=== PATIENT | female | born 1985 | race Hispanic/Latino ===

== ENCOUNTER 2018-03-22 12:07 | Emergency (ER) | payer MEDICAID, SELFPAY ==
[2018-03-22 12:08] VITALS: BP 120/95; PULSE 125; RESP 20; TEMP 36.4; O2SAT 98; BMI 23.4
--- NOTE | 2018-03-22 13:23 | ED.DCSUM_ITS ---
- ER Visit Summary Date of Service: 03/22/18 Chief Complaint: Nosebleed History of Present Illness: The patient is a 32 F presenting with nosebleed which started 20 minutes prior to arrival. She had bleeding from the left side of her nose. She denies trauma. She states she was sneezing frequently before it started. She denies other complaints. Physical Examination: Vitals are stable. Patient is afebrile. Alert no acute distress. HEENT exam dried blood left nares, no active bleeding. No blood in posterior pharynx Neck is supple. Lungs are clear and equal bilaterally. Heart is regular rate and rhythm. Extremities are unremarkable. Skin is warm and dry. Remainder of exam is unremarkable. Emergency Department Course and Treatment: Direct pressure was applied. Cotton ball soaked in Afrin was instilled in the left nares. On repeat exam there is no active bleeding. She was observed in the ED and had no further bleeding. She is advised to follow-up with her primary care physician. Advised return to ED for worsening complaints. Disposition: Discharge home Impression: Epistaxis, resolved This note was generated with [employer] dictation software. It may contain incorrect words, spelling, and punctuation that were not noted in review of the chart prior to signing ED Disposition - Plan for ED Patient: Chief Complaint: Nosebleed Referrals: Care Physician,No Primary [Primary Care Provider] -
--- NOTE | 2018-03-22 14:02 | ED.DEP ---
ED Disposition - Plan for ED Patient: Chief Complaint: Nosebleed Instructions: Nosebleed Referrals: Care Physician,No Primary [Primary Care Provider] - Francois Miller MD [NON-STAFF] -
[2018-03-22 14:12] VITALS: BP 142/100; PULSE 86; RESP 14; O2SAT 96
== END 2018-03-22 14:12 | disposition home or self-care (01) ==
LOC: ED 13:21
PROVIDERS: Emergency Provider Emergency Medicine; Family Provider Family Medicine
DX: R04.0 Epistaxis (principal)
CPT/HCPCS: 99282

== ENCOUNTER 2019-04-13 22:11 | Emergency (ER) | payer MEDICAID, SELFPAY ==
[2019-04-13 22:13] VITALS: BP 163/103; PULSE 90; RESP 18; TEMP 36.6; O2SAT 97; BMI 26.6
[2019-04-13 23:03] LABS: Bacteria 0 SEEN /hpf (None Seen); Mucous, Urine 0 SEEN /hpf (<or=2+)
[2019-04-13 23:07] LABS: Color, Urine Yellow (Yellow); Glucose, Dipstick Normal (Normal); Ketone-Dipstick Negative (Negative); Leukocyte Esterase-Dipstick 500 /ul (Negative); Nitrite-Dipstick Negative (Negative); Occult Blood-Urine 250 /ul (Negative); Protein-Dipstick 15 mg/dl (Negative); Urine Bilirubin Dipstick Negative (Negative); Urine Clarity Sl. Cloudy (Clear); Urine Urobilinogen Normal (Normal)
[2019-04-13 23:08] LABS: Absolute Lymphocyte Count 1.24 X10^3/ul (0.83-4.51); Basophil# 0.03 X10^3/uL; Basophil% 0.4 % (0-1); Eosinophil# 0.09 X10^3/uL; Eosinophils% 1.1 % (0-5); Hematocrit 42.9 % (37-47); Lymphocyte # 1.24 X10^3/ul (4.0); Lymphocyte % 15.1 % (19-41); Mean Corp Hgb Conc 32.6 g/gl (32-36); Mean Corpuscular Volume 94.9 fL (81-99); Mean Platelet Vol. 10.6 fl (6.2-12.0); Monocyte# 0.81 X10^3/uL; Monocyte% 9.9 % (0-10); Neutrophil # 6.01 X10^3/uL (2.7-7.7); Neutrophil % 73.4 % (47-70); POSITIVE COUNT NO; POSITIVE DIFFERENTIAL NO; POSITIVE MORPHOLOGY NO; Platelet Count 224 K/mm3 (150-450); RBC Distribution Width CV 12.8 % (11.6-14.6); RBC Distribution Width SD 43.6 fl (35.1-43.9); Red Blood Count 4.52 M/mm3 (4.2-5.4); White Blood Count 8.2 K/mm3 (4.4-11.0)
[2019-04-13 23:12] LABS: Internal QC Validated? YES +Cl - CLEAR BKGD; Pregnancy, Urine Negative Negative
--- NOTE | 2019-04-13 23:14 | US_ITS ---
HISTORY: PELVIC PAIN RLQ- 2 MONTHS C SECTIONS ADDITIONAL HISTORY: None provided. COMPARISON: None TECHNIQUE: Transvaginal sonographic images of the pelvis were acquired utilizing grayscale, color Doppler and spectral Doppler imaging. Subsequent transabdominal images of the ovaries were obtained with grayscale, color and spectral Doppler imaging. FINDINGS: UTERUS: Normal in size on transvaginal imaging measuring 7.4 x 4.1 x 3.4 cm. Coarsened echotexture without distinct mass. ENDOMETRIUM: Unremarkable on transvaginal imaging measuring 4 mm. OVARIES: Unremarkable measuring 2.9 x 2.8 x 2.1 cm on the right and 3.1 x 2.2 x 2.1 cm on the left. Flow is demonstrated in the ovaries was spectral Doppler evaluation. ADNEXA: No mass. FREE FLUID: None detected. US/Transvaginal Non- IMPRESSION: No acute pelvic abnormality is sonographically apparent. at 0006 Reported and signed by: Sherrell Shay MD Electronically Signed: Sherrell Shay MD at 0:06 EDT Tel , Service support ,
--- NOTE | 2019-04-13 23:14 | RAD_ITS ---
HISTORY: Pain RAD-EXT/JTNKI ADDITIONAL HISTORY: None provided. COMPARISON: None TECHNIQUE: Left hand 3 views Number of images including paperwork: 3 FINDINGS: BONES: No acute fracture. JOINTS: No subluxation. SOFT TISSUES: No distinct foreign body. RAD/Hand Min 3 Views IMPRESSION: No acute osseous abnormality. at 0009 Reported and signed by: Sherrell Shay MD Electronically Signed: Sherrell Shay MD at 0:09 EDT Tel , Service support ,
[2019-04-13 23:15] LABS: Amorphous Sediment 1+ URATE; Red Blood Cells-Urine 10-25 SEEN /hpf (0-5); Squamous Epithelial Cells - UA 0-5 SEEN /hpf (5-10); White Blood Cells 25-50 SEEN /hpf (0-5)
[2019-04-13 23:29] LABS: Anion Gap 6 (5-15); BUN 9 mg/dL (7-18); BUN/Creat Ratio 14.2 RATIO (10-20); Chloride 106 mmol/L (98-107); Creatinine, Serum 0.63 mg/dL (0.55-1.02); EST Glomerular Filtration Rate 115 mL/min (>60); Est Glom Filt Rate - Afr Amer 139 mL/min (>60); Estimated Creatinine Clearance 121.17 ml/min; Glucose 79 mg/dL (74-106); Potassium 3.1 mmol/L (3.5-5.1); Sodium Level 140 mmol/L (136-145)
--- NOTE | 2019-04-14 00:16 | ED.DCSUM_ITS ---
- ER Visit Summary Date of Service: 04/14/19 Chief Complaint: Pelvic pain and vaginal bleeding History of Present Illness: The patient is a 33 F who presents with pelvic pain and vaginal bleeding. This began actually 6 to 7 days ago. Her last menstrual period was about 2 weeks ago. She is her bleeding was initially heavy and she was passing clots. This is actually significantly decreased and she only complains of mild bleeding currently. However she continues to have pelvic pain which is sharp located suprapubically and on the right side of the pelvis. She denies any dysuria frequency urgency. No fevers nausea vomiting. She does have a history of prior ectopic with right salpingectomy and then a tubal ligation later. 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 She also complains of left hand pain worse with movement which began earlier today without known injury. Physical Examination: Blood pressure 163/103 vitals otherwise unremarkable No distress Heart regular rate and rhythm Lungs clear Abdomen soft nondistended On pelvic exam she has no active bleeding although she does have some thin yellow cervical discharge no cervical friability or erythema no active bleeding Patient does have some tenderness of the right pelvis and suprapubically Patient has tenderness of the left hand but no deformity active full range of motion brisk capillary refill normal sensation Test Results: CBC BMP notable only for potassium 3.1. negative. UA does show signs of possible UTI with 25-50 WBCs. 500 leukocyte esterase. Transvaginal pelvic ultrasound shows no acute abnormality and x-ray of the hand shows no acute osseous abnormality. Emergency Department Course and Treatment: Work-up as above unremarkable except UTI. We will treat with Bactrim. She was also given a prescription for naproxen for pain. We referred her to gynecology for outpatient follow-up. Treatment Plan: [] Disposition: Discharge Impression: Pelvic pain Left hand pain UTI This note was generated with [employer] dictation software. It may contain incorrect words, spelling, and punctuation that were not noted in review of the chart prior to signing ED Disposition - Plan for ED Patient: Referrals: Care Physician,No Primary [Primary Care Provider] -
--- NOTE | 2019-04-14 00:22 | ED.DEP ---
ED Disposition - Plan for ED Patient: Instructions: PELVIC PAIN, Unknown Cause, Understanding Urinary Tract Infections (UTIs) Prescriptions: Smz/Tmp Ds [Bactrim Ds] 1 tab PO BID #6 tab Prescription Printed Naproxen [Naprosyn] 500 mg PO BID #20 tab Prescription Printed Referrals: Care Physician,No Primary [Primary Care Provider] - Heber Clark [STAFF PHYSICIAN] -
[2019-04-14 00:34] VITALS: BP 158/98; PULSE 84; PULSE 87; RESP 16; O2SAT 98
[2019-04-14 02:02] LABS: Chlamydia Trachomatis by PCR Negative (Negative); Probe Check PASS
[2019-04-14 02:03] LABS: Neisserai gonorrhoeae by PCR Positive (Negative)
--- NOTE | 2019-04-14 02:06 | ED.RN ---
LAB CALLED POSITIVE GONORRHEA ON THIS PT, DR WEBBER NOTIFIED, WILL HAVE MORNING STAFF CALL PT AND ADVISE HER OF RESULT
== END 2019-04-14 00:35 | disposition home or self-care (01) ==
LOC: ED 23:57
PROVIDERS: Emergency Provider Emergency Medicine
DX: N39.0 Urinary tract infection, site not specified (principal); A54.9 Gonococcal infection, unspecified; N93.9 Abnormal uterine and vaginal bleeding, unspecified; R10.2 Pelvic and perineal pain; M79.642 Pain in left hand; I10 Essential (primary) hypertension
CPT/HCPCS: 73130; 76830; 80048; 81001; 81025; 85025; 87491; 87591; 93976; 99283; A4216

== ENCOUNTER 2019-04-14 08:05 | Emergency (ER) | payer MEDICAID, SELFPAY ==
[2019-04-13 22:13] VITALS: BMI 26.6
[2019-04-14 08:07] VITALS: BP 141/90; PULSE 104; RESP 17; TEMP 36.7; O2SAT 97; BMI 27.8
[2019-04-14] MEDS: HYDROmorphone 1 MG/ML Syringe IV (09:02)
[2019-04-14] MEDS: Ondansetron 4 MG/2 ML Vial IV (09:02)
[2019-04-14] MEDS: 0.9% Normal Saline 1,000 ML 999 ML IV (09:02)
[2019-04-14 09:21] LABS: Erythrocyte Sedimentation Rate 9 mm/hr (0-20)
[2019-04-14 09:23] LABS: Absolute Lymphocyte Count 1.18 X10^3/ul (0.83-4.51); Absolute Neutrophil Count 11.2 X10^3/uL (2.0-7.7); Basophil# 0.02 X10^3/uL; Basophil% 0.1 % (0-1); Eosinophil# 0.06 X10^3/uL; Eosinophils% 0.4 % (0-5); Hematocrit 43.4 % (37-47); Hemoglobin 14.7 g/dl (12.0-15.0); Lymphocyte # 1.18 X10^3/ul (4.0); Lymphocyte % 8.8 % (19-41); Mean Corp Hgb Conc 33.9 g/gl (32-36); Mean Corpuscular Hgb 32.4 pg (27.0-32.0); Mean Corpuscular Volume 95.6 fL (81-99); Mean Platelet Vol. 10.5 fl (6.2-12.0); Monocyte# 0.88 X10^3/uL; Monocyte% 6.6 % (0-10); Neutrophil # 11.23 X10^3/uL (2.7-7.7); Platelet Count 224 K/mm3 (150-450); RBC Distribution Width CV 12.9 % (11.6-14.6); RBC Distribution Width SD 45.3 fl (35.1-43.9); Red Blood Count 4.54 M/mm3 (4.2-5.4); White Blood Count 13.4 K/mm3 (4.4-11.0)
[2019-04-14 09:24] LABS: POSITIVE COUNT NO; POSITIVE DIFFERENTIAL NO; POSITIVE MORPHOLOGY NO
[2019-04-14 09:28] LABS: Anion Gap 7 (5-15); BUN 7 mg/dL (7-18); BUN/Creat Ratio 12.9 RATIO (10-20); CRP 8.53 mg/L (0.0-3.0); Chloride 102 mmol/L (98-107); Creatinine, Serum 0.54 mg/dL (0.55-1.02); EST Glomerular Filtration Rate 137 mL/min (>60); Est Glom Filt Rate - Afr Amer 166 mL/min (>60); Estimated Creatinine Clearance 147.81 ml/min; Glucose 94 mg/dL (74-106); Potassium 3.4 mmol/L (3.5-5.1); Sodium Level 139 mmol/L (136-145)
--- NOTE | 2019-04-14 09:49 | ED.DCSUM_ITS ---
- ER Visit Summary Date of Service: 04/14/19 Chief Complaint: Hand pain pain History of Present Illness: The patient is a 33 F who presents with left hand pain. The symptoms started last night. The patient was seen in the ED last night for pelvic pain and bleeding. She was diagnosed with gonorrhea. X-rays were performed of her left hand and were negative. She was discharged home with anti-inflammatories. Patient woke up this morning with increasing hand pain. She is right-hand dominant. She has pain primarily in her left index finger. Her left index finger is swollen and she cannot even move it because it so painful. She never had this before. Denies any history of IV drug abuse. Denies systemic symptoms like fever. Denies any recent trauma or injuries. Physical Examination: Left hand is swollen primarily over the left index finger. She has fusiform swelling. Skin is intact. Finger is held in flexion. Pain over the flexor tendons. Pain with extension. Test Results: White count has increased to 13.4. Potassium 3.4. ESR 9 and CRP 8.53. X-rays were not repeated. Emergency Department Course and Treatment: Patient treated with ceftriaxone for her gonorrhea infection. I repeated this. She now has a leukocytosis. CRP is elevated. Patient was treated with Dilaudid, fluids, Zofran. I contacted [facility] who advised outpatient follow-up. I believe the patient should be evaluated by hand surgery today. Patient was transferred to [facility]. We do not have hand surgery or the appropriate specialist available at this facility. Treatment Plan: As above Disposition: Transfer Impression: 1. Left hand pain 2. Gonorrhea This note was generated with [employer] dictation software. It may contain incorrect words, spelling, and punctuation that were not noted in review of the chart prior to signing ED Disposition - Plan for ED Patient: Referrals: Michael Richter MD [Primary Care Provider] -
[2019-04-14] MEDS: Ceftriaxone 500 MG Vial 250 MG IM (10:06)
[2019-04-14 10:07] VITALS: BP 132/83; PULSE 97; RESP 16; O2SAT 97
[2019-04-14 10:18] VITALS: BP 137/72; PULSE 69; RESP 12; O2SAT 97
== END 2019-04-14 10:39 | disposition short-term general hospital (02) ==
PROVIDERS: Emergency Provider Emergency Medicine; Family Provider Internal Medicine; PCP Internal Medicine
DX: M79.642 Pain in left hand (principal); M79.89 Other specified soft tissue disorders; A54.9 Gonococcal infection, unspecified; Z72.0 Tobacco use
CPT/HCPCS: 80048; 85025; 85652; 86140; 96361; 96372; 96374; 96375; 99284; J7030; J2405

== ENCOUNTER 2020-03-20 11:31 | Emergency (ER) | payer MEDICAID, SELFPAY ==
[2020-03-20 11:32] VITALS: BP 157/100; PULSE 103; RESP 17; TEMP 36.6; O2SAT 97; BMI 27.1
--- NOTE | 2020-03-20 11:44 | CT_ITS ---
STUDY: CT CHEST WITHOUT CONTRAST REASON FOR EXAM: Female, 34 years old. PT STATED PAIN AFTER VOMITING TODAY RADIATION DOSAGE (If Supplied By Facility): CTDIvol = ( 9.68 ) mGy, DLP = ( 340.89 ) mGycm TECHNIQUE: Transaxial imaging was performed without the administration of intravenous contrast material. Multiplanar coronal and sagittal images were reformatted. Individualized dose optimization techniques were used for this CT. COMPARISON: None. FINDINGS: The lungs are normal. There is no demonstrated pleural abnormality. Normal heart and pericardium. Normal mediastinum. Normal hilar regions. Normal unenhanced pulmonary arteries. Normal aorta arch and descending thoracic aorta. Normal osseous structures. There is a 4.6 cm linear collection of air in the region of the mid esophagus. I cannot rule out a small esophageal tear. Correlation with a Gastrografin swallow is recommended. CT/Chest without Contrast IMPRESSION: Possible focal tear in the mid esophagus as described. Correlation with a Gastrografin swallow is recommended. Electronically Signed: Clif Houston, at 12:43 EDT , Service support ,
--- NOTE | 2020-03-20 11:44 | ED.VIS.GEN ---
History of Present Illness Chief Complaint: GI Bleed Informant: Patient Onset: Today Narrative: Patient reports a history of bulimia. She is had increased anxiety recently. When she made herself vomit this morning she noted black emesis. Since that time she states she cannot drink without having significant pain in her chest. She is concerned that she may have tore something. She states she is never had blood in her emesis previously. She denies dark tarry stools. - Past Medical History (1) Bulimia Status: Chronic Past Medical History - Allergies and Home Meds Allergies/Adverse Reactions: Allergies No Known Allergies Allergy (Verified 03/20/20 11:31) Primary Care Physician: Michael Richter MD [STAFF PHYSICIAN] - Prior records reviewed: Yes Smoking Status: Current every day smoker Review of Systems General: Denies: Chills, Fever Eyes: Denies: Visual changes - bilaterally ENT: Denies: Bilateral ear pain Cardiovascular: Reports: Chest pain Respiratory: Denies: Dyspnea Gastrointestinal: Reports: Vomiting. Denies: Melena, Hematochezia Genitourinary: Denies: Dysuria Musculoskeletal: Denies: Extremity Pain Skin: Denies: Rash Neurological: Denies: Headache Hematologic: Denies: Easy bruising, Easy bleeding Allergy: Denies: Uticaria Physical Exam Vital Signs/Narrative: Vital Signs Temp Pulse Resp BP Pulse Ox 03/20/20 11:32 97.9 F 103 H 17 157/100 H 97 Inital Vital Signs reviewed: Yes General: Well nourished, Well developed Head: Normocephalic ENT: Moist mucous membranes Neck: Supple Cardiovascular: Regular rate, Regular rhythm Respiratory: No distress, CTA bilaterally Abdomen: Soft, Nontender, Hypoactive bowel sounds Extremities: Nontender Skin: Normal color Neurological: Alert, Oriented x3 Psychological: Normal affect Diagnostic/Tx/Re-eval Impressions Chest CT 03/20/20 11:44 IMPRESSION: Possible focal tear in the mid esophagus as described. Correlation with a Gastrografin swallow is recommended. Electronically Signed: Clif Houston, at 12:43 EDT , Service support , Barium Swallow X-Ray 03/20/20 13:01 IMPRESSION: Normal plain film x-ray examination (barium swallow) of the esophagus. Electronically Signed: Clif Houston, at 14:00 EDT , Service support , 03/20/20 11:44 CT Chest [Chest without Contrast] [CT] Stat 03/20/20 13:01 Xray Esophagus [Esophagus Single Contrast] [RAD] Stat Laboratory Results 03/20/20 03/20/20 03/20/20 11:50 11:50 11:50 WBC 8.5 RBC 3.96 L Hgb 12.4 Hct 37.3 MCV 94.2 MCH 31.3 MCHC 33.2 RDW Std Deviation 48.2 H RDW Coeff of Yifan 14.0 Plt Count 271 MPV 9.5 Immature Gran % (Auto) 0.400 Neut % (Auto) 70.0 Lymph % (Auto) 20.6 Tensas % (Auto) 8.1 Eos % (Auto) 0.1 Baso % (Auto) 0.8 Absolute Neuts (auto) 6.0 Absolute Lymphs (auto) 1.75 Nucleated RBC % 0 PT 13.7 INR 1.1 APTT 25.4 Sodium 141 Potassium 3.3 L Chloride 106 Carbon Dioxide 27.0 Anion Gap 8 BUN 11 Creatinine 0.59 Estim Creat Clear Calc 97.42 Est GFR (MDRD) Af Amer 150 Est GFR (MDRD) Non-Af 124 BUN/Creatinine Ratio 18.6 Glucose 82 Calcium 7.9 L - Medical Decision Making CT scan initially showed possible tear in her esophagus but no evidence of air in the mediastinum. Gastrografin swallow study did not reveal any acute abnormalities. Test results are discussed with the patient. She will be given something to help with anxiety and nausea at home. I advised her the most important thing at this point is that she needs to ensure that she is not making herself vomit as this could tear. She will also be given antacid and something to help with pain. ED Disposition - Plan for ED Patient: Disposition: Home or Assisted Living Diagnosis: Esophageal injury Instructions: ED Bleed UGI Stable Prescriptions: Lorazepam [Ativan] 0.5 mg PO TID PRN #10 tablet PRN Reason: Anxiety Transmission Status: Sent to [facility] Hydrocodone Bitart/Apap 5-325 [Mercer 5MG-325MG] 1 tablet PO Q4H PRN PRN 2 Days #10 tablet PRN Reason: Pain Transmission Status: Sent to [facility] Omeprazole [Prilosec] 20 mg PO DAILY #30 cap Transmission Status: Pending to [facility] Ondansetron [Zofran Odt] 4 mg PO Q8H PRN PRN #10 tab PRN Reason: Nausea Transmission Status: Pending to [facility] Referrals: Michael Richter MD [STAFF PHYSICIAN] - 5-7 Days
[2020-03-20 12:01] LABS: Absolute Lymphocyte Count 1.75 X10^3/uL (0.83-4.51); Basophil# 0.07 X10^3/uL; Basophil% 0.8 % (0-1); Eosinophil# 0.01 X10^3/uL; Eosinophils% 0.1 % (0-5); Hematocrit 37.3 % (37-47); Hemoglobin 12.4 g/dL (12.0-15.0); Lymphocyte # 1.75 X10^3/ul (4.0); Lymphocyte % 20.6 % (19-41); Mean Corp Hgb Conc 33.2 g/dL (32-36); Mean Corpuscular Hgb 31.3 pg (27.0-32.0); Mean Corpuscular Volume 94.2 fL (81-99); Mean Platelet Vol. 9.5 fl (6.2-12.0); Monocyte# 0.69 X10^3/uL; Monocyte% 8.1 % (0-10); NRBC Flagged by Analyzer 0 % (0-5); Neutrophil # 5.96 X10^3/uL (2.7-7.7); Platelet Count 271 K/mm3 (150-450); RBC Distribution Width SD 48.2 fl (35.1-43.9); Red Blood Count 3.96 M/mm3 (4.2-5.4); White Blood Count 8.5 K/mm3 (4.4-11.0)
[2020-03-20 12:12] LABS: International Normalized Ratio 1.1; Prothrombin Time (Protime)PT. 13.7 SECONDS (11.7-14.9)
[2020-03-20 12:13] LABS: Partial Thromboplast Time 25.4 Seconds (24.1-36.2)
[2020-03-20 12:14] LABS: Anion Gap 8 (5-15); BUN 11 mg/dL (7-18); BUN/Creat Ratio 18.6 RATIO (10-20); Calcium,Total 7.9 mg/dL (8.5-10.1); Chloride 106 mmol/L (98-107); Creatinine, Serum 0.59 mg/dL (0.55-1.02); EST Glomerular Filtration Rate 124 mL/min (>60); Est Glom Filt Rate - Afr Amer 150 mL/min (>60); Estimated Creatinine Clearance 97.42 ml/min; Glucose 82 mg/dL (74-106); Potassium 3.3 mmol/L (3.5-5.1); Sodium Level 141 mmol/L (136-145)
--- NOTE | 2020-03-20 13:01 | RAD_ITS ---
STUDY: X-RAY - ESOPHAGUS (Gastrografin SWALLOW) WITH FLUOROSCOPY REASON FOR EXAM: Female, 34 years old. PAIN AFTER VOMITING BLOOD, HX BULIMIA, GASTRO -- 15 IMAGES, -- 5.67 MGY TECHNIQUE: 15 view(s) of the esophagus were obtained following swallowing of barium. FLUOROSCOPY TIME (if supplied): (0:14) minutes/seconds COMPARISON: None. FINDINGS: There is no demonstrated esophageal foreign body. There is no demonstrated stricture or mucosal abnormality. Normal gastroesophageal junction, without a demonstrated hiatal hernia. Normal visualized aortic arch and descending thoracic aorta. Normal visualized pulmonary parenchyma. Normal visualized osseous structures of the thorax. RAD/Esophagus Single Contrast IMPRESSION: Normal plain film x-ray examination (barium swallow) of the esophagus. Electronically Signed: Clif Houston, at 14:00 EDT , Service support ,
[2020-03-20] MEDS: Ondansetron 4 MG/2 ML Vial IV (13:14)
[2020-03-20] MEDS: Morphine 4 MG/ML Syringe IV (13:14)
[2020-03-20 13:31] VITALS: BP 131/93; PULSE 96; RESP 18; O2SAT 98
--- OUTSIDE RECORDS SUMMARY | 2020-08-06 17:50 | XMS RPT_ITS | CCD ---
:1985 External Reference #:[id number] Author Organization [facility] Care Team Providers Name Role Phone Michael Fabian Primary Care Provider Medications Medication Name Sig Date Prescriber Location Amoxicillin / amoxicillin-cla 06-27-2020 - Elsa Marin) [facility] Clavulanate vulanic acid 07-08-2020 Luis ([id number]) (AUGMENTIN) 875-125 mg per tablet Indications: Acute otitis media, left Take 1 tablet by mouth twice daily for 10 days. 20 tablet 0 06/28/2020 07/08/2020 Active Comment: Take 1 tablet by mouth twice daily for 10 days. 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 30 tablet 0 05/14/2020 Active Comment: Take 1 tablet by mouth once daily. Ciprofloxacin / ciprofloxacin-dexamethasone 06-28-2020 - Francois Corbett Dexamethasone (CIPRODEX) 0.3-0.1 % otic 07-05-2020 () Luis Oliver linic suspension Indications: Acute (58950) otitis media, left Use 4 Drops in the left ear twice daily for 7 days. 7.5 mL 0 06/28/2020 07/05/2020 Active Comment: Use 4 Drops in the left ear twice daily for 7 days. Famotidine famotidine (PEPCID) 06-28-2020 - Elsa Marin) [facility] 20 mg tablet 07-28-2020 Luis ([id number]) Indications: Pruritus Take 1 tablet by mouth twice daily. 60 tablet 0 06/28/2020 07/28/2020 Active Comment: Take 1 tablet by mouth twice daily. FLUoxetine FLUoxetine (PROZAC) 20 04-23-[address] [facility] mg capsule Indications: (441 95) SANDY (generalized anxiety disorder) , Bulimia , Anorexia nervosa with bulimia Take 1 capsule by mouth once daily. 30 capsule 2 04/23/2020 Active Comment: Take 1 capsule by mouth once daily. hydrOXYzine hydrOXYzine HCl (ATARAX) 04-23-2020 Simón Lopez [facility] 25 mg tablet (38681) Indications: SANDY (generalized anxiety disorder) Take 1 tablet by mouth every 6 hours as needed for Itching/Rash. 30 tablet 3 04/23/2020 Active Comment: Take 1 tablet by mouth every 6 hours as needed for Itching/Rash. Loratadine loratadine (CLARITIN) 06-28-2020 Elsa Marin) [facility] 10 mg tablet Porfirioley (84383) Indications: Pruritus Take 1 tablet by mouth once daily. 30 tablet 0 06/28/2020 Active Comment: Take 1 tablet by mouth once daily. LORazepam LORazepam (ATIVAN) 0.5 mg 03-20-2020 [facility] Provider [facility] ([id number]) Take 0.5 mg by mouth three times daily as needed. 0 03/20/2020 Active Comment: Take 0.5 mg by mouth three t imes daily as needed. Ondansetron ondansetron orally 04-23-2020 Simón Lopez [facility] disintegrating (ZOFRAN (4419 5) ODT) 4 mg disintegrating tablet Indications: Nausea , Diarrhea, unspecified type Take 1 tablet by mouth every 6 hours as needed for Nausea/Vomiting. 30 tablet 2 04/23/2020 Active Comment: Take 1 tablet by mouth every 6 hours as needed for Nausea/Vomiting. pantoprazole pantoprazole 04-23-2020 Simón Lopez [facility] (PROTONIX) 40 mg tablet (441 95) Take 1 tablet by mouth daily before breakfast. Take on empty stomach, 1/2 hr before meal. 30 tablet 2 04/23/2020 Active Comment: Take 1 tablet by mouth daily before breakfast. Take on empty stomach, 1/2 hr before meal. Problems Active Problems Category Problem Name Status Date Location Essential hypertension Essential hypertension Active 07-22-20 18 - [facility] ([id number]) Immunizations and Contact with and Active [facility] screening for infectious (suspected) exposure (74294) disease to other viral communicable diseases Miscellaneous mental Eating disorder Active 07-22-2018 - [facility] health disorders (93512) Other inflammatory Itching of skin Active [facility] condition of skin (44086) Substance-related Substance misuse Active 07-22-2018 - [facility] disorders behavior (10542) Unclassified Patient encounter Active [facility] status (93283) Past or Other Problems Category Problem Name Status Date Location Otitis media and Acute left otitis Completed [facility]-14-2018 [facility] related conditions media (55481) Results Result Name Value Range Unit Interpretation Flag Date [facility] Telephone (INTMWS) Normal 08-05-2020 [facility] JOSE BA ([id number]) 1985 [facility] Time Provider Department ([id number]) 08/05/20 MICHAEL FABIAN INTWS During your visit today, we recorded the following informati on about you: Allison Mariscal LPN 08/05/2020 9:24 AM Signed rec'd fax results from [facility] of pts 0 COVID 19 HOLLY test. Results are note detected Allison Mariscal LPN 08/05/2020 10:19 AM Signed Pt has reviewed this via my chart. Allergies As of Date: 08/05/2020 (No Known Allergies) Date Reviewed: 06/28/2020 Reviewed by: Modesta Mc (Chart Collector) SHIRA Nieto - Fully Assessed Reason for Visit: Results [95] Order(s):2019 CORONAVIRUS [SQCOVID] Order #: [id number] Prescriptions as of 08/05/2020 Sig: LORATADINE 10 MG TABLET Take 1 tablet by mouth once d* LORAZEPAM 0.5 MG TABLET Take 0.5 mg by mouth three ti* CETIRIZINE 10 MG TABLET Take 1 tablet by mouth once d* Patient not taking: Reported on 06/27/2020 FLUOXETINE 20 MG CAPSULE Take 1 capsule by mouth once * ONDANSETRON 4 MG DISINTEGRATI* Take 1 tablet by mouth every * HYDROXYZINE HCL 25 MG TABLET Take 1 tablet by mouth every * Patient not taking: Reported on 06/27/2020 PANTOPRAZOLE 40 MG TABLET,DEL* Take 1 tablet by mouth daily * Problem List As Of Date 08/05/2020 Noted Resolved Substance use disorder [F19.90] 07/22/2018 Hypertension, essential [I10] 07/22/2018 Eating disorder [F50.9] 07/22/2018 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 Author Type: Nurse Practitioner Type: Progress Notes Filed: 07/31/2020 1:54 PM Note Text: This Team Access Model visit is a phone encounter. It requir ed patient-provider interaction for the medical decision making as documented below. Patient agrees to the visit: Yes Patient Location: [place] CC: Patient presents with: Covid19 Concern HPI: Jose Ba is a 35 year old female who is contacted jono wallace for a phone visit. This is an established patient of Dr. Michael patterson MD. Respiratory symptoms present for 5 days MAJOR COVID-19 SYMPTOMS: *Coughing: Yes *Shortness of breath: Yes *Difficulty breathing: No MINOR COVID-19 SYMPTOMS: Fever: (Temp 100.4F or greater) No Chills: No Headache: Yes Acute loss of smell or taste: No Sore throat: No Muscle aches: Yes Vomiting: No Diarrhea: No Other Associated symptoms: sneezing. Treatments tried include nothing so far. Has the patient had any ill contacts? Yes Has the patient had contact with anyone confirmed or a proba ble case with COVID-19 infection in the last 14 days? Yes co-worker tested positive but unsure if they were symptomatic. Last exposure would have be enT07/23 Does the patient have family with confirmed COVID-19 infecti on: No Has the patient traveled or resided in an area with sustaine d or ongoing community transmission of COVID-19? Unsure History of asthma, frequent episodes of bronchitis, chronic bronchitis, bronchiectasis or COPD: No Smoker: Yes 1 pack every 3 days Seasonal/environmental allergies: Yes ROS General: Decreased appetite: No Signs of dehydration (low fluid intake or voiding, diarrhea, dry mucus membranes): No Decreased level of consciousness: No PAST MEDICAL HISTORY Diagnosis Date - Chronic otitis media after insertion of tympanic ventilati on tube, right Hearing loss, right - Eating disorder 07/22/2018 bulimia x 12 years. - History of mood disorder - Hypertension, essential 07/22/2018 - Substance use disorder 07/22/2018 PAST SURGICAL HISTORY Procedure Laterality Date - PAST SURGICAL HISTORY OF 09/30/2015 - PAST SURGICAL HISTORY OF 05/24/2009 ALLERGIES Patient has no known allergies. MEDICATIONS loratadine (CLARITIN) 10 mg tablet Take 1 tablet by mouth on ce daily. LORazepam (ATIVAN) 0.5 mg Take 0.5 mg by mouth three times d aily as needed. cetirizine (ZYRTEC) 10 mg tablet Take 1 tablet by mouth once daily. FLUoxetine (PROZAC) 20 mg capsule Take 1 capsule by mouth on ce daily. ondansetron orally disintegrating (ZOFRAN ODT) 4 mg disinteg rating tablet Take 1 tablet by mouth every 6 hours as needed for Nausea/Vo miting. hydrOXYzine HCl (ATARAX) 25 mg tablet Take 1 tablet by mouth every 6 hours as needed for Itching/Rash. pantoprazole DR (PROTONIX) 40 mg tablet Take 1 tablet by lucina th daily before breakfast. Take on empty stomach, 1/2 hr before meal. FAMILY HISTORY Adopted: Yes Social History Tobacco Use - Smoking status: Current Every Day Smoker Packs/day: 1.00 Years: 19.00 Pack years: 19.00 Last attempt to quit: 11/25/2014 Years since quittin.6 - Smokeless tobacco: Never Used Substance Use Topics - Alcohol use: Yes Alcohol/week: 35.0 standard drinks Types: 14 Cans of Beer (12oz) per week Comment: h/o alcoholism - Drug use: Yes Types: Amphetamines, Crack Cocaine, Cocaine, Opiates Comment: none for 2 months. Exam Deferred physical exam as visit was completed over the phone Frontal sinus tenderness by self palpation;No Maxillary sinus tenderness by self palpation :No Tender cervical adenopathy by self palpation :No Respiratory distress :No Coughing noted :No Audible wheezing noted :No PATIENT'S HIGH RISK CATEGORY ASSESSMENT: No high risk factors This patient encounter involved the screening or treatment o f novel coronavirus infection (COVID-19). ASSESSMENT/PLAN: 1. Suspected COVID-19 virus infection - ICD9: V01.79, ICD10: Z20.828 appears to have COVID-19 infection, is low risk and symptoms are mild or improving. Recommend COVID-19 testing. patient does not have transportation, needs order sent to [facility]. Advised to self cyndi rantine until further notice - Discussed viral etiology and rationale for treatment. - Symptomatic treatment with prn analgesia. The patient may also use OTC cough/cold medicines as needed. Supportive care with fluids and rest. - Follow up in 5 to 7 days if symptoms persist or sooner if worsening of symptoms Prescription instructions reviewed with patient as applicabl e. Potential red flag symptoms discussed with the patient. Reviewed appro priate action plan to take if red flag symptoms occur. Patient agreeable t o treatment plan. During this patient visit I have spent approximately 15 michael declan in counseling regarding medications and testing. Lesvia Willett APRN.RICARDO [facility]) Normal 07-02-2020 [facility] JOSE BA ([id number]) 1985 [facility] Date Time Provider Department ([id number]) 07/02/20 MICHAEL FABIAN During your visit today, we recorded the following informati on about you: Modesta Nieto LPN, PHONE BANKER 07/02/2020 2:02 PM Signed ----- Message from Elsa Smith sent at 2019 12:59 PM EDT ----- HIV screening negative. Thyr oid studies in normal range. Glucose level slightly low at 62. May be due to fasting prior to labs. Other labs unremarkable. Continue abx an d ear drops as prescribed and f/u with ENT. Modesta Nieto LPN, LPN 07/02/2020 2:04 PM Signed Message sent via my chart. Allergies As of Date: 07/02/2020 (No Known Allergies) Date Reviewed: 06/28/2020 Reviewed by: Modesta Mc (Shira) SHIRA Nieto - Fully Assessed Reason for Visit: Results [95] Prescriptions as of 07/02/2020 Sig: LORATADINE 10 MG TABLET Take 1 tablet by mouth once d* FAMOTIDINE 20 MG TABLET Take 1 tablet by mouth twice * AMOXICILLIN 875 MG-POTASSIUM * Take 1 tablet by mouth twice * CIPROFLOXACIN 0.3 %-DEXAMETHA* Use 4 Drops in the left ear t * LORAZEPAM 0.5 MG TABLET Take 0.5 mg by mouth three ti* CETIRIZINE 10 MG TABLET Take 1 tablet by mouth once d* Patient not taking: Reported on 06/27/2020 FLUOXETINE 20 MG CAPSULE Take 1 capsule by mouth once * ONDANSETRON 4 MG DISINTEGRATI* Take 1 tablet by mouth every * HYDROXYZINE HCL 25 MG TABLET Take 1 tablet by mouth every * Patient not taking: Reported on 06/27/2020 PANTOPRAZOLE 40 MG TABLET,DEL* Take 1 tablet by mouth daily * Problem List As Of Date 07/02/2020 Noted Resolved Substance use disorder [F19.90] 07/22/2018 Hypertension, essential [I10] 07/22/2018 Eating disorder [F50.9] 07/22/2018 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 A Practica l Approach for the Verifications and Determination of Site- and Trimester-Specific Reference Intervals for Thyroid Function tests in . Thyroid, 2019:29:3:412-420. Chucho Rajan, et al. 2017 Guide lines of the [place] Thyroid Association for the Diagnosis and Management of Thyroid Disease during and the . Thyroid, 2017:27:3:315-389. Performed By: #### TSH, CMP, CBC, HIV12C ####[facility] [address] [place], [place] [phone] progress on 2020-06 PROGRESS HNO ID: [id number] Normal 06-28-2020 [facility] Author: Elsa Marin) Luis Corbett ([id number]) Service: ? Author Type: Physician Type: Progress Notes Filed: 06/28/2020 10:53 AM Note Text: Chief Complaint Patient presents with: Ear Problem: left ear still infected and draining and painfu l going on for past 2 months, pt states itching terrible everywhere nothing has helped. HPI Jose Ba is a 35 year old female who presents here tod ay for Above Complaints.. Patient with left ear infection which has been present for t he last month and draining for the last 10 days. Evaluated in UC yesterday and was started on augmentin, which she has not picked up. Stating s he has been on augmentin recently, but that was for dental infection not ea r infection. Treated with ofloxacin ear drops for otitis externa about a month ago without improvement in her symptoms. Also complaining of generalized itching without rash over e last 6 weeks. Has not changed detergents, creams, OTC medications. Treated with zyrtec previously without relief. Denies rash, illicit drug use. Admits to occasional night sweats without fever or weight loss. Past medical history, appointments, medications, allergies r eviewed. Previous Medical History PAST MEDICAL HISTORY Diagnosis Date - Chronic otitis media after insertion of tympanic ventilati on tube, right Hearing loss, right - Eating disorder 07/22/2018 bulimia x 12 years. - History of mood disorder - Hypertension, essential 07/22/2018 - Substance use disorder 07/22/2018 Previous Surgical History PAST SURGICAL HISTORY Procedure Laterality Date - PAST SURGICAL HISTORY OF 09/30/2015 - PAST SURGICAL HISTORY OF 05/24/2009 Family History FAMILY HISTORY Adopted: Yes Patient Allergies ALLERGIES No Known Allergies Current Medications Current Outpatient Medications on File Prior to Visit Medication Sig - pantoprazole DR (PROTONIX) 40 mg tablet Take 1 tablet by m outh daily before breakfast. Take on empty stomach, 1/2 hr before meal. - LORazepam (ATIVAN) 0.5 mg Take 0.5 mg by mouth three times daily as needed. - amoxicillin-clavulanic acid (AUGMENTIN) 875-125 mg per tab let Take 1 tablet by mouth twice daily for 10 days. (Patient not taking : Reported on 06/28/2020 ) - cetirizine (ZYRTEC) 10 mg tablet Take 1 tablet by mouth on ce daily. (Patient not taking: Reported on 06/27/2020 ) - FLUoxetine (PROZAC) 20 mg capsule Take 1 capsule by mouth once daily. - ondansetron orally disintegrating (ZOFRAN ODT) 4 mg disint egrating tablet Take 1 tablet by mouth every 6 hours as needed for Na usea/Vomiting. - hydrOXYzine HCl (ATARAX) 25 mg tablet Take 1 tablet by lucina th every 6 hours as needed for Itching/Rash. (Patient not taking: Repor jorge on 06/27/2020 ) No current facility-administered medications on file prior t o visit. Social History Social History Tobacco Use - Smoking status: Current Every Day Smoker Packs/day: 1.00 Years: 19.00 Pack years: 19.00 Last attempt to quit: 11/25/2014 Years since quittin.5 - Smokeless tobacco: Never Used Substance Use Topics - Alcohol use: Yes Alcohol/week: 35.0 standard drinks Types: 14 Cans of Beer (12oz) per week Comment: h/o alcoholism - Drug use: Yes Types: Amphetamines, Crack Cocaine, Cocaine, Opiates Comment: none for 2 months. Review of Symptoms REVIEW OF SYSTEMS See HPI EXAM: BP 120/84 (BP Site: Left Arm, BP Position: Sitting, BP Cuff Size: Regular Adult) Pulse 62 Temp 37.3 ?C (99.1 ?F) Resp 16 Wt 64 .4 kg (142 lb) LMP 07/17/2018 (Approximate) BMI 27.73 kg/m? General Appearance: Well appearing, alert, in no acute distr ess, well-hydrated, well nourished. Scratching repeatedly during exam. Skin: Skin color, texture, turgor normal, no suspicious rash es or lesions. Ears: Right ear canal and TM normal. Left TM not visible due to canal swelling with copious purulent drainage. Health Maintenance List HEPATITIS C SCREENING due on 2004 HIV SCREENING due on 2004 BP CONTROLLED (<130/80) due on 2004 ONE PNEUMOVAX PRIOR TO AGE 65 due on 2005 PAP TESTING due on 2007 HPV TESTING due on 2016 INFLUENZA(1) due on 06/25/2020 DTAP,TDAP,TD(1 - Tdap) due on 06/28/2021 ANNUAL PCP TEAM CHRONIC DISEASE VISIT due on 04/23/2021 MENINGOCOCCAL CONJUGATE Completed ASSESSMENT/PLAN: 1. Acute otitis media, left - ICD9: 382.9, ICD10: H66.92 (pr imary diagnosis) Start augmentin as prescribed. Add ciprodex drops to be used BID as directed. Possible perforation of TM. If not improving with abx and drops will have her follow up with ENT for further evaluation and treatment. - CONSULT TO ENT - AMOXICILLIN 875 MG-POTASSIUM CLAVULANATE 125 MG TABLET - CIPROFLOXACIN 0.3 %-DEXAMETHASONE 0.1 % EAR DROPS,SUSPENSI ON 2. Pruritus - ICD9: 698.9, ICD10: L29.9 Start H1 and H2 gamaliel and will refer to ENT/behavioral health counselor for evaluation and testing. Obtain labs as ordered. Call if not improving sympt oms in 2-3 days. - CONSULT TO ENT - LORATADINE 10 MG TABLET - FAMOTIDINE 20 MG TABLET - CBC - COMP METABOLIC PANEL - TSH BLD 3. Screening for HIV (human immunodeficiency virus) - ICD9: V73.89, ICD10: Z11.4 - CBC - COMP METABOLIC PANEL - TSH BLD - HIV 1 2 COMBO(AG/AB),WITH REFLEX TO DIFFERENTIATION Elsa Smith MD [id number] ag +[id number] ab on 2020-06-28 HIV 12 Ag/Ab Non Reactive Non Reactive Normal 06-28-2019 [facility] ([id number]) Comment: Performed By: #### TSH, CMP, CBC, HIV12C ####[facility] [address] [place], [place] [phone] HIV-1/2 Antibody Normal 06-28-2020 [facility] ([id number]) Comment: Result Comment: Test Not Ind icated Negative No evidence of HIV-1 or HIV- 2 infection. Should recent infection be suspected, repeat testing may be considered 2-3 weeks after this draw. HIV Information: [place] Rev. C ode 3701.243(E): This information has been di sclosed to you from confidential records protected from disclosure by state law. You shall make no further disclosure of this information without the specific, written, and i nformed release of the indiv idual to whom it pertains or as otherwise permitted by state law. A general authorization for the release of medical or other information is not sufficient for the purpose of the release of HIV test results or diagnoses. Performed By: #### TSH, CMP, CBC, HIV12C ####[place] [address] [place], [place] [phone] comp metabolic panel on 2020-06-28 Albumin [Mass/Vol] 4.2 3.9-4.9 g/dL Normal 06-28-2020 [facility] ([id number]) Comment: Performed By: #### TSH, CMP, CBC, HIV12C ####[facility] [place], [place] [phone] ALP [Catalytic activity/Vol] 79 34-123 U/L Normal 0 06-28-2020 [facility] ([id number]) Comment: Performed By: #### TSH, CMP, CBC, HIV12C ####[facility] [place], [place] [phone] ALT [Catalytic activity/Vol] 16 7-38 U/L Normal 0 06-28-2020 [facility] ([id number]) Comment: Performed By: #### TSH, CMP, CBC, HIV12C ####[facility] [place], [place] [phone] Anion gap [Moles/Vol] 10 9-18 mmol/L Normal 06-28-20 20 [facility] ([id number]) Comment: Performed By: #### TSH, CMP, CBC, HIV12C ####[facility] [address] [place], [place] [phone] AST [Catalytic activity/Vol] 30 13-35 U/L Normal 0 06-28-2020 [facility] ([id number]) Comment: Performed By: #### TSH, CMP, CBC, HIV12C ####[facility] [address] [place], [place] [phone] Bilirubin [Mass/Vol] 0.5 0.2-1.3 mg/dL Normal 0 [facility] ([id number]) Comment: Performed By: #### TSH, CMP, CBC, HIV12C ####[facility] [address] [place], [place] [phone] Calcium [Mass/Vol] 9.0 8.5-10.2 mg/dL Normal 06-28-2020 [facility] ([id number]) Comment: Performed By: #### TSH, CMP, CBC, HIV12C ####[facility] [address] [place], [place] [phone] Chloride [Moles/Vol] 103 97-105 mmol/L Normal 0 [facility] ([id number]) Comment: Performed By: #### TSH, CMP, CBC, HIV12C ####[facility] [address] [place], [place] [phone] CO2 [Moles/Vol] 24 22-30 mmol/L Normal 06-28-2020 [facility] ([id number]) Comment: Performed By: #### TSH, CMP, CBC, HIV12C ####[facility] [address] [place], [place] [phone] Creatinine [Mass/Vol] 0.62 0.58-0.96 mg/dL Normal 06-28-20 20 [facility] ([id number]) Comment: Performed By: #### TSH, CMP, CBC, HIV12C ####[facility] [address] [place], [place] [phone] eGFR- Amer. >60 Normal 06-28-2020 [facility] ([id number]) Comment: Performed By: #### TSH, CMP, CBC, HIV12C ####[facility] [address] [place], [place] [phone] GFR/1.73 sq M predicted >60 mL/min/{1.73_m2} Normal 06-28-2020 [facility] among non-blacks [facility] [place] ([id number]) (S/P/Bld) [Vol rate/Area] Comment: Result Comment: eGFR (Estima jorge GFR) Units of measure: mL/min/1.73 meters squared eGFR is derived from the ree xpressed MDRD Study equation using the following parameters: serum creatinine, age, gender and race. The creatinine assay has been calibrated to be traceable to IDMS. An eGFR <60 mL/min/1.73m2 fo r >3 months is consistent with chronic kidney disease. Refer to KDOQI guidelines for clinical interpretation. In patients with unstable re nal function, e.g. those with acute kidney injury, the eGFR may not accurately reflect actual GFR. Performed By: #### TSH, CMP, CBC, HIV12C ####[facility] [address] [place], [place] [phone] Glucose [Mass/Vol] 62 74-99 mg/dL Low 06-28-2020 [facility] ([id number]) Comment: Result Comment: The [place] Diabetes Association (ADA) provides guidance for cutoff values for fasting glucose and random glucose. The ADA defines fasting as no caloric intake for at least 8 hours. Fas ting plasma glucose results between 100 to 125 mg/dL indicate increased risk for diabetes (prediabetes). Fasting plasma glucose resul ts greater than or equal to 126 mg/dL meet the criteria for diagnosis of diabetes. In the absence of unequivocal hyperglycemia, results should be confirmed by repeat testing. In a patient with classic s ymptoms of hyperglycemia or hyperglycemic crisis, random plasma glucose results greater than or equal to 200 mg/dL meet the criteria for diagnosis of diabetes. Reference: Standards of [facility] Care in Diabetes 2016, [place] [employer]. Diabetes Care. 2016.39(Suppl 1). Performed By: #### TSH, CMP, CBC, HIV12C ####[facility] [address] [place], [place] [phone] Potassium [Moles/Vol] 3.7 3.7-5.1 mmol/L Normal 06-28-20 [facility] ([id number]) Comment: Performed By: #### TSH, CMP, CBC, HIV12C ####[facility] [place], [place] [phone] Protein [Mass/Vol] 6.7 6.3-8.0 g/dL Normal 06-28-2020 [facility] ([id number]) Comment: Performed By: #### TSH, CMP, CBC, HIV12C ####[facility] [address] [place], [place] [phone] Sodium [Moles/Vol] 137 136-144 mmol/L Normal 06-28-2020 [facility] ([id number]) Comment: Performed By: #### TSH, CMP, CBC, HIV12C ####[facility] [address] [place], [place] [phone] Urea nitrogen [Mass/Vol] 11 7-21 mg/dL Normal 06-28 [facility] ([id number]) Comment: Performed By: #### TSH, CMP, CBC, HIV12C ####[facility] [address] [place], [place] [phone] cnov on 2020-06-28 CNOV Office Visit ([facility]) Normal 06-28-[address] [place] [address] Clinic JOSE BA ([id number]) 1985 [place] Date Time Provider Department ([id number]) 06/28/20 9:40 AM ELSA SMITH) [facility] During your visit today, we recorded the following informati on about you: Temperature Pulse Respiration Blood pressure 99.1 degrees 62/minute 16/minute 120/84 Weight 64.4 kg Elsa Smtih MD 06/28/2020 10:53 AM Signed Chief Complaint Patient presents with: Ear Problem: left ear still infected and draining and painful going on for past 2 months, pt states itching terrible everywhere nothing has helped. HPI Jose Ba is a 35 year old female who presents here tod ay for Above Complaints.. Patient with left ear infection which has been p resent for the last month and draining for the last 10 days. Evaluated in UC yesterday a nd was started on augmentin, which she has not picked up. Stating she has been on augmentin recently, but that was for dental infection not ear infect ion. Treated with ofloxacin ear drops for otit is externa about a month ago without improvement in her symptoms. Also complaining of generali zed itching without rash over the last 6 weeks. Has not changed detergents, crea ms, OTC medications. Treated with zyrtec previously without relief. Denies rash, illicit drug use. Admits to occ asional night sweats without fever or weight loss. Past medical history, appointments, medications, allergies r harshaliewed. Previous Medical History PAST MEDICAL HISTORY Diagnosis Date - Chronic otitis media after insertion of tympanic ventilati on tube, right Hearing loss, right - Eating disorder 07/22/2018 bulimia x 12 years. - History of mood disorder - Hypertension, essential 07/22/2018 - Substance use disorder 07/22/2018 Previous Surgical History PAST SURGICAL HISTORY Procedure Laterality Date - PAST SURGICAL HISTORY OF 09/30/2015 - PAST SURGICAL HISTORY OF 05/24/2009 Family History FAMILY HISTORY Adopted: Yes Patient Allergies ALLERGIES No Known Allergies Current Medications Current Outpatient Medications on File Prior to Visit Medication Sig - pantoprazole DR (PROTONIX) 40 mg tablet Take 1 tablet by mouth daily before breakfast. Take on empty stomach, 1/2 hr before meal. - LORazepam (ATIVAN) 0.5 mg Take 0.5 mg by mouth three times daily as needed. - amoxicillin-clavulanic acid (AUGMENTIN) 875-12 5 mg per tablet Take 1 tablet by mouth twice daily for 10 days. (Patient not taking: Rep orted on 06/28/2020 ) - cetirizine (ZYRTEC) 10 mg tablet Take 1 tablet by mouth once daily. (Patient not taking: Reported on 06/27/2020 ) - FLUoxetine (PROZAC) 20 mg capsule Take 1 capsule by mouth once daily. - ondansetron orally disintegrating (ZOFRAN ODT) 4 mg disi ntegrating tablet Take 1 tablet by mouth every 6 hours as needed for Nausea/Vo miting. - hydrOXYzine HCl (ATARAX) 2 5 mg tablet Take 1 tablet by mouth every 6 hours as needed for Itching/Rash. (Patient not taking: Reported on 06/27/2020 ) No current facility-administered medications on file prior t o visit. Social History Social History Tobacco Use - Smoking status: Current Every Day Smoker Packs/day: 1.00 Years: 19.00 Pack years: 19.00 Last attempt to quit: 11/25/2014 Years since quittin.5 - Smokeless tobacco: Never Used Substance Use Topics - Alcohol use: Yes Alcohol/week: 35.0 standard drinks Types: 14 Cans of Beer (12oz) per week Comment: h/o alcoholism - Drug use: Yes Types: Amphetamines, Crack Cocaine, Cocaine, Opiates Comment: none for 2 months. Review of Symptoms REVIEW OF SYSTEMS See HPI EXAM: BP 120/84 (BP Site: Left Arm, BP Position: Sitting, BP Cuff Size: Regular Adult) Pulse 62 Temp 37.3 ?C (99.1 ?F) Resp 16 Wt 64 .4 kg (142 lb) LMP 07/17/2018 (Approximate) BMI 27.73 kg/m? General Appearance: Well zuleyma earing, alert, in no acute distress, well-hydrated, well nourished. Scratching repeatedly during exam. Skin: Skin color, texture, turgor normal, no suspicious rash es or lesions. Ears: Right ear canal and TM normal. Lef t TM not visible due to canal swelling with copious purulent drainage. Health Maintenance List HEPATITIS C SCREENING due on 2004 HIV SCREENING due on 2004 BP CONTROLLED (<130/80) due on 2004 ONE PNEUMOVAX PRIOR TO AGE 65 due on 2005 PAP TESTING due on 2007 HPV TESTING due on 2016 INFLUENZA(1) due on 06/25/2020 DTAP,TDAP,TD(1 - Tdap) due on 06/28/2021 ANNUAL PCP TEAM CHRONIC DISEASE VISIT due on 04/23/2021 MENINGOCOCCAL CONJUGATE Completed ASSESSMENT/PLAN: 1. Acute otitis media, left - ICD9: 382.9, ICD10: H66. 92 (primary diagnosis) Start augmentin as prescribed. Add ciprodex drop s to be used BID as directed. Possible perforation of TM. If not improving wit h abx and drops will have her follow up with ENT for further evaluation and treatment. - CONSULT TO ENT - AMOXICILLIN 875 MG-POTASSIUM CLAVULANATE 125 MG TABLET - CIPROFLOXACIN 0.3 %-DEXAMETHASONE 0.1 % EAR DROPS,SUSPENSI ON 2. Pruritus - ICD9: 698.9, ICD10: L29.9 Start H1 and H2 gamaliel and will refer to ENT/behavioral health counselor for evaluation and testing. Obtain labs as ordered. Call if not improving symptoms in 2-3 days. - CONSULT TO ENT - LORATADINE 10 MG TABLET - FAMOTIDINE 20 MG TABLET - CBC - COMP METABOLIC PANEL - TSH BLD 3. Screening for HIV (human immunodeficiency virus) - ICD9: V73.89, ICD10: Z11.4 - CBC - COMP METABOLIC PANEL - TSH BLD - HIV 1 2 COMBO(AG/AB),WITH REFLEX TO DIFFERENTIATION Elsa Smith MD Referring Provider: SELF [200] Allergies As of Date: 06/28/2020 (No Known Allergies) Date Reviewed: 06/28/2020 Reviewed by: Modesta Mc (Chart Collector) SHIRA Nieto - Fully Assessed Reason for Visit: Ear Problem [38] Cmt: left ear still infected and drai blanche and painful going on for past 2 months, pt states itching terrible everywhere nothing has helped. Reason For Visit History Recorded Primary Visit Diagnosis:Acute otitis media, left [H66.92] Other Visit Diagnoses:Pruritus [L29.9] Screening for HIV (human immunodeficiency virus) [Z11.4] Order(s):CONSULT TO ENT [9008] Order #: [id number]: 1 FUT URE loratadine (CLARITIN) 10 mg tabletTake 1 tablet by mouth onc e daily.Disp: 30 tabletRfl: 0 famotidine (PEPCID) 20 mg tabletTake 1 tablet by mouth twice daily.Disp: 60 tabletRfl: 0 amoxicillin-clavulanic acid (AUGMENTIN) 875-125 mg per table tTake 1 tablet by mouth twice daily for 10 days.Disp: 20 tabletRfl: 0 ciprofloxacin-dexamethasone (CIPRODEX) 0.3-0.1 % otic suspen sionUse 4 Drops in the left ear twice daily for 7 days.Disp: 7.5 mLRfl : 0 CBC [SQCBC] Order #: [id number] FUTURE COMP METABOLIC PANEL [SQCMP] Order #: [id number] FUTURE TSH BLD [SQTSH] Order #: [id number] FUTURE HIV 1 2 COMBO(AG/AB),WITH REFLEX TO DIFFERENTIATION [SQHIV12 ] Order #: [id number] FUTURE Prescriptions as of 06/28/2020 Sig: PANTOPRAZOLE 40 MG TABLET,DEL* Take 1 tablet by mouth daily * LORATADINE 10 MG TABLET Take 1 tablet by mouth once d* FAMOTIDINE 20 MG TABLET Take 1 tablet by mouth twice * AMOXICILLIN 875 MG-POTASSIUM * Take 1 tablet by mouth twice * CIPROFLOXACIN 0.3 %-DEXAMETHA* Use 4 Drops in the left ear t * LORAZEPAM 0.5 MG TABLET Take 0.5 mg by mouth three ti* CETIRIZINE 10 MG TABLET Take 1 tablet by mouth once d* Patient not taking: Reported on 06/27/2020 FLUOXETINE 20 MG CAPSULE Take 1 capsule by mouth once * ONDANSETRON 4 MG DISINTEGRATI* Take 1 tablet by mouth every * HYDROXYZINE HCL 25 MG TABLET Take 1 tablet by mouth every * Patient not taking: Reported on 06/27/2020 Problem List As Of Date 06/28/2020 Noted Resolved Substance use disorder [F19.90] 07/22/2018 Hypertension, essential [I10] 07/22/2018 Eating disorder [F50.9] 07/22/2018 Perforation of tympanic membrane [H72.90] 09/14/2018 Prescriptions ordered this encounter Disp Refills Start End LORATADINE 10 MG TABLET 30 t* 0 06/28/2020 Route: ORAL Sig: Take 1 tablet by mouth once daily. FAMOTIDINE 20 MG TABLET 60 t* 0 06/28/2020 07/28/2020 Route: ORAL Sig: Take 1 tablet by mouth twice daily. AMOXICILLIN 875 MG-POTASSIUM CLAVULA* 20 t* 0 06/28/2020 Class: Med Update Route: ORAL Sig: Take 1 tablet by mouth twice daily for 10 days. CIPROFLOXACIN 0.3 %-DEXAMETHASONE 0.* 7.5 * 0 06/28/202008/2020 Route: LEFT EAR Sig: Use 4 Drops in the left ear twice daily for 7 days. Medications Discontinued During This Encounter Prescriptions - amoxicillin-clavulanic acid (AUGMENTIN ) 875-125 mg per tablet (Discontinued) Reported on 06/28/2020 Disposition: Return if symptoms worsen or fail to improve. Follow-up and Disposition History Recorded Encounter Status:Closed by ELSA SMITH MD on 06/28/20 cbc on 2020-06-28 Absolute nRBC <0.01 <0.01 Normal 06-28-2020 [facility] ([id number]) Comment: Performed By: #### TSH, CMP, CBC, HIV12C ####[facility] [address], [place] [phone] Erythrocyte distribution 12.9 11.5-15.0 % Normal 06-28 [facility] width (RBC) [Ratio] [place] ([id number]) Comment: Performed By: #### TSH, CMP, CBC, HIV12C ####[facility] [address] [place], [place] [phone] Hematocrit (Bld) [Volume 40.6 36.0-46.0 % Normal 06-28 [facility] fraction] [place] ([id number]) Comment: Performed By: #### TSH, CMP, CBC, HIV12C ####[facility] [address] [place], [place] [phone] Hemoglobin (Bld) 13.4 11.5-15.5 g/dL Normal 06-28-2020 [facility] [Mass/Vol] [place] ([id number]) Comment: Performed By: #### TSH, CMP, CBC, HIV12C ####[facility] [address] [place], [place] [phone] MCH (RBC) [Entitic mass] 33.3 26.0-34.0 pG Normal 06-28 [facility] ([id number]) Comment: Performed By: #### TSH, CMP, CBC, HIV12C ####[facility] [address] [place], [place] [phone] MCHC (RBC) [Mass/Vol] 33.0 30.5-36.0 g/dL Normal 06-28-20 20 [facility] ([id number]) Comment: Performed By: #### TSH, CMP, CBC, HIV12C ####[place] [address] [place], [place] [phone] MCV (RBC) [Entitic vol] 101.0 80.0-100.0 fL High 06-28 [facility] ([id number]) Comment: Performed By: #### TSH, CMP, CBC, HIV12C ####[facility] [place], [place] [phone] Platelet mean volume 11.7 9.0-12.7 fL Normal 0 [facility] (Bld) [Entitic vol] [place] ([address]) Comment: Performed By: #### TSH, CMP, CBC, HIV12C ####[facility] [place], [place] [phone] Platelets (Bld) [#/Vol] 267 150-400 k/uL Normal 2019 [facility] ([id number]) Comment: Performed By: #### TSH, CMP, CBC, HIV12C ####[facility] [address] [place], [place] [phone] RBC (Bld) [#/Vol] 4.02 3.90-5.20 m/uL Normal 06-28-2020 [facility] ([id number]) Comment: Performed By: #### TSH, CMP, CBC, HIV12C ####[facility] [address] [place], [place] [phone] WBC (Bld) [#/Vol] 6.40 3.70-11.00 k/uL Normal 06-28-2020 [facility] ([id number]) Comment: Performed By: #### TSH, CMP, CBC, HIV12C ####[facility] [address] [place], [place] [phone] progress on 2020-06 PROGRESS HNO ID: [id number] Normal 06-27-2020 [facility] Author: Larry Anne) [facility] ([id number]) Service: ? Author Type: Nurse Practitioner Type: Progress Notes Filed: 06/27/2020 3:29 PM Note Text: Visit Date: June 27, 2020 Patient Name: Ms.Marissa Mohini Ba Date of : 1985 MRN/E #: [id number] Chief Complaint Patient presents with: Recheck: visit 06/01/20- LEFT ear fluid in ear ongoing with constant itching all over History of present illness Jose Ba is a 35 year old female. Reports that she has itching with no rash for the past 4 mon ths. Has been previously treated with Permethrin and Prednisone with no re lief of symptoms. States rash is affecting her job and she scratches all day long. Denies having any scratching when she sleeps and denies ever having any rash. Also has complaints of left ear pain and feels like it is draining during the night when she lays on her side. Ear pain has bee n present for 3 days. Denies having any fevers, chills, or difficulty hear ing. PAIN EVALUATION No data found in the last 1 encounters. ALLERGIES No Known Allergies PAST MEDICAL HISTORY Diagnosis Date - Chronic otitis media after insertion of tympanic ventilati on tube, right Hearing loss, right - Eating disorder 07/22/2018 bulimia x 12 years. - History of mood disorder - Hypertension, essential 07/22/2018 - Substance use disorder 07/22/2018 PAST SURGICAL HISTORY Procedure Laterality Date - PAST SURGICAL HISTORY OF 09/30/2015 - PAST SURGICAL HISTORY OF 05/24/2009 Social History Tobacco Use - Smoking status: Current Every Day Smoker Packs/day: 1.00 Years: 19.00 Pack years: 19.00 Last attempt to quit: 11/25/2014 Years since quittin.5 - Smokeless tobacco: Never Used Substance Use Topics - Alcohol use: Yes Alcohol/week: 35.0 standard drinks Types: 14 Cans of Beer (12oz) per week Comment: h/o alcoholism - Drug use: Yes Types: Amphetamines, Crack Cocaine, Cocaine, Opiates Comment: none for 2 months. FAMILY HISTORY Adopted: Yes Review of Systems Constitutional: Negative for chills, fever and malaise/fatig ue. HENT: Positive for ear discharge and ear pain. Negative for congestion and sore throat. Skin: Positive for itching. Negative for rash. Physical Exam Constitutional: She is well-developed, well-nourished, and i n no distress. HENT: Right Ear: Hearing, tympanic membrane, external ear and ear canal normal. Left Ear: Hearing normal. There is tenderness. No drainage o r swelling. Ears: Pulmonary/Chest: Effort normal. Skin: Skin is warm and dry. No rash noted. No erythema. Vitals reviewed. BP 124/88 Pulse 103 Temp (Src) 98.6 (Left Tympanic) Re sp 16 Wt 137 lb (62.1kg) LMP 07/17/2018 A/P 1. Pruritus - CONSULT TO DERMATOLOGY 2. Acute otitis media, left - amoxicillin-clavulanic acid (AUGMENTIN) 875-125 mg per tab let; Take 1 tablet by mouth twice daily for 10 days. Dispense: 20 tablet ; Refill: 0 Larry Aponte APRN.RICARDO Discussed above plan with patient. Pt agreeable with above michela fuller. yuliet on 2020-06-27 CNOV Office Visit ([facility]) Normal 06-27-20 20 [place] [facility] JOSE BA ([id number]) 1985 F [place] Date Time Provider Department ([id number]) 06/27/20 2:15 PM LARRY APONTE (RICARDO) [facility] During your visit today, we recorded the following informati on about you: Temperature Pulse Respiration Blood pressure 98.6 degrees 103/minute 16/minute 124/88 Weight 62.1 kg Larry Aponte APRN.CNP 06/27/2020 2:53 PM Signed -education material provided -use medication as prescribed -f/u if no better in 3-5 days -discussed proper ear hygiene -discussed prevention Larry Aponte APRN.CNP 06/27/2020 3:29 PM Signed Visit Date: June 27, 2020 Patient Name: Ms.Marissa Mohini Ba Date of : 1985 MRN/E #: [id number] Chief Complaint Patient presents with: Recheck: visit 06/01/20- LEFT ear fluid in ear ongoing with constant itching all over History of present illness Jose Ba is a 35 year old female. Reports that she has itching with no rash for the past 4 mon ths. Has been previously treated with Permethrin and Prednison e with no relief of symptoms. States rash is affecting her job and she scratches all day long. Denies having any scratching when she sleeps and denies ever having any ra sh. Also has complaints of left ear pain and feels like it is draining during the night when she lays on her side. Ear pain has been present for 3 days. Denies having any fevers, chills, or difficulty hearing. PAIN EVALUATION No data found in the last 1 encounters. ALLERGIES No Known Allergies PAST MEDICAL HISTORY Diagnosis Date - Chronic otitis media after insertion of tympanic ventilati on tube, right Hearing loss, right - Eating disorder 07/22/2018 bulimia x 12 years. - History of mood disorder - Hypertension, essential 07/22/2018 - Substance use disorder 07/22/2018 PAST SURGICAL HISTORY Procedure Laterality Date - PAST SURGICAL HISTORY OF 09/30/2015 - PAST SURGICAL HISTORY OF 05/24/2009 Social History Tobacco Use - Smoking status: Current Every Day Smoker Packs/day: 1.00 Years: 19.00 Pack years: 19.00 Last attempt to quit: 11/25/2014 Years since quittin.5 - Smokeless tobacco: Never Used Substance Use Topics - Alcohol use: Yes Alcohol/week: 35.0 standard drinks Types: 14 Cans of Beer (12oz) per week Comment: h/o alcoholism - Drug use: Yes Types: Amphetamines, Crack Cocaine, Cocaine, Opiates Comment: none for 2 months. FAMILY HISTORY Adopted: Yes Review of Systems Constitutional: Negative for chills, fever and malaise/fatig ue. HENT: Positive for ear disch arge and ear pain. Negative for congestion and sore throat. Skin: Positive for itching. Negative for rash. Physical Exam Constitutional: She is well-developed, well-nourished, and i n no distress. HENT: Right Ear: Hearing, tympanic membrane, external ear and ear canal normal. Left Ear: Hearing normal. There is tenderness. No drainage o r swelling. Ears: Pulmonary/Chest: Effort normal. Skin: Skin is warm and dry. No rash noted. No erythema. Vitals reviewed. BP 124/88 Pulse 103 Temp (Src) 98.6 (Left Ty mpanic) Resp 16 Wt 137 lb (62.1kg) LMP 07/17/2018 A/P 1. Pruritus - CONSULT TO DERMATOLOGY 2. Acute otitis media, left - amoxicillin-clavulanic acid (AUGMENTIN ) 875-125 mg per tablet; Take 1 tablet by mouth twice daily for 10 days. Dispense: 20 tablet; Refil l: 0 Larry Aponte APRN.CNP Discussed above plan with patient. Pt agreeable with above p jonny. Referring Provider: SELF [200] Allergies As of Date: 06/27/2020 (No Known Allergies) Date Reviewed: 06/27/2020 Reviewed by: Darron Nguyen Ma - Fully Assessed Reason for Visit: Recheck [92] Cmt: visit 06/01/20- LEFT ear fluid in ear jony oing with constant itching all over Reason For Visit History Recorded Primary Visit Diagnosis:Pruritus [L29.9] Other Visit Diagnosis:Acute otitis media, left [H66.92] Order(s):CONSULT TO DERMATOLOGY [9006] Order #: [id number] y: 1 FUTURE amoxicillin-clavulanic acid (AUGMENTIN) 875-125 mg per table tTake 1 tablet by mouth twice daily for 10 days.Disp: 20 tabletRfl: 0 Prescriptions as of 06/27/2020 Sig: FLUOXETINE 20 MG CAPSULE Take 1 capsule by mouth once * ONDANSETRON 4 MG DISINTEGRATI* Take 1 tablet by mouth every * PANTOPRAZOLE 40 MG TABLET,DEL* Take 1 tablet by mouth daily * LORAZEPAM 0.5 MG TABLET Take 0.5 mg by mouth three ti* AMOXICILLIN 875 MG-POTASSIUM * Take 1 tablet by mouth twice * CETIRIZINE 10 MG TABLET Take 1 tablet by mouth once d* Patient not taking: Reported on 06/27/2020 HYDROXYZINE HCL 25 MG TABLET Take 1 tablet by mouth every * Patient not taking: Reported on 06/27/2020 Medication notes this encounter ONDANSETRON 4 MG DISINTEGRATING TABLET >> Darron Nguyen Ma 06/27/2020 2:22 PM >> DARRON NGUYEN MA Mackenzie Jun 27, 2020 2:22 PM PRN LORAZEPAM 0.5 MG TABLET >> Darron Nguyen Ma 06/27/2020 2:23 PM >> DARRON NGUYEN MA Mackenzie Jun 27, 2020 2:23 PM Therapy complete. Problem List As Of Date 06/27/2020 Noted Resolved Substance use disorder [F19.90] 07/22/2018 Hypertension, essential [I10] 07/22/2018 Eating disorder [F50.9] 07/22/2018 Perforation of tympanic membrane [H72.90] 09/14/2018 Other instructions from your clinician: -education material provided -use medication as prescribed -f/u if no better in 3-5 days -discussed proper ear hygiene -discussed prevention Prescriptions ordered this encounter Disp Refills Start End AMOXICILLIN 875 MG-POTASSIUM CLAVULA* 20 t* 0 06/27/2020 Route: ORAL Sig: Take 1 tablet by mouth twice daily for 10 days. Encounter Status:Closed by LARRY APONTE on 06/27/20 progress on 2020-05 PROGRESS HNO ID: [id number] Normal 06-01-2020 [facility] Author: Darron Desai (Trash Hauler Professor Of Religious Studies) [facility] Corbett ([id number]) Service: ? Author Type: Nurse Practitioner Type: Progress Notes Filed: 06/01/2020 2:32 PM Note Text: Subjective HPI Jose Ba is a 35 year old female who presents with lef t ear pain for the last 4 days and a rash for the last 3 weeks. Left ear clear yellow drainage. Swelling. Hearing decreased. Pain to touch. History of chronic OM and tympanic perforation after tubes. No preceding URI symptoms. Denies fever or chills. Rash has been ongoing for several weeks. Itching all over he r body. States once she starts itching it gets worse. Denies worsening at n ight or with heat. No one in household has a similar rash. No rash like t his before. Given Zyrtec and triamcinolone cream at last visit, minimal improvement per patient. Did not show to follow up with Dr. Dubois . Also mentions chronic, unexplained bruising of her BL legs. Called off work today so she will need a work note. Review of Systems Constitutional: Negative for chills, fever and malaise/fatig ue. HENT: Positive for ear discharge, ear pain and hearing loss. Negative for congestion. Respiratory: Negative for cough. Gastrointestinal: Negative for nausea and vomiting. Skin: Positive for itching and rash. BP 122/68 Pulse 96 Temp 36.8 ?C (98.3 ?F) (Tympanic) R pepe 16 LMP 07/17/2018 (Approximate) SpO2 98% PAST MEDICAL HISTORY Diagnosis Date - Chronic otitis media after insertion of tympanic ventilati on tube, right Hearing loss, right - Eating disorder 07/22/2018 bulimia x 12 years. - History of mood disorder - Hypertension, essential 07/22/2018 - Substance use disorder 07/22/2018 PAST SURGICAL HISTORY Procedure Laterality Date - PAST SURGICAL HISTORY OF 09/30/2015 - PAST SURGICAL HISTORY OF 05/24/2009 ALLERGIES Patient has no known allergies. MEDICATIONS cetirizine (ZYRTEC) 10 mg tablet Take 1 tablet by mouth once daily. FLUoxetine (PROZAC) 20 mg capsule Take 1 capsule by mouth on ce daily. ondansetron orally disintegrating (ZOFRAN ODT) 4 mg disinteg rating tablet Take 1 tablet by mouth every 6 hours as needed for Nausea/Vo miting. hydrOXYzine HCl (ATARAX) 25 mg tablet Take 1 tablet by mouth every 6 hours as needed for Itching/Rash. pantoprazole DR (PROTONIX) 40 mg tablet Take 1 tablet by lucina th daily before breakfast. Take on empty stomach, 1/2 hr before meal. FAMILY HISTORY Adopted: Yes Social History Tobacco Use - Smoking status: Current Every Day Smoker Packs/day: 1.00 Years: 19.00 Pack years: 19.00 Last attempt to quit: 11/25/2014 Years since quittin.5 - Smokeless tobacco: Never Used Substance Use Topics - Alcohol use: Yes Alcohol/week: 35.0 standard drinks Types: 14 Cans of Beer (12oz) per week Comment: h/o alcoholism - Drug use: Yes Types: Amphetamines, Crack Cocaine, Cocaine, Opiates Comment: none for 2 months. Objective Physical Exam Constitutional: She is oriented to person, place, and time a nd well-developed, well-nourished, and in no distress. HENT: Head: Normocephalic and atraumatic. Eyes: Conjunctivae are normal. Pulmonary/Chest: Effort normal. No respiratory distress. Neurological: She is alert and oriented to person, place, an d time. No cranial nerve deficit. Gait normal. Coordination normal. Skin: Scattered scabbed lesions of the fingers, arms, chest, abdom en, and legs. No signs of burrowing. No drainage or crusting. No vesicles or pustules. More significant and wide spread than last visit. Psychiatric: Mood, memory, affect and judgment normal. ASSESSMENT/PLAN: 1. Acute otitis externa of left ear, unspecified type - ICD9 : 380.10, ICD10: H60.502 (primary diagnosis) - keep ear clean and dry - OFLOXACIN 0.3 % EAR DROPS 2. Impacted cerumen of left ear - ICD9: 380.4, ICD10: H61.22 - removed with curette without complication 3. Itching - ICD9: 698.9, ICD10: L29.9 - unclear etiology- will cover for inflammatory response vs scabies - needs follow up with PCP, consider derm consult if needed - PERMETHRIN 5 % TOPICAL CREAM - PREDNISONE 20 MG TABLET Follow up with PCP regarding unexplained bruising of legs. Michela maria declined making a follow up while here today. Will call to katherin rosen. I informed the patient to avoid all NSAID's while on steroid treatment, including: Aleve, Motrin, Advil, or ibuprofen or naproxen. M ay take Tylenol or acetaminophen as needed for pain relief. All of the above discussed with the patient in detail. Ellen jeter is in agreement with the above plan. Treatment and plan of care di scussed including course of treatment, possible medication side effe cts, and what to watch for in regards to worsening signs and symptoms. All questions addressed. Darron Mcqueen APRN.RICARDO horvath on 2020-06-01 CNOV Office Visit ([facility]) Normal 06-01-20 [place] [facility] JOSE BA ([id number]) 1985 [facility] Date Time Provider Department ([id number]) 06/01/20 2:00 PM DARRON MCQUEEN (STUDY ABROAD COORDINATOR, COMBINATION PRESSER)WSTR During your visit today, we recorded the following informati on about you: Temperature Pulse Respiration Blood pressure 98.3 degrees 96/minute 16/minute 122/68 Darron Mcqueen APRN.COMBINATION PRESSER 06/01/2020 2:32 PM Signed Subjective HPI Jose Ba is a 35 year old female w ho presents with left ear pain for the last 4 days and a rash for the last 3 weeks. Left ear clear yellow drainage. Swelling. Hearing decrease d. Pain to touch. History of chronic OM and tympanic perforation after t ubes. No preceding URI symptoms. Denies fever or chills. Rash has been ongoing for se veral weeks. Itching all over her body. States once she starts itching it gets worse. Denies worsening at night or with heat. No one in household has a simil ar rash. No rash like this before. Given Zyrtec and triamcinolone cream at last visit, minimal improvement per patient. Did not show to follow up with Dr. Dubois 05/24. Also mentions chronic, unexplained bruising of her BL legs. Called off work today so she will need a work note. Review of Systems Constitutional: Negative for chills, fever and malaise/fatig ue. HENT: Positive for ear discharge, ear pain and hearing loss. Negative for congestion. Respiratory: Negative for cough. Gastrointestinal: Negative for nausea and vomiting. Skin: Positive for itching and rash. BP 122/68 Pulse 96 Temp 36.8 ?C (98.3 ?F) (Tympanic) R pepe 16 LMP 07/17/2018 (Approximate) SpO2 98% PAST MEDICAL HISTORY Diagnosis Date - Chronic otitis media after insertion of tympanic ventilati on tube, right Hearing loss, right - Eating disorder 07/22/2018 bulimia x 12 years. - History of mood disorder - Hypertension, essential 07/22/2018 - Substance use disorder 07/22/2018 PAST SURGICAL HISTORY Procedure Laterality Date - PAST SURGICAL HISTORY OF 09/30/2015 - PAST SURGICAL HISTORY OF 05/24/2009 ALLERGIES Patient has no known allergies. MEDICATIONS cetirizine (ZYRTEC) 10 mg tablet Take 1 tablet by mouth once daily. FLUoxetine (PROZAC) 20 mg capsule Take 1 capsule by mouth on ce daily. ondansetron orally disintegrating (ZOFRA N ODT) 4 mg disintegrating tablet Take 1 tablet by mouth every 6 hours as needed for Nausea/Vomitin g. hydrOXYzine HCl (ATARAX) 25 mg tablet Take 1 tab let by mouth every 6 hours as needed for Itching/Rash. pantoprazole DR (PROTONIX) 40 mg tablet Take 1 tablet by m outh daily before breakfast. Take on empty stomach, 1/2 hr before meal. FAMILY HISTORY Adopted: Yes Social History Tobacco Use - Smoking status: Current Every Day Smoker Packs/day: 1.00 Years: 19.00 Pack years: 19.00 Last attempt to quit: 11/25/2014 Years since quittin.5 - Smokeless tobacco: Never Used Substance Use Topics - Alcohol use: Yes Alcohol/week: 35.0 standard drinks Types: 14 Cans of Beer (12oz) per week Comment: h/o alcoholism - Drug use: Yes Types: Amphetamines, Crack Cocaine, Cocaine, Opiates Comment: none for 2 months. Objective Physical Exam Constitutional: She is oriented to perso n, place, and time and well-developed, well-nourished, and in no distress. HENT: Head: Normocephalic and atraumatic. Eyes: Conjunctivae are normal. Pulmonary/Chest: Effort normal. No respiratory distress. Neurological: She is alert and oriented to person, place, and time. No cranial nerve deficit. Gait normal. Coordination normal. Skin: Scattered scabbed lesions of the fingers, arms, chest, abdomen, and legs. No signs of burrowing. No drainage or crusting. No vesicles or pustules. More significant and wide spread than last visit. Psychiatric: Mood, memory, affect and judgment normal. ASSESSMENT/PLAN: 1. Acute otitis externa of left ear, unspecified type - ICD9: 380.10, ICD10: H60.502 (primary diagnosis) - keep ear clean and dry - OFLOXACIN 0.3 % EAR DROPS 2. Impacted cerumen of left ear - ICD9: 380.4, ICD10: H61.22 - removed with curette without complication 3. Itching - ICD9: 698.9, ICD10: L29.9 - unclear etiology- will cover for inflammatory response vs scabies - needs follow up with PCP, consider derm consult if needed - PERMETHRIN 5 % TOPICAL CREAM - PREDNISONE 20 MG TABLET Follow up with PCP regarding unexplained bruising of legs. Patient declined making a follow up while here today. Will call to schedule. I informed the patient to avoid all NSAID's while on steroid treatment, including: Aleve, Motrin, Advil, or ibup rofen or naproxen. May take Tylenol or acetaminophen as needed for pain relief. All of the above discussed with the kaelyn ent in detail. Patient is in agreement with the above plan. Treatment and plan of care discussed including course of treatment, possible medication side effects, and what to watch for in regards to worsening signs and symptoms. All questions addressed. Darron Mcqueen APRN.COMBINATION PRESSER Referring Provider: SELF [[id number]] Allergies As of Date: 06/01/2020 (No Known Allergies) Date Reviewed: 06/01/2020 Reviewed by: Darron Desai (Alayna Professor Of Religious Studies) Richar - Fully Assessed Reason for Visit: Ear Pain [817] Cmt: x 4 days, rash and itching x 3 weeks Primary Visit Diagnosis:Acute otitis externa of left ear, un specified type [H60.502] Other Visit Diagnoses:Impacted cerumen of left ear [H61.22] Itching [L29.9] Order(s):permethrin (ELIMITE) 5 % creamApply 1 application to affected area one time only for 1 dose. massage into skin from neck to fee t, leave on 8-12hrs, wash off; Info: repeat 2wks if live mites persis t.Disp: 60 gRfl: 1 ofloxacin (FLOXIN) 0.3 % otic solutionUse 5 Drops in the lef t ear once daily for 10 days.Disp: 1 BottleRfl: 0 predniSONE (DELTASONE) 20 mg tabletTake 2 tablets by mouth o nce daily for 5 days. Take daily with food.Disp: 10 tabletRfl: 0 Prescriptions as of 06/01/2020 Sig: CETIRIZINE 10 MG TABLET Take 1 tablet by mouth once d* FLUOXETINE 20 MG CAPSULE Take 1 capsule by mouth once * ONDANSETRON 4 MG DISINTEGRATI* Take 1 tablet by mouth every * HYDROXYZINE HCL 25 MG TABLET Take 1 tablet by mouth every * PANTOPRAZOLE 40 MG TABLET,DEL* Take 1 tablet by mouth daily * PERMETHRIN 5 % TOPICAL CREAM Apply 1 application to affect* OFLOXACIN 0.3 % EAR DROPS Use 5 Drops in the left ear o* PREDNISONE 20 MG TABLET Take 2 tablets by mouth once * Problem List As Of Date 06/01/2020 Noted Resolved Substance use disorder [F19.90] 07/22/2018 Hypertension, essential [I10] 07/22/2018 Eating disorder [F50.9] 07/22/2018 Perforation of tympanic membrane [H72.90] 09/14/2018 Prescriptions ordered this encounter Disp Refills Start End PERMETHRIN 5 % TOPICAL CREAM 60 g 1 06/01/2020 06/01/2020 Route: TOPICAL Sig: Apply 1 application to affected area one time only fo r 1 dose. massage into skin from neck to feet, leave on 8-12hrs, wash off; Inf o: repeat 2wks if live mites persist. OFLOXACIN 0.3 % EAR DROPS 1 Tobias* 0 06/01/2020 06/11/2020 Route: LEFT EAR Sig: Use 5 Drops in the left ear once daily for 10 days. PREDNISONE 20 MG TABLET 10 t* 0 06/01/2020 06/06/2020 Route: ORAL Sig: Take 2 tablets by mouth once daily for 5 days. Take sonal ly with food. Letter Text Encounter Status:Closed by RICHAR PERLA.DARRON ERIC on cnco on 2020-05-24 CNCO Letter Text Normal 05-24-2020 [facility] ([id number]) progress on 2020-04 PROGRESS HNO ID: [id number] Normal 05-15-2020 [facility] Author: Darron Desai (Alayna Eric) Richar Corbett ([id number]) Service: ? Author Type: Nurse Practitioner Type: Progress Notes Filed: 05/15/2020 6:25 AM Note Text: Subjective HPI Jose Ba is a 34 year old female who presents with lef t upper and lower dental pain for the last 2 weeks. Significant, unaddre ssed dental decay. She was seen here last month for the left upper denta l pain. States the antibiotic cleared the symptoms completley, but as expec jorge, her issues have returned. Has not yet secured a dentist appointm ent because she is afraid of the dentist. States she needs to be put to sleep for any dental procedures, but cannot find a dentist to do this for her. She denies any fever, chills, or malaise. No OTC medications. She also mentions a rash of her arms and upper back that is coming in going. Says she can watch welts and lines appears on her ski n that eventually become very itchy. Review of Systems Constitutional: Negative for chills, fever and malaise/fatig ue. HENT: Negative for congestion. Respiratory: Negative for cough. Skin: Positive for itching and rash. BP 122/86 Pulse 92 Temp 36.8 ?C (98.2 ?F) (Tympanic) R pepe 16 LMP 07/17/2018 (Approximate) SpO2 97% PAST MEDICAL HISTORY Diagnosis Date - Chronic otitis media after insertion of tympanic ventilati on tube, right Hearing loss, right - Eating disorder 07/22/2018 bulimia x 12 years. - History of mood disorder - Hypertension, essential 07/22/2018 - Substance use disorder 07/22/2018 PAST SURGICAL HISTORY Procedure Laterality Date - PAST SURGICAL HISTORY OF 09/30/2015 - PAST SURGICAL HISTORY OF 05/24/2009 ALLERGIES Patient has no known allergies. MEDICATIONS FLUoxetine (PROZAC) 20 mg capsule Take 1 capsule by mouth on ce daily. ondansetron orally disintegrating (ZOFRAN ODT) 4 mg disinteg rating tablet Take 1 tablet by mouth every 6 hours as needed for Nausea/Vo miting. hydrOXYzine HCl (ATARAX) 25 mg tablet Take 1 tablet by mouth every 6 hours as needed for Itching/Rash. pantoprazole DR (PROTONIX) 40 mg tablet Take 1 tablet by lucina th daily before breakfast. Take on empty stomach, 1/2 hr before meal. amoxicillin-clavulanic acid (AUGMENTIN) 875-125 mg per table t Take 1 tablet by mouth twice daily for 10 days. Chlorhexidine Gluconate (PERIDEX) 0.12 % solution Take 15 mL by mouth twice daily for 10 days. cetirizine (ZYRTEC) 10 mg tablet Take 1 tablet by mouth once daily. triamcinolone acetonide (KENALOG) 0.1 % cream Apply 1 applic ation to affected area twice daily for 10 days. Apply to affected are a. Do not use on face. FAMILY HISTORY Adopted: Yes Social History Tobacco Use - Smoking status: Current Every Day Smoker Packs/day: 1.00 Years: 19.00 Pack years: 19.00 Last attempt to quit: 11/25/2014 Years since quittin.4 - Smokeless tobacco: Never Used Substance Use Topics - Alcohol use: Yes Alcohol/week: 35.0 standard drinks Types: 14 Cans of Beer (12oz) per week Comment: h/o alcoholism - Drug use: Yes Types: Amphetamines, Crack Cocaine, Cocaine, Opiates Comment: none for 2 months. Objective Physical Exam Constitutional: She is oriented to person, place, and time a nd well-developed, well-nourished, and in no distress. HENT: Head: Normocephalic and atraumatic. Mouth/Throat: Dental caries present. No dental abscesses or uvula swelling. No posterior oropharyngeal edema or posterior orop haryngeal erythema. Erythema at gum line. Apparent decay and caries of left uppe r and lower dentition. Eyes: Conjunctivae are normal. Cardiovascular: Normal rate, regular rhythm, normal heart so unds and intact distal pulses. Exam reveals no gallop and no friction rub. No murmur heard. Pulmonary/Chest: Effort normal and breath sounds normal. No respiratory distress. She has no wheezes. She has no rales. She exhibits no tenderness. Musculoskeletal: General: No edema. Lymphadenopathy: She has no cervical adenopathy. Neurological: She is alert and oriented to person, place, an d time. Gait normal. Skin: Skin is warm and dry. Rash (erythematous patches of dr y skin of left ventral forearm with scratch fox, similar appearance on ne ck) noted. She is not diaphoretic. ASSESSMENT/PLAN: 1. Dental infection - ICD9: 522.4, ICD10: K04.7 (primary michaela gnosis) - AMOXICILLIN 875 MG-POTASSIUM CLAVULANATE 125 MG TABLET- in structed to eat yogurt or take a daily probiotic while on antibiotic the rapy - CHLORHEXIDINE GLUCONATE 0.12 % MOUTHWASH - needs to follow up with dentist ELIZABETH as her symptoms with persist/return without addressing the underlying dental decay 2. Rash - ICD9: 782.1, ICD10: R21 - eczema ? - CETIRIZINE 10 MG TABLET - TRIAMCINOLONE ACETONIDE 0.1 % TOPICAL CREAM - follow up with PCP should symptoms persist All of the above discussed with the patient in detail. Ellen jeter is in agreement with the above plan. Treatment and plan of care di scussed including course of treatment, possible medication side effe cts, and what to watch for in regards to worsening signs and symptoms. All questions addressed. Darron Mcqueen APRN.RICARDO horvath on 2020-05-14 CNOV Office Visit ([facility]WSTR) Normal 05-14-20 [place] JOSE Mcfarland ([id number]) 1985 [place] Date Time Provider Department ([id number]) 05/14/20 8:45 PM DARRON MCQUEEN (STUDY ABROAD COORDINATOR, COMBINATION PRESSER)UCWSTR During your visit today, we recorded the following informati on about you: Temperature Pulse Respiration Blood pressure 98.2 degrees 92/minute 16/minute 122/86 Darron Mcqueen APRN.RICARDO 05/15/2020 6:25 AM Signed Subjective HPI Jose Ba is a 34 year old female who prese nts with left upper and lower dental pain for the last 2 weeks. Significant, unaddre ssed dental decay. She was seen here last month for the left up per dental pain. States the antibiotic cleared the symptoms complet ester, but as expected, her issues have returned. Has not yet secured a dentist appointment because she is afrai d of the dentist. States she needs to be put to sleep for any dental procedures, but cannot find a dentist to do this for her. She denies any fever, chills, or malaise. No OTC medications. She also mentions a rash of her arms and upper back th at is coming in going. Says she can watch welts and lines appears on he r skin that eventually become very itchy. Review of Systems Constitutional: Negative for chills, fever and malaise/fatig ue. HENT: Negative for congestion. Respiratory: Negative for cough. Skin: Positive for itching and rash. BP 122/86 Pulse 92 Temp 36.8 ?C (98.2 ?F) (Tympanic) R pepe 16 LMP 07/17/2018 (Approximate) SpO2 97% PAST MEDICAL HISTORY Diagnosis Date - Chronic otitis media after insertion of tympanic ventilati on tube, right Hearing loss, right - Eating disorder 07/22/2018 bulimia x 12 years. - History of mood disorder - Hypertension, essential 07/22/2018 - Substance use disorder 07/22/2018 PAST SURGICAL HISTORY Procedure Laterality Date - PAST SURGICAL HISTORY OF 09/30/2015 - PAST SURGICAL HISTORY OF 05/24/2009 ALLERGIES Patient has no known allergies. MEDICATIONS FLUoxetine (PROZAC) 20 mg capsule Take 1 capsule by mouth on ce daily. ondansetron orally disintegrating (ZOFRA N ODT) 4 mg disintegrating tablet Take 1 tablet by mouth every 6 hours as needed for Nausea/Vomitin g. hydrOXYzine HCl (ATARAX) 25 mg tablet Take 1 tab let by mouth every 6 hours as needed for Itching/Rash. pantoprazole DR (PROTONIX) 40 mg tablet Take 1 tablet by m outh daily before breakfast. Take on empty stomach, 1/2 hr before meal. amoxicillin-clavulanic acid (AUGMENTIN) 875-125 mg per tablet Take 1 tablet by mouth twice daily for 10 days. Chlorhexidine Gluconate (PERIDEX) 0.12 % solution Take 15 mL by mouth twice daily for 10 days. cetirizine (ZYRTEC) 10 mg tablet Take 1 tablet by mouth once daily. triamcinolone acetonide (KENALOG) 0.1 % cream Ap ply 1 application to affected area twice daily for 10 days. Apply to affected area. Do not use on face. FAMILY HISTORY Adopted: Yes Social History Tobacco Use - Smoking status: Current Every Day Smoker Packs/day: 1.00 Years: 19.00 Pack years: 19.00 Last attempt to quit: 11/25/2014 Years since quittin.4 - Smokeless tobacco: Never Used Substance Use Topics - Alcohol use: Yes Alcohol/week: 35.0 standard drinks Types: 14 Cans of Beer (12oz) per week Comment: h/o alcoholism - Drug use: Yes Types: Amphetamines, Crack Cocaine, Cocaine, Opiates Comment: none for 2 months. Objective Physical Exam Constitutional: She is oriented to perso n, place, and time and well-developed, well-nourished, and in no distress. HENT: Head: Normocephalic and atraumatic. Mouth/Throat: Dental caries present. No dental abscesses or uvula swelling. No posterior oropharyngeal edema or posterior oropharyngeal laya thema. Erythema at gum line. Apparent decay and caries of left uppe r and lower dentition. Eyes: Conjunctivae are normal. Cardiovascular: Normal rate, regular rhythm, normal heart sounds and intact distal pulses. Exam reveals no gallop and no friction rub. No murmur heard. Pulmonary/Chest: Effort normal and breath sounds normal. No respiratory distress. She has no wheezes. She has no rales. She exhibi ts no tenderness. Musculoskeletal: General: No edema. Lymphadenopathy: She has no cervical adenopathy. Neurological: She is alert and oriented to person, place, an d time. Gait normal. Skin: Skin is warm and dry. Rash (erythematous patches of dr y skin of left ventral forearm with scratch fox, similar appe arance on neck) noted. She is not diaphoretic. ASSESSMENT/PLAN: 1. Dental infection - ICD9: 522.4, ICD10: K04.7 (primary michaela gnosis) - AMOXICILLIN 875 MG-POTASSIUM CLAVULANATE 125 MG TABLET- instructed to eat yogurt or take a daily probiotic while on antibiotic therapy - CHLORHEXIDINE GLUCONATE 0.12 % MOUTHWASH - needs to follow up with dentist ELIZABETH as her symptoms with persist/return without addressing the underlying dental decay 2. Rash - ICD9: 782.1, ICD10: R21 - eczema ? - CETIRIZINE 10 MG TABLET - TRIAMCINOLONE ACETONIDE 0.1 % TOPICAL CREAM - follow up with PCP should symptoms persist All of the above discussed with the kaelyn ent in detail. Patient is in agreement with the above plan. Treatment and plan of care discussed including course of treatment, possible medication side effects, and what to watch for in regards to worsening signs and symptoms. All questions addressed. Darron Mcqueen APRN.COMBINATION PRESSER Referring Provider: SELF [[id number]] Allergies As of Date: 05/14/2020 (No Known Allergies) Date Reviewed: 05/14/2020 Reviewed by: Darron Desai (Trash Hauler Professor Of Religious Studies) Richar - Fully Assessed Reason for Visit: Mouth/Lip Problem [68] Cmt: swollen (left) side of face x 2 weeks Primary Visit Diagnosis:Dental infection [K04.7] Other Visit Diagnosis:Rash [R21] Order(s):amoxicillin-clavulanic acid (AUGMENTIN) 875-1 25 mg per tabletTake 1 tablet by mouth twice daily for 10 days.Disp: 20 tabletRfl: 0 Chlorhexidine Gluconate (PERIDEX) 0.12 % solutionTake 15 mL by mouth twice daily for 10 days.Disp: 300 mLRfl: 0 cetirizine (ZYRTEC) 10 mg tabletTake 1 tablet by mouth once daily.Disp: 30 tabletRfl: 0 triamcinolone acetonide (KENALOG) 0.1 % creamApply 1 applica tion to affected area twice daily for 10 days. Apply to affected are a. Do not use on face.Disp: 80 gRfl: 0 Prescriptions as of 05/14/2020 Sig: FLUOXETINE 20 MG CAPSULE Take 1 capsule by mouth once * ONDANSETRON 4 MG DISINTEGRATI* Take 1 tablet by mouth every * HYDROXYZINE HCL 25 MG TABLET Take 1 tablet by mouth every * PANTOPRAZOLE 40 MG TABLET,DEL* Take 1 tablet by mouth daily * AMOXICILLIN 875 MG-POTASSIUM * Take 1 tablet by mouth twice * CHLORHEXIDINE GLUCONATE 0.12 * Take 15 mL by mouth twice sonal * CETIRIZINE 10 MG TABLET Take 1 tablet by mouth once d* TRIAMCINOLONE ACETONIDE 0.1 %* Apply 1 application to affect * Problem List As Of Date 05/14/2020 Noted Resolved Substance use disorder [F19.90] 07/22/2018 Hypertension, essential [I10] 07/22/2018 Eating disorder [F50.9] 07/22/2018 Perforation of tympanic membrane [H72.90] 09/14/2018 Prescriptions ordered this encounter Disp Refills Start End AMOXICILLIN 875 MG-POTASSIUM CLAVULA* 20 t* 0 05/14/2020 Route: ORAL Sig: Take 1 tablet by mouth twice daily for 10 days. CHLORHEXIDINE GLUCONATE 0.12 % MOUTH* 300 * 0 05/14/2020 Route: ORAL Sig: Take 15 mL by mouth twice daily for 10 days. CETIRIZINE 10 MG TABLET 30 t* 0 05/14/2020 Route: ORAL Sig: Take 1 tablet by mouth once daily. TRIAMCINOLONE ACETONIDE 0.1 % TOPICA* 80 g 0 05/14/2020 07/10/2019 Route: TOPICAL Sig: Apply 1 application to affected area twice daily for 10 days. Apply to affected area. Do not use on face. Letter Text Encounter Status:Closed by RICHAR PERLA.DARRON ERIC on 05/15 progress on 2020-03 PROGRESS HNO ID: [id number] Normal 04-23-2020 [facility] Author: Simón Lopez [facility] ([id number]) Service: ? Author Type: Physician Type: Progress Notes Filed: 04/23/2020 6:02 PM Note Text: Chief Complaint Patient presents with: Recheck HPI Jose Ba is a 34 year old female who presents here tod ay for a follow up from . Was previously following with Dr. Fabian, but felt uncomf ortable with him with her history of bulimia. Pt was recently in Urgent C are for torn esophageal and dental infection. Currently not working, due to planning on moving. Esophagus - Pt reports that she was vomiting x 1 month (5/27 ) and then started experiencing black coffee ground, dark red blood vom iting. She notes during this time she felt like she couldn't breathe an d knew she did something or tore something. She was seen in the ER. [facility] ER prescribed her Omeprazole 20 mg once daily, pain medication, Zofran and Ati van 0.5 mg. Since this time she has non stop nausea, diarrhea (mucous ty pe stool) x 1 month despite not eating. Reports general feeling of . She is not able to eat much due to just vomiting. She feels at this poi nt its involuntary. She reports history of substance abuse, seen Co unselor few year ago. Recently signed up to see a Counselor but doesn't follow Psych. Reports ongoing bulimia/anorexia, for the last 13 years. She realized now after this episode that she has underlying anxiety issues an d hit an all time low. She reports that she knows with this history of wh at her normal vomiting is and this was not her normal. She is having anxie ty and its causing issues with her . Previously on Lisinopril for high BP, but she has not been o n the medication for several months. Unable to drink much, due to the sensation of feeling like i t going to come right up. Feels the Omeprazole doesn't help much. Has a lot of yellow acid come up. Past medical history, appointments, medications, allergies r eviewed. Previous Medical History PAST MEDICAL HISTORY Diagnosis Date - Chronic otitis media after insertion of tympanic ventilati on tube, right Hearing loss, right - Eating disorder 07/22/2018 bulimia x 12 years. - History of mood disorder - Hypertension, essential 07/22/2018 - Substance use disorder 07/22/2018 Previous Surgical History PAST SURGICAL HISTORY Procedure Laterality Date - PAST SURGICAL HISTORY OF 09/30/2015 - PAST SURGICAL HISTORY OF 05/24/2009 Family History FAMILY HISTORY Adopted: Yes Patient Allergies ALLERGIES No Known Allergies Current Medications Current Outpatient Medications on File Prior to Visit Medication Sig - amoxicillin-clavulanic acid (AUGMENTIN) 875-125 mg per tab let Take 1 tablet by mouth twice daily for 7 days. - omeprazole (PRILOSEC) 20 mg capsule Take 20 mg by mouth on ce daily. No current facility-administered medications on file prior t o visit. Social History Social History Tobacco Use - Smoking status: Former Smoker Packs/day: 1.00 Years: 19.00 Pack years: 19.00 Last attempt to quit: 11/25/2014 Years since quittin.4 - Smokeless tobacco: Never Used Substance Use Topics - Alcohol use: Yes Alcohol/week: 35.0 standard drinks Types: 14 Cans of Beer (12oz) per week Comment: h/o alcoholism - Drug use: Yes Types: Amphetamines, Crack Cocaine, Cocaine, Opiates Comment: none for 2 months. EXAM: BP 128/88 (BP Site: Left Arm, BP Position: Sitting, BP Cuff Size: Regular Adult) Pulse 96 Resp 16 LMP 07/17/2018 (Approximate) General Appearance: Well appearing, alert, in no acute distr ess, well-hydrated, well nourished.. Neck: Supple, no adenopathy; thyroid symmetric, normal size, no bruits. Lungs: Lungs clear to auscultation. No wheezing, rhonchi, ra les.. Heart: RRR without murmur, gallop, or rubs. No ectopy. Abdomen: Normal abdominal exam, Abdomen soft, non-tender. Tobias wel sounds normal. No masses, organomegaly. Health Maintenance List HEPATITIS C SCREENING due on 2004 HIV SCREENING due on 2004 BP CONTROLLED (<130/80) due on 2004 DTAP,TDAP,TD(1 - Tdap) due on 2005 PAP TESTING due on 2007 HPV TESTING due on 2016 ANNUAL PCP TEAM CHRONIC DISEASE VISIT due on 09/14/2019 INFLUENZA(Season Ended) due on 06/25/2020 Data reviewed Urgent Care Notes ASSESSMENT/PLAN: 1. SANDY (generalized anxiety disorder) - ICD9: 300.02, ICD10: F41.1 (primary diagnosis) Start prozac - FLUOXETINE 20 MG CAPSULE - HYDROXYZINE HCL 25 MG TABLET 2. Bulimia - ICD9: 307.51, ICD10: F50.2 - FLUOXETINE 20 MG CAPSULE 3. Anorexia nervosa with bulimia - ICD9: 307.1, 307.51, ICD1 0: F50.02 - FLUOXETINE 20 MG CAPSULE 4. Dental infection - ICD9: 522.4, ICD10: K04.7 Continue augmentin 5. Tear of esophagus, subsequent encounter - ICD9: V58.89, 8 74.4, ICD10: S11.21XD Change to protonix, use zofran for vomiting 6. Nausea - ICD9: 787.02, ICD10: R11.0 - ONDANSETRON 4 MG DISINTEGRATING TABLET 7. Diarrhea, unspecified type - ICD9: 787.91, ICD10: R19.7 - ONDANSETRON 4 MG DISINTEGRATING TABLET 8. GERD without esophagitis - ICD9: 530.81, ICD10: K21.9 - swith to protonix 4 wk f/u. I agree with the Chief Complaint, ROS, and Past Histories in dependently gathered by the clinical server support technician and the remaining scr ibed note accurately describes my personal service to the patient. Simón Dubois MD The documentation for this note was completed by Kelly piper MA acting as scribe for Simón Dubois MD. April 23, 2020 8:16 AM. Kelly Garay MA cnov on 2020-04-23 CNOV Office Visit (FAMPWS) Normal 04-23-[address] [place] [address] [facility] AJJOSE Rajan ([id number]) 1985 [facility] Date Time Provider Department ([id number]) 04/23/20 8:00 AM SIMÓN DUBOIS FAMPWS During your visit today, we recorded the following informati on about you: Pulse Respiration Blood pressure 96/minute 16/minute 128/88 Simón Dubois MD 04/23/2020 6:02 PM Signed Chief Complaint Patient presents with: Recheck HPI Jose Rajan Aj is a 34 year old female w ho presents here today for a follow up from . Was previously following with Dr. Fabian, but felt uncomfortable with him with her history of bulimia. Pt was recently in Urgent Care for torn esophageal and dental infection. Currently not working, due to planning on moving. Esophagus - Pt reports that she was vomi ting x 1 month (03/20) and then started experiencing black coffee ground, dark red blood vomiting. She notes during this time she felt like she couldn't breathe and knew she did something or tore something. She was seen in the ER. [facility] E R prescribed her Omeprazole 20 mg once daily, pain medication, Zofran and Ativan 0.5 mg . Since this time she has non stop nausea, diarrhea (mucou s type stool) x 1 month despite not eating. Reports general feeling of . She is not able to e at much due to just vomiting. She feels at this point its involuntary. She reports history of substance abuse, seen Counselor few year ago. Recently sig george up to see a Counselor but doesn't follow Psych. Reports ongoing bulimia/anor exia, for the last 13 years. She realized now after this episode that she has underlying anxiety issues an d hit an all time low. She reports that she knows w ith this history of what her normal vomiting is and this was not her normal. She is having a nxiety and its causing issues with her . Previously on Lisinopril for high BP, but she has not been on the medication for several months. Unable to drink much, due to the sensation of feeling like it going to come right up. Feels the Omeprazo le doesn't help much. Has a lot of yellow acid come up. Past medical history, appointments, medications, allergies r harshaliewed. Previous Medical History PAST MEDICAL HISTORY Diagnosis Date - Chronic otitis media after insertion of tympanic ventilati on tube, right Hearing loss, right - Eating disorder 07/22/2018 bulimia x 12 years. - History of mood disorder - Hypertension, essential 07/22/2018 - Substance use disorder 07/22/2018 Previous Surgical History PAST SURGICAL HISTORY Procedure Laterality Date - PAST SURGICAL HISTORY OF 09/30/2015 - PAST SURGICAL HISTORY OF 05/24/2009 Family History FAMILY HISTORY Adopted: Yes Patient Allergies ALLERGIES No Known Allergies Current Medications Current Outpatient Medications on File Prior to Visit Medication Sig - amoxicillin-clavulanic acid (AUGMENTIN) 875-12 5 mg per tablet Take 1 tablet by mouth twice daily for 7 days. - omeprazole (PRILOSEC) 20 mg capsule Take 20 mg by mouth on ce daily. No current facility-administered medications on file prior t o visit. Social History Social History Tobacco Use - Smoking status: Former Smoker Packs/day: 1.00 Years: 19.00 Pack years: 19.00 Last attempt to quit: 11/25/2014 Years since quittin.4 - Smokeless tobacco: Never Used Substance Use Topics - Alcohol use: Yes Alcohol/week: 35.0 standard drinks Types: 14 Cans of Beer (12oz) per week Comment: h/o alcoholism - Drug use: Yes Types: Amphetamines, Crack Cocaine, Cocaine, Opiates Comment: none for 2 months. EXAM: BP 128/88 (BP Site: Left Arm, BP Position: Sitting, BP Cuff Size: Regular Adult) Pulse 96 Resp 16 LMP 07/17/2018 (Approximate) General Appearance: Well zuleyma earing, alert, in no acute distress, well-hydrated, well nourished.. Neck: Supple, no adenopathy; thyroid symmetric, normal size, no bruits. Lungs: Lungs clear to auscultation. No wheezing, rhonchi, ra les.. Heart: RRR without murmur, gallop, or rubs. No ectopy. Abdomen: Normal abdominal exam, Abdomen soft, non-tender. Bowel sounds normal. No masses, organomegaly. Health Maintenance List HEPATITIS C SCREENING due on 2004 HIV SCREENING due on 2004 BP CONTROLLED (<130/80) due on 2004 DTAP,TDAP,TD(1 - Tdap) due on 2005 PAP TESTING due on 2007 HPV TESTING due on 2016 ANNUAL PCP TEAM CHRONIC DISEASE VISIT due on 09/14/2019 INFLUENZA(Season Ended) due on 06/25/2020 Data reviewed Urgent Care Notes ASSESSMENT/PLAN: 1. SANDY (generalized anxiety disorder) - ICD9: 300.02, ICD1 0: F41.1 (primary diagnosis) Start prozac - FLUOXETINE 20 MG CAPSULE - HYDROXYZINE HCL 25 MG TABLET 2. Bulimia - ICD9: 307.51, ICD10: F50.2 - FLUOXETINE 20 MG CAPSULE 3. Anorexia nervosa with bulimia - ICD9: 307.1, 307.51, ICD1 0: F50.02 - FLUOXETINE 20 MG CAPSULE 4. Dental infection - ICD9: 522.4, ICD10: K04.7 Continue augmentin 5. Tear of esophagus, subsequent encounter - ICD9: V58.89, 8 74.4, ICD10: S11.21XD Change to protonix, use zofran for vomiting 6. Nausea - ICD9: 787.02, ICD10: R11.0 - ONDANSETRON 4 MG DISINTEGRATING TABLET 7. Diarrhea, unspecified type - ICD9: 787.91, ICD10: R19.7 - ONDANSETRON 4 MG DISINTEGRATING TABLET 8. GERD without esophagitis - ICD9: 530.81, ICD10: K21.9 - swith to protonix 4 wk f/u. I agree with the Chief Complaint, ROS, and Past Histories in dependently gathered by the clinical server support technician and the remaining scr ibed note accurately describes my personal service to the patient. Simón Dubois MD The documentation for this note was completed by Kelly piper MA acting as scribe for Simón Dubois MD. April 23, 2020 8:16 AM. Kelly Garay MA Referring Provider: SELF [[id number]] Allergies As of Date: 04/23/2020 (No Known Allergies) Date Reviewed: 04/20/2020 Reviewed by: Waleska Tobin Ma - Fully Assessed Reason for Visit: Recheck [92] Primary Visit Diagnosis:SANDY (generalized anxiety disorder) [ F41.1] Other Visit Diagnoses:Bulimia [F50.2] Anorexia nervosa with bulimia [F50.02] Dental infection [K04.7] Tear of esophagus, subsequent encounter [S11.21XD] Nausea [R11.0] Diarrhea, unspecified type [R19.7] GERD without esophagitis [K21.9] Order(s):FLUoxetine (PROZAC) 20 mg capsuleTake 1 capsule by mouth once daily.Disp: 30 capsuleRfl: 2 ondansetron orally disintegrating (ZOFRAN ODT) 4 mg disinteg rating tabletTake 1 tablet by mouth every 6 hours as needed for Nausea/Vomiting.Disp: 30 tabletRfl: 2 hydrOXYzine HCl (ATARAX) 25 mg tabletTake 1 tablet by mouth every 6 hours as needed for Itching/Rash.Disp: 30 tabletRfl: [address] (PROTONIX) 40 mg tabletTake 1 tablet by mout h daily before breakfast. Take on empty stomach, 1/2 hr before meal. Disp: 30 tabletRfl: 2 Prescriptions as of 04/23/2020 Sig: AMOXICILLIN 875 MG-POTASSIUM * Take 1 tablet by mouth twice * FLUOXETINE 20 MG CAPSULE Take 1 capsule by mouth once * ONDANSETRON 4 MG DISINTEGRATI* Take 1 tablet by mouth every * HYDROXYZINE HCL 25 MG TABLET Take 1 tablet by mouth every * PANTOPRAZOLE 40 MG TABLET,DEL* Take 1 tablet by mouth daily * Problem List As Of Date 04/23/2020 Noted Resolved Substance use disorder [F19.90] 07/22/2018 Hypertension, essential [I10] 07/22/2018 Eating disorder [F50.9] 07/22/2018 Perforation of tympanic membrane [H72.90] 09/14/2018 Prescriptions ordered this encounter Disp Refills Start End FLUOXETINE 20 MG CAPSULE 30 c* 2 04/23/2020 Route: ORAL Sig: Take 1 capsule by mouth once daily. ONDANSETRON 4 MG DISINTEGRATING TABL* 30 t* 2 04/23/2020 Route: ORAL Sig: Take 1 tablet by mouth every 6 hours as needed for Naus ea/Vomiting. HYDROXYZINE HCL 25 MG TABLET 30 t* 3 04/23/2020 Route: ORAL Sig: Take 1 tablet by mouth every 6 hours as needed for Itch ing/Rash. PANTOPRAZOLE 40 MG TABLET,DELAYED RE* 30 t* 2 04/23/2020 Route: ORAL Sig: Take 1 tablet by mouth daily before breakfast. Take on empty stomach, 1/2 hr before meal. Medications Discontinued During This Encounter omeprazole (PRILOSEC) 20 mg capsule 03/20/2020 04/23/2020 Class: Historical Med Route: ORAL Sig: Take 20 mg by mouth once daily. Disc: Reason for discontinue is not on file. Encounter Status:Closed by SIMÓN DUBOIS MD on 04/23/20 progress on 2020-03 PROGRESS HNO ID: [id number] Normal 04-20-2020 [facility] Author: Dennis Corbett ([id number]) Service: ? Author Type: Physician Type: Progress Notes Filed: 04/20/2020 3:28 PM Note Text: Patient presents with: Dental Problem: left upper tooth pain x 3-4 days HPI: Left cheek swelling: Duration: 4 days Location: Left maxilla Character: Swollen, tooth is not tender Radiation: Painful in her cheek and behind her eye Associated: Cavity and gum redness (afraid of dentist) Pertinent negatives: Denies fever. History is significant for [facility] evaluation for a tear in her esophagus. She was discharged on omeprazole which she is taking. She di d not schedule follow up. She has had nausea, vomiting, diarrhea a nd sore throat since. She denies hematemesis since discharge or melena/hematochezia. No abdominal pain. She has cough, short ness of breath, nasal congestion, and rhinorrhea the last 4 days. She is not taking lisinopril prescribed in 2018 because she has not followed up for refills. 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 MEDICATIONS: omeprazole (PRILOSEC) 20 mg capsule Take 20 mg by mouth once daily. ALLERGIES: ALLERGIES No Known Allergies VITALS: BP 120/82 Pulse 104 Temp 36.8 ?C (98.3 ?F) (Tympanic) Resp 18 Wt 62.1 kg (137 lb) LMP 07/17/2018 (Approximate) SpO2 98 % BMI 26.76 kg/m? PE: Gen: Pleasant, in no acute distress. Eyes: PERRL, EOMI, sclera clear Ears: Canals clear. TMs without erythema, bulge, or effusion Sinuses: non-tender frontal, mild swelling and discomfort le ft maxilla, sniffing some nasal discharge Mouth/throat: MMM, left upper first bicuspid has a cavity an d macular erythema in the gum above it Neck: Supple, no thyromegaly, nontender, no lymphadenopathy Heart: regular rate and rhythm, no murmurs Lungs: clear to auscultation ABD: Soft, non-distended, non-tender, no masses PSYCH: Normal mood, full range of affect, speech rate normal and content appropriate EXT: No edema. ASSESSMENT/PLAN: 1. Dental infection - ICD9: 522.4, ICD10: K04.7 (primary michaela gnosis) - AMOXICILLIN 875 MG-POTASSIUM CLAVULANATE 125 MG TABLET Advised 10 day home isolation from onset of URI symptoms dur ing COVID-19 pandemic. 2. Injury of esophagus, subsequent encounter - ICD9: V58.89, 862.22, ICD10: S27.819D Patient admits she is not good at seeking medical attention. Encouraged to follow up with primary care. Exam is benign today except for mild left cheek swelling. Assisted with arranging primary care virtual appointment to follow up ER/hospital visit and vomiting/diarrhea. Dennis Pro MD cnov on 2020-04-20 CNOV Office Visit (UCWSTR) Normal 04-20-20 [place] [facility] AJJOSE Rajan ([id number]) 1985 [facility] Date Time Provider Department ([id number]) 04/20/20 2:30 PM DENNIS PRO [facility] During your visit today, we recorded the following informati on about you: Temperature Pulse Respiration Blood pressure 98.3 degrees 104/minute 18/minute 120/82 Weight 62.1 kg Dennis Pro MD 04/20/2020 3:28 PM Signed Patient presents with: Dental Problem: left upper tooth pain x 3-4 days HPI: Left cheek swelling: Duration: 4 days Location: Left maxilla Character: Swollen, tooth is not tender Radiation: Painful in her cheek and behind her eye Associated: Cavity and gum redness (afraid of dentist) Pertinent negatives: Denies fever. History is significant for [facility] evaluatio n for a tear in her esophagus. She was discharged on omeprazole which she is taking. mohini did not schedule follow up. She has had nausea, vomiting, diarrhea and sore throat since . She denies hematemesis since discharge or melena/hematochezia. No abdom inal pain. She has cough, shortness of breath, nasal congestion, and rhin orrhea the last 4 days. She is not taking lisinopril prescribed in 2018 because she has not followed up for refills. 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 MEDICATIONS: omeprazole (PRILOSEC) 20 mg capsule Take 20 mg by mouth once daily. ALLERGIES: ALLERGIES No Known Allergies VITALS: BP 120/82 Pulse 104 Temp 36.8 ?C (98.3 ?F) (Tympanic) Resp 18 Wt 62.1 kg (137 lb) LMP 07/17/2018 (Approximate) SpO2 98% BMI 26.76 kg/m? PE: Gen: Pleasant, in no acute distress. Eyes: PERRL, EOMI, sclera clear Ears: Canals clear. TMs without erythema, bulge, or effusion Sinuses: non-tender frontal, mild swelling and discomfort le ft maxilla, sniffing some nasal discharge Mouth/throat: MMM, left upper first bicu spid has a cavity and macular erythema in the gum above it Neck: Supple, no thyromegaly, nontender, no lymphadenopathy Heart: regular rate and rhythm, no murmurs Lungs: clear to auscultation ABD: Soft, non-distended, non-tender, no masses PSYCH: Normal mood, full range of affect, speech rate normal and content appropriate EXT: No edema. ASSESSMENT/PLAN: 1. Dental infection - ICD9: 522.4, ICD10: K04.7 (primary michaela gnosis) - AMOXICILLIN 875 MG-POTASSIUM CLAVULANATE 125 MG TABLET Advised 10 day home isolation from onset of URI symptoms dur ing COVID-19 pandemic. 2. Injury of esophagus, subsequent encounter - ICD9: V58.8 9, 862.22, ICD10: S27.819D Patient admits she is not good at seeking medical attention. Encouraged to follow up with primary care. Exam is benign today exce pt for mild left cheek swelling. Assisted with arranging primary care virtual appointment to follow up ER/hospital visit and vomiting/diarrhea. Dennis Pro MD Referring Provider: SELF [[id number]] Allergies As of Date: 04/20/2020 (No Known Allergies) Date Reviewed: 04/20/2020 Reviewed by: Waleska Tobin Ma - Fully Assessed Reason for Visit: Dental Problem [31] Cmt: left upper tooth pain x 3-4 days Primary Visit Diagnosis:Dental infection [K04.7] Other Visit Diagnosis:Injury of esophagus, subsequent encoun ter [S27.819D] Order(s):amoxicillin-clavulanic acid (AUGMENTIN) 875-1 25 mg per tabletTake 1 tablet by mouth twice daily for 7 days.Disp: 14 tabletRfl: 0 Prescriptions as of 04/20/2020 Sig: OMEPRAZOLE 20 MG CAPSULE,GORAN* Take 20 mg by mouth once dg * AMOXICILLIN 875 MG-POTASSIUM * Take 1 tablet by mouth twice * Medication notes this encounter LISINOPRIL 10 MG TABLET >> Dennis Pro MD 04/20/2020 3:13 PM did not follow up for refills Problem List As Of Date 04/20/2020 Noted Resolved Substance use disorder [F19.90] 07/22/2018 Hypertension, essential [I10] 07/22/2018 Eating disorder [F50.9] 07/22/2018 Perforation of tympanic membrane [H72.90] 09/14/2018 Prescriptions ordered this encounter Disp Refills Start End AMOXICILLIN 875 MG-POTASSIUM CLAVULA* 14 t* 0 04/20/202001/2020 Route: ORAL Sig: Take 1 tablet by mouth twice daily for 7 days. Medications Discontinued During This Encounter lisinopril (ZESTRIL, PRINIVIL) 10 mg* 30 t* 5 09/14/201803/26 Route: ORAL Sig: Take 1 tablet by mouth once daily. Patient not taking: Reported on 04/20/2020 Disc: Discontinued by Patient Encounter Status:Closed by DENNIS PRO MD on 04/20/20 culture anaerobe on 2019-04-19 CULTURE ANAEROBE CULTURE ANAEROBE --> Status: F No [facility] 04-19-2019 [facility] No growth of anaerobes at 5 days. ([id number]) Comment: Order Comment: Specimen sarah ected in O.R.; received on swab. Performed By: #### CS/BA, C/ REECE ####[facility] [id number] [place] [address] CULTURE ANAEROBE CULTURE ANAEROBE --> Status: F No [facility] 04-19-2019 [facility] No growth of anaerobes at 5 days. ([id number]) Comment: Order Comment: Specimen sarah ected in O.R.; received on swab. Performed By: #### HEMDF, PT , BMP3, CRP2, LFT3 #### [address] [place], [place] vancomycin trough o n 2019-04-17 Vancomycin Trough 6.8 15.0-20.0 ug/mL Low 04-17-2019 [facility] ([id number]) Comment: Result Comment: . Performed By: #### HEMDF, PT , BMP3, CRP2, LFT3 #### [address] magnesium on 04-17 Magnesium [Mass/Vol] 1.9 1.6-2.3 mg/dL Normal 9 [facility] ([id number]) Comment: Performed By: #### HEMDF, PT , BMP3, CRP2, LFT3 #### [address] hemogram w/ autodiff on 2019-04-17 Abs Baso Cnt 0.1 0.0-0.2 10*3/uL Normal 04-17-2019 [facility] ([id number]) Comment: Performed By: #### HEMDF, PT , BMP3, CRP2, LFT3 #### [address] Abs Neutrophile Cnt 4.6 1.8-7.0 10*3/uL Normal 04-17-2019 [facility] ([id number]) Comment: Performed By: #### HEMDF, PT , BMP3, CRP2, LFT3 #### [address] Basophils/100 WBC (Bld) 0.7 0.0-2.0 % Normal 2018 [facility] ([id number]) Comment: Performed By: #### HEMDF, PT , BMP3, CRP2, LFT3 #### [address] Eosinophils (Bld) [#/Vol] 0.1 0.0-0.5 10*3/uL Normal 03-26 [facility] ([id number]) Comment: Performed By: #### HEMDF, PT , BMP3, CRP2, LFT3 #### [address] [place] [address] Eosinophils/100 WBC (Bld) 1.6 1.0-6.0 % Normal 03-26 [facility] ([id number]) Comment: Performed By: #### HEMDF, PT , BMP3, CRP2, LFT3 #### [address] [place] [address] Erythrocyte distribution 13.6 11.5-14.5 % Normal 04-17 [facility] width (RBC) [Ratio] ([id number]) Comment: Performed By: #### HEMDF, PT , BMP3, CRP2, LFT3 #### [address] [place], [place] Granulocytes/100 WBC (Bld) 65.2 40.0-80.0 % Normal [facility] ([id number]) Comment: Performed By: #### HEMDF, PT , BMP3, CRP2, LFT3 #### [address] [place], [place] Hematocrit (Bld) [Volume 36.2 35.0-47.0 % Normal 04-17 [facility] fraction] ([id number]) Comment: Performed By: #### HEMDF, PT , BMP3, CRP2, LFT3 #### [address] [place], [place] Hemoglobin (Bld) 12.3 11.7-16.0 g/dL Normal 04-17-2019 [facility] [Mass/Vol] ([id number]) Comment: Performed By: #### HEMDF, PT , BMP3, CRP2, LFT3 #### [address] [place], [place] Lymphocytes (Bld) [#/Vol] 1.7 1.0-4.3 10*3/uL Normal 03-26 [facility] ([id number]) Comment: Performed By: #### HEMDF, PT , BMP3, CRP2, LFT3 #### [address] [place], [place] Lymphocytes/100 WBC (Bld) 24.2 20.0-40.0 % Normal 03-26 [facility] ([id number]) Comment: Performed By: #### HEMDF, PT , BMP3, CRP2, LFT3 #### [address] [place], [place] MCH (RBC) [Entitic mass] 32.8 26.0-34.0 pg Normal 04-17 [facility] ([id number]) Comment: Performed By: #### HEMDF, PT , BMP3, CRP2, LFT3 #### [address] [place], [place] MCHC (RBC) [Mass/Vol] 33.9 32.0-36.0 % Normal 04-17-20 [facility] ([id number]) Comment: Performed By: #### HEMDF, PT , BMP3, CRP2, LFT3 #### [address] MCV (RBC) [Entitic vol] 96.8 79.0-98.0 fL Normal 2018 [facility] ([id number]) Comment: Performed By: #### HEMDF, PT , BMP3, CRP2, LFT3 #### [address] [place], [place] Monocytes (Bld) [#/Vol] 0.6 0.0-0.8 10*3/uL Normal 2018 [facility] ([id number]) Comment: Performed By: #### HEMDF, PT , BMP3, CRP2, LFT3 #### [address] [place], [place] Monocytes/100 WBC (Bld) 8.3 2.0-10.0 % Normal 2018 [facility] (04723) Comment: Performed By: #### HEMDF, PT , BMP3, CRP2, LFT3 #### [address] Platelet mean volume (Bld) 9.2 7.4-10.4 fL Normal [facility] [Entitic vol] ([id number] ) Comment: Performed By: #### HEMDF, PT , BMP3, CRP2, LFT3 #### [address] [place], [place] Platelets (Bld) [#/Vol] 212 140-440 10*3/uL Normal 2018 [facility] ([id number]) Comment: Performed By: #### HEMDF, PT , BMP3, CRP2, LFT3 #### [address] [place], [place] RBC (Bld) [#/Vol] 3.74 3.80-5.20 10*6/uL Low 04-17-2019 [facility] (50024) Comment: Performed By: #### HEMDF, PT , BMP3, CRP2, LFT3 #### [address] [place], [place] WBC (Bld) [#/Vol] 7.0 3.6-10.7 10*3/uL Normal 04-17-2019 [facility] ([id number]) Comment: Performed By: #### HEMDF, PT , BMP3, CRP2, LFT3 #### [address] [place], [place] c-reactive protein on 2019-04-17 CRP [Mass/Vol] 19.2 0.0-6.0 mg/L High 04-17-2019 [facility] (54700) Comment: Result Comment: . Performed By: #### HEMDF, PT , BMP3, CRP2, LFT3 #### [address] [place], [place] basic metabolic panel on 2019-04-17 Calcium [Mass/Vol] 8.5 8.4-10.4 mg/dL Normal 04-17-2019 [facility] (64775) Comment: Performed By: #### HEMDF, PT , BMP3, CRP2, LFT3 #### [address] [place], [place] Glucose [Mass/Vol] 108 70-100 mg/dL High 04-17-2019 [facility] (33309) Comment: Performed By: #### HEMDF, PT , BMP3, CRP2, LFT3 #### [address] [place], [place] Anion gap [Moles/Vol] 4 Normal 04-17-20 [facility] (44991) Comment: Performed By: #### HEMDF, PT , BMP3, CRP2, LFT3 #### [address] [address] [place], [place] CO2 [Moles/Vol] 28 22-30 mmol/L Normal 04-17-2019 [facility] (39501) Comment: Performed By: #### HEMDF, PT , BMP3, CRP2, LFT3 #### [address] [address] [place], [place] Creatinine [Mass/Vol] 0.40 0.52-1.25 mg/dL Low 04-17-20 [facility] (76561) Comment: Performed By: #### HEMDF, PT , BMP3, CRP2, LFT3 #### [address] [address] [place], [place] GFR/1.73 sq M > 60.0 >60 mL/min/{1.73_m2} Normal 9 [facility] predicted among Syst em (03221) blacks MDRD (S/P/Bld) [Vol rate/Area] Comment: Performed By: #### HEMDF, PT , BMP3, CRP2, LFT3 #### [address] [address] [address] [place], [place] GFR/1.73 sq M > 60.0 >60 mL/min/{1.73_m2} Normal 9 [facility] predicted among Syst em (58981) non-blacks MDRD (S/P/Bld) [Vol rate/Area] Comment: Result Comment: Source- MDRD equation with creatinine calibration to IDMS(NKDEP) eGFR not recommended for mireya g dose adjustment Performed By: #### HEMDF, PT , BMP3, CRP2, LFT3 #### [address] [address] [address] [place], [place] Urea nitrogen [Mass/Vol] 6 7-20 mg/dL Low 04-17 [facility] (76130) Comment: Performed By: #### HEMDF, PT , BMP3, CRP2, LFT3 #### [address] [address] [place] [address] Chloride [Moles/Vol] 109 98-107 mmol/L High 9 [facility] (16425) Comment: Performed By: #### HEMDF, PT , BMP3, CRP2, LFT3 #### [address] [address] [place] [address] Potassium [Moles/Vol] 3.9 3.5-5.1 mmol/L Normal 04-17-20 19 [facility] (31798) Comment: Performed By: #### HEMDF, PT , BMP3, CRP2, LFT3 #### [address] [address] [place] [address] Sodium [Moles/Vol] 141 135-145 mmol/L Normal 04-17-2019 [facility] (60173) Comment: Performed By: #### HEMDF, PT , BMP3, CRP2, LFT3 #### [address] [address] [place] [address] magnesium on 04-16 Magnesium [Mass/Vol] 2.0 1.6-2.3 mg/dL Normal 9 [facility] (25906) Comment: Performed By: #### HEMDF, CR P2, BMP3, MG3, LFT3 ####[address] [place], [place] hepatic function on 2019-04-16 ALP [Catalytic activity/Vol] 94 38-126 U/L Normal 0 04-16-2019 [facility] (60287) Comment: Performed By: #### HEMDF, CR P2, BMP3, MG3, LFT3 ####[address] [place], [place] [address] ALT [Catalytic activity/Vol] 37 13-69 U/L Normal 0 04-16-2019 [facility] (39177) Comment: Performed By: #### HEMDF, CR P2, BMP3, MG3, LFT3 ####[address] [address] AST [Catalytic activity/Vol] 45 15-46 U/L Normal 0 04-16-2019 [facility] (70609) Comment: Performed By: #### HEMDF, CR P2, BMP3, MG3, LFT3 ####[address] [address] Bilirubin [Mass/Vol] 0.2 0.2-1.3 mg/dL Normal 9 [facility] (56066) Comment: Performed By: #### HEMDF, CR P2, BMP3, MG3, LFT3 ####[address] [address] Bilirubin.direct [Mass/Vol] 0.0 0.0-0.3 mg/dL Normal [facility] (10213) Comment: Performed By: #### HEMDF, CR P2, BMP3, MG3, LFT3 ####[address] [address] Protein [Mass/Vol] 6.4 6.3-8.2 g/dL Normal 04-16-2019 [facility] (45480) Comment: Performed By: #### HEMDF, CR P2, BMP3, MG3, LFT3 ####[address] [address] Albumin [Mass/Vol] 3.2 3.5-5.0 g/dL Low 04-16-2019 [facility] (75647) Comment: Performed By: #### HEMDF, CR P2, BMP3, MG3, LFT3 ####[address] [address] hemogram w/ autodiff on 2019-04-16 Abs Baso Cnt 0.0 0.0-0.2 10*3/uL Normal 04-16-2019 [facility] (46353) Comment: Performed By: #### HEMDF, CR P2, BMP3, MG3, LFT3 ####[address] [address] Abs Neutrophile Cnt 7.8 1.8-7.0 10*3/uL High 04-16-2019 [facility] (13136) Comment: Performed By: #### HEMDF, CR P2, BMP3, MG3, LFT3 ####[address] [address] Basophils/100 WBC (Bld) 0.4 0.0-2.0 % Normal 2018 [facility] (81683) Comment: Performed By: #### HEMDF, CR P2, BMP3, MG3, LFT3 ####[address] [address] Eosinophils (Bld) [#/Vol] 0.1 0.0-0.5 10*3/uL Normal 03-26 [facility] (49364) Comment: Performed By: #### HEMDF, CR P2, BMP3, MG3, LFT3 ####[address] [address] Eosinophils/100 WBC (Bld) 0.6 1.0-6.0 % Low 03-26 [facility] (08895) Comment: Performed By: #### HEMDF, CR P2, BMP3, MG3, LFT3 ####[address] [address]0 Erythrocyte distribution 13.4 11.5-14.5 % Normal 04-16 [facility] width (RBC) [Ratio] (62038) Comment: Performed By: #### HEMDF, CR P2, BMP3, MG3, LFT3 ####[address] [address] Granulocytes/100 WBC (Bld) 71.5 40.0-80.0 % Normal [facility] (73265) Comment: Performed By: #### HEMDF, CR P2, BMP3, MG3, LFT3 ####[address] [address] Hematocrit (Bld) [Volume 37.8 35.0-47.0 % Normal 04-16 [facility] fraction] (30083) Comment: Performed By: #### HEMDF, CR P2, BMP3, MG3, LFT3 ####[address] [address] Hemoglobin (Bld) 12.7 11.7-16.0 g/dL Normal 04-16-2019 [facility] [Mass/Vol] (22430) Comment: Performed By: #### HEMDF, CR P2, BMP3, MG3, LFT3 ####[address] [address] Lymphocytes (Bld) [#/Vol] 2.1 1.0-4.3 10*3/uL Normal 03-26 [facility] (53859) Comment: Performed By: #### HEMDF, CR P2, BMP3, MG3, LFT3 ####[address] [address] Lymphocytes/100 WBC (Bld) 19.7 20.0-40.0 % Low 03-26 [facility] (64915) Comment: Performed By: #### HEMDF, CR P2, BMP3, MG3, LFT3 ####[address] [address] MCH (RBC) [Entitic mass] 32.7 26.0-34.0 pg Normal 04-16 [facility] (47011) Comment: Performed By: #### HEMDF, CR P2, BMP3, MG3, LFT3 ####[address] [address] MCHC (RBC) [Mass/Vol] 33.6 32.0-36.0 % Normal 04-16-20 19 [facility] (73365) Comment: Performed By: #### HEMDF, CR P2, BMP3, MG3, LFT3 ####[place] [address] MCV (RBC) [Entitic vol] 97.3 79.0-98.0 fL Normal 2018 [facility] (80573) Comment: Performed By: #### HEMDF, CR P2, BMP3, MG3, LFT3 ####[address] [address] Monocytes (Bld) [#/Vol] 0.8 0.0-0.8 10*3/uL Normal 2018 [facility] (45796) Comment: Performed By: #### HEMDF, CR P2, BMP3, MG3, LFT3 ####[address] [address] Monocytes/100 WBC (Bld) 7.8 2.0-10.0 % Normal 2018 [facility] (28080) Comment: Performed By: #### HEMDF, CR P2, BMP3, MG3, LFT3 ####[address] [address]0 Platelet mean volume (Bld) 9.0 7.4-10.4 fL Normal [facility] [Entitic vol] (34009 ) Comment: Performed By: #### HEMDF, CR P2, BMP3, MG3, LFT3 ####[address] [address] Platelets (Bld) [#/Vol] 202 140-440 10*3/uL Normal 2018 [facility] (05916) Comment: Performed By: #### HEMDF, CR P2, BMP3, MG3, LFT3 ####[address] [address] RBC (Bld) [#/Vol] 3.88 3.80-5.20 10*6/uL Normal 04-16-2019 [facility] (41941) Comment: Performed By: #### HEMDF, CR P2, BMP3, MG3, LFT3 ####[address] [address] WBC (Bld) [#/Vol] 10.9 3.6-10.7 10*3/uL High 04-16-2019 [facility] (83665) Comment: Performed By: #### HEMDF, CR P2, BMP3, MG3, LFT3 ####[facility] [id number] [facility] [place] [address] c-reactive protein on 2019-04-16 CRP [Mass/Vol] 33.6 0.0-6.0 mg/L High 04-16-2019 [facility] (23883) Comment: Result Comment: . Performed By: #### HEMDF, CR P2, BMP3, MG3, LFT3 ####[facility] [id number] [facility] [place] [address] basic metabolic panel on 2019-04-16 Anion gap [Moles/Vol] 6 Normal 04-16-20 19 [facility] (30305) Comment: Performed By: #### HEMDF, CR P2, BMP3, MG3, LFT3 ####[facility] [place] [address] [address] [address] [facility] [place], [place] [address] Calcium [Mass/Vol] 8.3 8.4-10.4 mg/dL Low 04-16-2019 [facility] (10086) Comment: Performed By: #### HEMDF, CR P2, BMP3, MG3, LFT3 ####[facility] [id number] [facility] [place], [place] [address] CO2 [Moles/Vol] 27 22-30 mmol/L Normal 04-16-2019 [facility] (84478) Comment: Performed By: #### HEMDF, CR P2, BMP3, MG3, LFT3 ####[facility] [id number] [facility] [place] [address] Glucose [Mass/Vol] 109 70-100 mg/dL High 04-16-2019 [facility] (69317) Comment: Performed By: #### HEMDF, CR P2, BMP3, MG3, LFT3 ####[facility] [address] [place], [place] [address] Urea nitrogen [Mass/Vol] 7 7-20 mg/dL Normal 04-16 [facility] (67998) Comment: Performed By: #### HEMDF, CR P2, BMP3, MG3, LFT3 ####[address] [place], [place] [address] Creatinine [Mass/Vol] 0.45 0.52-1.25 mg/dL Low 04-16-20 19 [facility] (34243) Comment: Performed By: #### HEMDF, CR P2, BMP3, MG3, LFT3 ####[address] [place], [place] [address] GFR/1.73 sq M > 60.0 >60 mL/min/{1.73_m2} Normal 9 [facility] predicted among Syst em (25367) blacks MDRD (S/P/Bld) [Vol rate/Area] Comment: Performed By: #### HEMDF, CR P2, BMP3, MG3, LFT3 ####[address] [place], [place] [address] GFR/1.73 sq M > 60.0 >60 mL/min/{1.73_m2} Normal 9 [facility] predicted among Syst em (08502) non-blacks MDRD (S/P/Bld) [Vol rate/Area] Comment: Result Comment: Source- MDRD equation with creatinine calibration to IDMS(NKDEP) eGFR not recommended for mireya g dose adjustment Performed By: #### HEMDF, CR P2, BMP3, MG3, LFT3 ####[address] [place], [place] [address] Chloride [Moles/Vol] 110 98-107 mmol/L High 9 [facility] (09639) Comment: Performed By: #### HEMDF, CR P2, BMP3, MG3, LFT3 ####[address] [place], [place] [address] Potassium [Moles/Vol] 3.3 3.5-5.1 mmol/L Low 04-16-20 19 [facility] (68191) Comment: Performed By: #### HEMDF, CR P2, BMP3, MG3, LFT3 ####[address] [place], [place] [address] Sodium [Moles/Vol] 142 135-145 mmol/L Normal 04-16-2019 [facility] (54044) Comment: Performed By: #### HEMDF, CR P2, BMP3, MG3, LFT3 ####[address] [place], [place] [address] add on test from his on 2019-04-16 Add on test from HIS Accepted Normal 9 [facility] (11704) Comment: Result Comment: Specimen venice ilable & acceptable for analysis. Performed By: #### HEMDF, PT , BMP3, CRP2, LFT3 #### [facility] [address] [place] [address] rpr, qual on 04-15 RPR, Qual NONREACTIVE Non-Reactive Normal 04-15-2019 [facility] (68541) Comment: Performed By: #### HIV4, HEP AN, RPR ####[address] [place], [place] magnesium on 04-15 Magnesium [Mass/Vol] 1.8 1.6-2.3 mg/dL Normal 9 [facility] (06569) Comment: Performed By: #### CRP2, BMP 3, MG3, ETOH4 ####[address] [place], [place] hiv 1,2 ab; p24 ag on 2019-04-15 HIV 1,2 Ab; p24 Ag NONREACTIVE Nonreactive Normal 019 [facility] (48591) Comment: Result Comment: Results obta ined using the FDA cleared 4th generation HIV test. This test detects anti bodies to HIV1, HIV2, HIV Group O, and the presence of the HIV- 1 p24 antigen. A Non-Reactive re- sult indicates the patient i s negative for both HIV antibody and HIV p24 antigen. All eloy ctive results will undergo reflex confirmation testing at an a dditional charge. Performed By: #### HIV4, HEP AN, RPR ####[facility] [id number] [place], [place] hemogram w/ autodiff on 2019-04-15 Abs Baso Cnt 0.0 0.0-0.2 10*3/uL Normal 04-15-2019 [facility] (61136) Comment: Performed By: #### HEMDF ### [address] Abs Neutrophile Cnt 11.9 1.8-7.0 10*3/uL High 04-15-2019 [facility] (52018) Comment: Performed By: #### HEMDF ### [address] Basophils/100 WBC (Bld) 0.1 0.0-2.0 % Normal 2018 [facility] (95190) Comment: Performed By: #### HEMDF ### [address] Eosinophils (Bld) [#/Vol] 0.0 0.0-0.5 10*3/uL Normal 03-26 [facility] (28300) Comment: Performed By: #### HEMDF ### [address] Eosinophils/100 WBC (Bld) 0.0 1.0-6.0 % Low 03-26 [facility] (23186) Comment: Performed By: #### HEMDF ### [address] Erythrocyte distribution 13.5 11.5-14.5 % Normal 04-15 [facility] width (RBC) [Ratio] (39737) Comment: Performed By: #### HEMDF ### [address] Granulocytes/100 WBC (Bld) 88.1 40.0-80.0 % High [facility] (77419) Comment: Performed By: #### HEMDF ### [address] Hematocrit (Bld) [Volume 38.9 35.0-47.0 % Normal 04-15 [facility] fraction] (49335) Comment: Performed By: #### HEMDF ### [address] Hemoglobin (Bld) 13.1 11.7-16.0 g/dL Normal 04-15-2019 [facility] [Mass/Vol] (41107) Comment: Performed By: #### HEMDF ### [address] Lymphocytes (Bld) [#/Vol] 0.9 1.0-4.3 10*3/uL Low 03-26 [facility] (72404) Comment: Performed By: #### HEMDF ### [address] Lymphocytes/100 WBC (Bld) 6.6 20.0-40.0 % Low 03-26 [facility] (15639) Comment: Performed By: #### HEMDF ### [address] MCH (RBC) [Entitic mass] 32.6 26.0-34.0 pg Normal 04-15 [facility] (24430) Comment: Performed By: #### HEMDF ### [address] MCHC (RBC) [Mass/Vol] 33.7 32.0-36.0 % Normal 04-15-20 19 [facility] (58703) Comment: Performed By: #### HEMDF ### [address] MCV (RBC) [Entitic vol] 96.9 79.0-98.0 fL Normal 2018 [facility] (57377) Comment: Performed By: #### HEMDF ### [address] Monocytes (Bld) [#/Vol] 0.7 0.0-0.8 10*3/uL Normal 2018 [facility] (15755) Comment: Performed By: #### HEMDF ### [address] [place] [address] Monocytes/100 WBC (Bld) 5.2 2.0-10.0 % Normal 2018 [facility] (99171) Comment: Performed By: #### HEMDF ### #[address] [place] [address] Platelet mean volume (Bld) 9.3 7.4-10.4 fL Normal [facility] [Entitic vol] (27058 ) Comment: Performed By: #### HEMDF ### [address] [place] [address] Platelets (Bld) [#/Vol] 204 140-440 10*3/uL Normal 2018 [facility] (74569) Comment: Performed By: #### HEMDF ### [address] [place] [address] RBC (Bld) [#/Vol] 4.02 3.80-5.20 10*6/uL Normal 04-15-2019 [facility] (88886) Comment: Performed By: #### HEMDF ### [address] [place] [address] WBC (Bld) [#/Vol] 13.5 3.6-10.7 10*3/uL High 04-15-2019 [facility] (14477) Comment: Performed By: #### HEMDF ### [address] [place] [address] hcg,urine qual on Beta HCG ( test) Negative Negative Normal 03-26 [facility] Ql (U) (81404) Comment: Result Comment: is the most common reason for HCG in urine, although choriocarcinoma, hydatidifor m mole, and certain nontropho- blastic malignancies also re sult in detectable urinary HCG levels. Sensitivity = 20mIU/ mL. Performed By: #### DANIELLE DOMINGUEZR, DRGA4 #### [facility] [address] [facility] [place] [place], [place] ethanol serum/plasma on 2019-04-15 Ethanol-Serum/Plasma < 0.010 0.000-0.010 Normal 04-15- 019 [facility] (15856) Comment: Result Comment: NOTE: This r esult is for medical treatment only. Analysis performed using non -forensic procedures. Performed By: #### CRP2, BMP 3, MG3, ETOH4 ####[facility] [facility] drugs of abuse on Amphetamines, Ur Positive Normal 04-15-2019 [facility] (55037) Comment: Performed By: #### DANIELLE DOMINGUEZ, DRGA4 ####[facility] [facility], [place] Phencyclidine (PCP), Ur Negative Normal 2018 [facility] (66489) Comment: Result Comment: The expected value for all of the drugs listed above is Negative. The following drugs or drug groups have been screened for by Immunoassay at the fo llowing thresholds: Amphetamine class (1000 ng/m L), Barbiturates (200 ng/mL), Benzodiazepines (200 ng/mL), Cocaine (300 ng/mL), Methadone (300 ng/mL), Opiat es (300 ng/mL), Oxycodone (100 ng/mL), and P CP (25 ng/mL). NOTE: These results are for medical treatment only. Analysis performed using non -forensic procedures. POSITIVE results are NOT con firmed by a more specific alternative method unless re quested. If confirmation is needed, request confirmation under separate order. Performed By: #### DANIELLE DOMINGUEZR, DRGA4 ####[facility] [id number] [facility] [place] Opiates, Ur Negative Normal 04-15-2019 [facility] (03572) Comment: Performed By: #### DANIELLE DOMINGUEZR, DRGA4 ####[facility] [id number] [facility] [place], [place] Cocaine, Ur Negative Normal 04-15-2019 [facility] (59227) Comment: Performed By: #### DANIELLE DOMINGUEZ, DRGA4 ####[address] [place] [address] Methadone, Ur Negative Normal 04-15-2019 [facility] (67295) Comment: Performed By: #### DANIELLE DOMINGUEZ, DRGA4 ####[address] [place] [address] Barbiturates, Ur Negative Normal 04-15-2019 [facility] (93132) Comment: Performed By: #### DANIELLE DOMINGUEZ, DRGA4 ####[address] [address] Benzodiazepines, Ur Positive Normal 04-15-2019 [facility] (87457) Comment: Performed By: #### DANIELLE DOMINGUEZR, DRGA4 ####[address] [address] Oxycodone/Oxymorphine,Ur Negative Normal 04-15 [facility] (45977) Comment: Performed By: #### DANIELLE DOMINGUEZ, DRGA4 ####[address] [address] cult./st. bacteria on 2019-04-15 CULT./ST. BACTERIA CULT./ST. BACTERIA --> Status: F Normal 04-15-2019 [facility] No growth at 3 days. System (12071) STAIN GRAM --> Status: F Moderate polymorphonuclear cells/lpf. Few mononuclear cells/lpf No organisms seen. Few mononuclear cells/lpf No organisms seen. Comment: Order Comment: Specimen sarah ected in O.R.; received on swab. Performed By: #### CS/Melody ACOSTA/ REECE ####[address] [address] CULT./ST. BACTERIA CULT./ST. BACTERIA --> Status: F Normal 04-15-2019 [facility] No growth at 3 days. System (34009) STAIN GRAM --> Status: F Many polymorphonuclear cells/lpf. Few mononuclear cells/lpf No organisms seen. Few mononuclear cells/lpf No organisms seen. Comment: Order Comment: Specimen sarah ected in O.R.; received on swab. Performed By: #### CS/DAVE, Melody/ REECE ####[employer] [id number] [place] [address] chlamydia and gc pcr panel on 2019-04-15 Chlamydia and GC PCR Chlamydia trachomatis PCR --> Status: F Abnormal 04-15-2019 [employer] Panel NOT Detected System (86566) Chlamydia trachomatis Nucleic Acid NOT Detected by DNA Amplification using the test companyid System. Culture is the only recommended test in medical-legal cases such as suspected child abuse or molestation. Chlamydia trachomatis Nucleic Acid NOT Detected by DNA Amplification using the Cepheid System. Culture is the only recommended test in medical-legal cases such as suspected child abuse or molestation. Neisseria gonorrhoeae PCR --> Status: F DETECTED Neisseria gonorrhoeae Nucleic Acid DETECTED by DNA Amplification using the Cepheid System. A positive test should be considered presumptive evidence of infection. Although the specificity of this assay is high , the Positive Predictive Value may be suboptimal in low prevalence populations (i.e. patients at low risk for infect ion). Positive results should be interpreted in conjunction with patient's risk profile and clinical symptoms. Additional testing on a new specimen may be warranted for some cases. This test should not be used as a test of cure since results may remain positive long after clinical cure. Culture is the only recommended test in medical-legal cases such as suspected child abuse or mol estation. Neisseria gonorrhoeae Nucleic Acid DETECTED by DNA Amplification using the Cepheid System. A positive test should be considered presumptive evidence of infection. Although the specificity of this assay is high , the Positive Predictive Value may be suboptimal in low prevalence populations (i.e. patients at low risk for infect ion). Positive results should be interpreted in conjunction with patient's risk profile and clinical symptoms. Additional testing on a new specimen may be warranted for some cases. This test should not be used as a test of cure since results may remain positive long after clinical cure. Culture is the only recommended test in medical-legal cases such as suspected child abuse or molestation. Comment: Order Comment: Specimen Sour ce Comment:Urine voided Performed By: #### CTNGP ### [address] [employer] [facility] [place], [place] c-reactive protein on 2019-04-15 CRP [Mass/Vol] 44.5 0.0-6.0 mg/L High 04-15-2019 [facility] (83661) Comment: Result Comment: . Performed By: #### CRP2, BMP 3, MG3, ETOH4 ####[place] [address] [address] [facility] [place] basic metabolic panel on 2019-04-15 Calcium [Mass/Vol] 8.8 8.4-10.4 mg/dL Normal 04-15-2019 [facility] (06534) Comment: Performed By: #### CRP2, BMP 3, MG3, ETOH4 ####[place] [address] [address] [place], [place] Glucose [Mass/Vol] 155 70-100 mg/dL High 04-15-2019 [facility] (16759) Comment: Performed By: #### CRP2, BMP 3, MG3, ETOH4 ####[facility] [place] [address] [address] [facility] [place], [place] Urea nitrogen [Mass/Vol] 6 7-20 mg/dL Low 04-15 [facility] (41487) Comment: Performed By: #### CRP2, BMP 3, MG3, ETOH4 ####[address] [place], [place] Anion gap [Moles/Vol] 8 Normal 04-15-20 19 [facility] (25746) Comment: Performed By: #### CRP2, BMP 3, MG3, ETOH4 ####[facility] [id number] [facility], [place] CO2 [Moles/Vol] 25 22-30 mmol/L Normal 04-15-2019 [facility] (62541) Comment: Performed By: #### CRP2, BMP 3, MG3, ETOH4 ####[facility] [id number] [facility] [place] Creatinine [Mass/Vol] 0.48 0.52-1.25 mg/dL Low 04-15-20 19 [facility] (34555) Comment: Performed By: #### CRP2, BMP 3, MG3, ETOH4 ####[employer] [place] [address] GFR/1.73 sq M > 60.0 >60 mL/min/{1.73_m2} Normal 9 [facility] predicted among Syst em (27769) blacks MDRD (S/P/Bld) [Vol rate/Area] Comment: Performed By: #### CRP2, BMP 3, MG3, ETOH4 ####[address] [place] GFR/1.73 sq M > 60.0 >60 mL/min/{1.73_m2} Normal 9 [facility] predicted among Syst em (94406) non-blacks MDRD (S/P/Bld) [Vol rate/Area] Comment: Result Comment: Source- MDRD equation with creatinine calibration to IDMS(NKDEP) eGFR not recommended for mireya g dose adjustment Performed By: #### CRP2, BMP 3, MG3, ETOH4 ####[address] [place], [place] Chloride [Moles/Vol] 104 98-107 mmol/L Normal 9 [facility] (14025) Comment: Performed By: #### CRP2, BMP 3, MG3, ETOH4 ####[address] [place] [address] Potassium [Moles/Vol] 4.1 3.5-5.1 mmol/L Normal 04-15-20 19 [facility] (36787) Comment: Performed By: #### CRP2, BMP 3, MG3, ETOH4 ####[address] [place] [address] Sodium [Moles/Vol] 137 135-145 mmol/L Normal 04-15-2019 [facility] [employer] (66147) Comment: Performed By: #### CRP2, BMP 3, MG3, ETOH4 ####[address] [place], [place] acute hepatitis panel on 2019-04-15 Hep C Antibody NOT DETECTED Not-Detected Normal 9 [facility] (15681) Comment: Result Comment: Patients wit h DETECTED Hepatitis C Ab results should have a new specimen submitted for supplemental t esting with a Hepatitis C Quantitative RNA assay (viral load), if clinically indicated. Performed By: #### HIV4, HEP AN, RPR ####[facility] [employer] [id number] [place], [place] Hep B Core IgM NOT DETECTED Not-Detected Normal 9 [facility] ([id number]) Comment: Performed By: #### HIV4, HEP AN, RPR ####[facility] [id number] [place], [place] Hep B Surface Ag NOT DETECTED Not-Detected Normal 019 [facility] ([id number]) Comment: Performed By: #### HIV4, HEP AN, RPR ####[facility] [id number] [place], [place] Hep A Virus Ab,IgM NOT DETECTED Not-Detected Normal 04-15 [facility] ([id number]) Comment: Performed By: #### HIV4, HEP AN, RPR ####[facility] [id number] [place], [place] ts gel on 2019-03-26 1 TS GEL ABO Group: Normal 04-14-2019 [facility] ([id number]) O Rh, Gel: POS Antibody Screen Gel: NEG Comment: Performed By: #### TSGL #### [facility] [id number] [place] [address] sed rate on 2019-03 Sed Rate 8 0-20 mm/h Normal 04-14-2019 [facility] ([id number]) Comment: Performed By: #### ESR #### [facility] [address] [place], [place] prothrombin time on 2019-04-14 INR Coag (PPP) [Relative 0.9 0.9-1.1 Normal 04-14 [facility] time] ([id number]) Comment: Result Comment: Recommended Anticoagulant Therapy: SEE BELOW ----- INR of 2.0 - 3.0 : - Prophylaxis of Venous Thro mbosis (high-risk surgery) - Treatment of Venous Thromb osis - Treatment of Pulmonary Emb olism (Includes tissue heart valves, Acute Myocardial Inf arction to prevent systemic embolism, Valvular Heart Dis ease, and Atrial Fibrillation) ----- INR of 2.5 - 3.5 : - Mechanical Prosthetic Valv es (high risk) - If oral anticoagulant ther apy is used to prevent Myocardial Infarction Performed By: #### HEMDF, PT , BMP3, CRP2, LFT3 #### [place] [address] [place], [place] PT Coag (PPP) [Time] 9.8 9.0-12.0 s Normal 9 [facility] ([id number]) Comment: Result Comment: . Performed By: #### HEMDF, PT , BMP3, CRP2, LFT3 #### [address] hepatic function on 2019-04-14 ALP [Catalytic activity/Vol] 75 38-126 U/L Normal 0 04-14-2019 [facility] ([id number]) Comment: Performed By: #### HEMDF, PT , BMP3, CRP2, LFT3 #### [address] ALT [Catalytic activity/Vol] 41 13-69 U/L Normal 0 04-14-2019 [facility] ([id number]) Comment: Performed By: #### HEMDF, PT , BMP3, CRP2, LFT3 #### [address] AST [Catalytic activity/Vol] 45 15-46 U/L Normal 0 04-14-2019 [facility] ([id number]) Comment: Performed By: #### HEMDF, PT , BMP3, CRP2, LFT3 #### [address] Bilirubin [Mass/Vol] 0.4 0.2-1.3 mg/dL Normal 9 [facility] ([id number]) Comment: Performed By: #### HEMDF, PT , BMP3, CRP2, LFT3 #### [address] [address] [address] [place], [place] Bilirubin.direct [Mass/Vol] 0.0 0.0-0.3 mg/dL Normal [facility] ([id number]) Comment: Performed By: #### HEMDF, PT , BMP3, CRP2, LFT3 #### [address] Protein [Mass/Vol] 5.7 6.3-8.2 g/dL Low 04-14-2019 [facility] ([id number]) Comment: Performed By: #### HEMDF, PT , BMP3, CRP2, LFT3 #### [address] Albumin [Mass/Vol] 3.0 3.5-5.0 g/dL Low 04-14-2019 [facility] ([id number]) Comment: Performed By: #### HEMDF, PT , BMP3, CRP2, LFT3 #### [address] [place], [place] hemogram w/ autodiff on 2019-04-14 Abs Baso Cnt 0.0 0.0-0.2 10*3/uL Normal 04-14-2019 [facility] ([id number]) Comment: Performed By: #### HEMDF, PT , BMP3, CRP2, LFT3 #### [address] Abs Neutrophile Cnt 9.3 1.8-7.0 10*3/uL High 04-14-2019 [facility] ([id number]) Comment: Performed By: #### HEMDF, PT , BMP3, CRP2, LFT3 #### [address] Basophils/100 WBC (Bld) 0.3 0.0-2.0 % Normal 2018 [facility] ([id number]) Comment: Performed By: #### HEMDF, PT , BMP3, CRP2, LFT3 #### [address] [address] [address] [place], [place] Eosinophils (Bld) [#/Vol] 0.0 0.0-0.5 10*3/uL Normal 03-26 [facility] ([id number]) Comment: Performed By: #### HEMDF, PT , BMP3, CRP2, LFT3 #### [address] Eosinophils/100 WBC (Bld) 0.3 1.0-6.0 % Low 03-26 [facility] ([id number]) Comment: Performed By: #### HEMDF, PT , BMP3, CRP2, LFT3 #### [address] Erythrocyte distribution 13.6 11.5-14.5 % Normal 04-14 [facility] width (RBC) [Ratio] ([id number]) Comment: Performed By: #### HEMDF, PT , BMP3, CRP2, LFT3 #### [address] [place], [place] Granulocytes/100 WBC (Bld) 82.0 40.0-80.0 % High [facility] ([id number]) Comment: Performed By: #### HEMDF, PT , BMP3, CRP2, LFT3 #### [address] Hematocrit (Bld) [Volume 36.1 35.0-47.0 % Normal 04-14 [facility] fraction] ([id number]) Comment: Performed By: #### HEMDF, PT , BMP3, CRP2, LFT3 #### [address] Hemoglobin (Bld) 12.1 11.7-16.0 g/dL Normal 04-14-2019 [facility] [Mass/Vol] ([id number]) Comment: Performed By: #### HEMDF, PT , BMP3, CRP2, LFT3 #### [address] Lymphocytes (Bld) [#/Vol] 1.1 1.0-4.3 10*3/uL Normal 03-26 [facility] (21787) Comment: Performed By: #### HEMDF, PT , BMP3, CRP2, LFT3 #### [address] [address] [place] [address] Lymphocytes/100 WBC (Bld) 9.6 20.0-40.0 % Low 03-26 [facility] (71079) Comment: Performed By: #### HEMDF, PT , BMP3, CRP2, LFT3 #### [address] [address] [address] [place], [place] MCH (RBC) [Entitic mass] 32.6 26.0-34.0 pg Normal 04-14 [facility] ([id number]) Comment: Performed By: #### HEMDF, PT , BMP3, CRP2, LFT3 #### [address] [address] [address] [place], [place] MCHC (RBC) [Mass/Vol] 33.6 32.0-36.0 % Normal 04-14-20 [facility] (70301) Comment: Performed By: #### HEMDF, PT , BMP3, CRP2, LFT3 #### [address] [address] [address] [place], [place] MCV (RBC) [Entitic vol] 96.9 79.0-98.0 fL Normal 2018 [facility] ([id number]) Comment: Performed By: #### HEMDF, PT , BMP3, CRP2, LFT3 #### [address] [address] [address] [place], [place] Monocytes (Bld) [#/Vol] 0.9 0.0-0.8 10*3/uL High 2018 [facility] ([id number]) Comment: Performed By: #### HEMDF, PT , BMP3, CRP2, LFT3 #### [address] [address] [place], [place] Monocytes/100 WBC (Bld) 7.8 2.0-10.0 % Normal 2018 [facility] (75381) Comment: Performed By: #### HEMDF, PT , BMP3, CRP2, LFT3 #### [address] [address] [address] [place], [place] Platelet mean volume (Bld) 9.0 7.4-10.4 fL Normal [facility] [Entitic vol] ([id number] ) Comment: Performed By: #### HEMDF, PT , BMP3, CRP2, LFT3 #### [place] [address] [address] [address] [place], [place] Platelets (Bld) [#/Vol] 172 140-440 10*3/uL Normal 2018 [facility] (34865) Comment: Performed By: #### HEMDF, PT , BMP3, CRP2, LFT3 #### [address] [address] [address] [place], [place] RBC (Bld) [#/Vol] 3.72 3.80-5.20 10*6/uL Low 04-14-2019 [facility] ([id number]) Comment: Performed By: #### HEMDF, PT , BMP3, CRP2, LFT3 #### [place] [address] [address] [address] [place], [place] WBC (Bld) [#/Vol] 11.4 3.6-10.7 10*3/uL High 04-14-2019 [facility] ([id number]) Comment: Performed By: #### HEMDF, PT , BMP3, CRP2, LFT3 #### [address] [address] [address] [place], [place] cr hand complete 3+ views left on 2019-04-14 CR Hand Complete 3+ Patient Name: JOSE BA rmal 04-14-2019 [facility] Views Left Bebe m[facility] ([id number]) Diagnostic Radiology Exam Date/Time 04/14/2019 12:56:29 EDT Exam CR Hand Complete 3+ Views Left Ordering Physician MD AUSTYN, SIMÓN Hoffman Accession Number [id number] CPT4 Codes 63818 () Reason For Exam Pain and swelling in hand, especially index finger Report LEFT HAND, 3 VIEWS: INDICATION: Pain and swelling of index finger COMPARISON: No previous studies are available for comparison . AP, lateral and oblique views of the left hand were obtained . There is no evidence of acute fracture, dislocation or sublu xation. The soft tissues are unremarkable. There is no evidence of r adio opaque foreign body or soft tissue gas formation. The interc arpal relationships appear well preserved. IMPRESSION: No acute osseous abnormality of the hand. Report Dictated on Final Dictated: 04/14/2019 1:20 pm Dictating Physician: DO MARLOW ALFRED Signed Date and Time: 04/14/2019 1:20 pm Signed by: DO MARLOW ALFRED Transcribed Date and Time: 04/14/2019 1:20 cr chest 1 view frontal on 2019-04-14 CR Chest 1 View Patient Name: JOSE BA 04-14-2019 [facility] ([id number]) Diagnostic Radiology Exam Date/Time 04/14/2019 13:44:29 EDT Exam CR Chest 1 View Frontal Ordering Physician [id number] CASTANO Accession Number [id number] CPT4 Codes 32329 () Reason For Exam preop Report CHEST SINGLE VIEW CLINICAL INFORMATION: Preoperative A frontal view of the chest was obtained. No acute pulmonary disease is noted. The cardiovascular silhouette is within no rmal limits. IMPRESSION: No acute pulmonary disease. Report Dictated on Final Dictated: 04/14/2019 1:55 pm Dictating Physician: MD REYES WILLIAM Signed Date and Time: 04/14/2019 1:55 pm Signed by: MD REYES WILLIAM Transcribed Date and Time: 04/14/2019 1:55 c-reactive protein on 2019-04-14 CRP [Mass/Vol] 17.3 0.0-6.0 mg/L High 04-14-2019 [facility] ([id number]) Comment: Result Comment: . Performed By: #### HEMDF, PT , BMP3, CRP2, LFT3 #### [facility] [address] basic metabolic panel on 2019-04-14 Calcium [Mass/Vol] 7.2 8.4-10.4 mg/dL Low 04-14-2019 [facility] ([id number]) Comment: Performed By: #### HEMDF, PT , BMP3, CRP2, LFT3 #### [address] [address] [address] [place], [place] Glucose [Mass/Vol] 85 70-100 mg/dL Normal 04-14-2019 [facility] ([id number]) Comment: Performed By: #### HEMDF, PT , BMP3, CRP2, LFT3 #### [address] [address] [place], [place] Urea nitrogen [Mass/Vol] 5 7-20 mg/dL Low 04-14 [facility] ([id number]) Comment: Performed By: #### HEMDF, PT , BMP3, CRP2, LFT3 #### [address] [address] [place], [place] Anion gap [Moles/Vol] 4 Normal 04-14-20 [facility] ([id number]) Comment: Performed By: #### HEMDF, PT , BMP3, CRP2, LFT3 #### [address] [address] [address] [place], [place] CO2 [Moles/Vol] 26 22-30 mmol/L Normal 04-14-2019 [facility] (85506) Comment: Performed By: #### HEMDF, PT , BMP3, CRP2, LFT3 #### [address] [address] [address] [place], [place] Creatinine [Mass/Vol] 0.42 0.52-1.25 mg/dL Low 04-14-20 19 [facility] (13370) Comment: Performed By: #### HEMDF, PT , BMP3, CRP2, LFT3 #### [address] [address] [place], [place] GFR/1.73 sq M > 60.0 >60 mL/min/{1.73_m2} Normal 9 [facility] predicted among Syst em (83267) blacks MDRD (S/P/Bld) [Vol rate/Area] Comment: Performed By: #### HEMDF, PT , BMP3, CRP2, LFT3 #### [facility] [address] [place], [place] GFR/1.73 sq M > 60.0 >60 mL/min/{1.73_m2} Normal 9 [facility] predicted among Syst em (83553) non-blacks MDRD (S/P/Bld) [Vol rate/Area] Comment: Result Comment: Source- MDRD equation with creatinine calibration to IDMS(NKDEP) eGFR not recommended for mireya g dose adjustment Performed By: #### HEMDF, PT , BMP3, CRP2, LFT3 #### [facility] [address] [place], [place] Potassium [Moles/Vol] 3.4 3.5-5.1 mmol/L Low 04-14-20 19 [facility] ([id number]) Comment: Performed By: #### HEMDF, PT , BMP3, CRP2, LFT3 #### [facility] [address] [place], [place] Chloride [Moles/Vol] 107 98-107 mmol/L Normal 9 [facility] (18699) Comment: Performed By: #### HEMDF, PT , BMP3, CRP2, LFT3 #### [facility] [address] [place] [address] [address] [place], [place] Sodium [Moles/Vol] 137 135-145 mmol/L Normal 04-14-2019 [facility] (71698) Comment: Performed By: #### HEMDF, PT , BMP3, CRP2, LFT3 #### [facility] [address] [place], [place] add on test from his on 2019-04-14 Add on test from HIS Accepted Normal 9 [facility] ([id number]) Comment: Result Comment: Specimen venice ilable & acceptable for analysis. Performed By: #### ADDON ### [facility] [address] [place] [address] Add on test from HIS Accepted Normal 9 [facility] ([id number]) Comment: Result Comment: Specimen venice ilable & acceptable for analysis. Performed By: #### DANIELLE DOMINGUEZ GUR, DRGA4 #### [facility] [address] [place] [address] Vital Signs Vital Sign Description Value / Unit Date Location The following section is limited to 5 en tries per type and includes entries from the following time range: 20200627 - 4. Body Temperature 99.1 [degF] 06-28-2020 [facility] (21032) Body Temperature 98.6 [degF] 06-27-2020 [facility] (68772) Body weight 64.41 kg 06-28-2020 [facility] (00091) Body weight 62.14 kg 06-27-2020 [facility] (95544) BP Diastolic 84 mm[Hg] 06-28-2020 [facility] (45888) BP Diastolic 88 mm[Hg] 06-27-2020 [facility] (88495) BP Systolic 120 mm[Hg] 06-28-2020 [facility] (50085) BP Systolic 124 mm[Hg] 06-27-2020 [facility] (45357) Pulse (Heart Rate) 62 /min 06-28-2020 [facility] (29806) Pulse (Heart Rate) 103 /min 06-27-2020 [facility] (00884) Respiratory Rate 16 /min 06-28-2020 [facility] (47385) Respiratory Rate 16 /min 06-27-2020 [facility] (16245) Encounters Date Type Reason Provider Location 07-31-2020 - Patient encounter Contact with and Lesvia (Ricardo) [facility] 07-31-2020 procedure (suspected) exposure Alex to other viral communicable diseases Comment: Suspected COVID-19 virus inf ection (Primary Dx) 06-28-2020 - Patient encounter Acute left Elsa Marin) [facility] 06-28-2020 procedure otitis media [place] Alex Comment: Acute otitis media, left (Pr imary Dx); Pruritus; Screening for HIV (human imm unodeficiency virus) 06-27-2020 - Patient encounter Itching of skin Larry Anne) [facility] 06-27-2020 procedure Workman Care Comment: Pruritus (Primary Dx); Acute otitis media, left 07-31-2020 - Telemedicine Lesvia (Professor Of Religious Studies) [facility] 07-31-2020 consultation with patient 07-02-2020 - Telephone encounter Michael Schmid [facility] 07-02-2020 Alex Comment: Results Procedures Procedure Name Date Provider Location Microscopic examination of 04-20-2019 - [facility] blood, culture 04-20-2019 ([id number]) Comment: Order Comment: Specimen Sour ce Comment:Blood Performed By: #### HEMDF, PT , BMP3, CRP2, LFT3 #### [address] [address] Plan of Treatment Plan Description Date Location ANNUAL PCP TEAM ANNUAL PCP TEAM CHRONIC 07-31-2021 [facility] CHRONIC DISEASE VISIT DISEASE VISIT (14977) ANNUAL PCP TEAM ANNUAL PCP TEAM CHRONIC 06-28-2021 - [facility] CHRONIC DISEASE VISIT DISEASE VISIT 06-28-2021 (60596) DTAP,TDAP,TD (1 - DTAP,TDAP,TD (1 - Tdap) 06-28-2021 - [facility] Tdap) 06-28-2021 (60131) Comment: Postponed from 2005 (D eclined at this time) ANNUAL PCP TEAM CHRONIC ANNUAL PCP TEAM CHRONIC 04-23-2021 [facility] DISEASE VISIT DISEASE VISIT (68681) INFLUENZA (#1) INFLUENZA (#1) 2020 - [facility] 06-25-2020 (60337) HPV TESTING HPV TESTING 2016 - [facility] 2016 (09524) PAP TESTING PAP TESTING 2007 - [facility] 2007 (74787) ONE PNEUMOVAX PRIOR TO ONE PNEUMOVAX PRIOR TO 2005 - [facility] AGE 66 AGE 66 2005 (44879) DTAP,TDAP,TD (1 - Tdap) DTAP,TDAP,TD (1 - Tdap) 2005 [facility] (84877) BP CONTROLLED (<130/80) BP CONTROLLED (<130/80) 2004 - [facility] 2004 (39224) HEPATITIS C SCREENING HEPATITIS C SCREENING 2004 - [facility] 2004 (09786) HIV SCREENING HIV SCREENING 2004 - [facility] 2004 (19542) CBC CBC Lab Routine Pruritus [facility] Screening for HIV (human (76581) immunodeficiency virus) 06/28/2020 10:53 AM EDT COMP METABOLIC PANEL COMP METABOLIC PANEL Lab [facility] Routine Pruritus (10837) Screening for HIV (human immunodeficiency virus) 06/28/2020 10:53 AM EDT HIV 1 2 HIV 1 2 COMBO(AG/AB),[facility] COMBO(AG/AB),WITH REFLEX REFLEX TO DIFFERENTIATION (14482) TO DIFFERENTIATION Lab Routine Screening for HIV (human immunodeficiency virus) 06/28/2020 10:53 AM EDT TSH BLD TSH BLD Lab Routine [facility]ic Pruritus Screening for (33162) HIV (human immunodeficiency virus) 06/28/2020 10:53 AM EDT no information [facility] (51781) Payers Payer Name Policy Number Location [facility] [employer] [facility] (44 195) [employer] [employer] [id number] [facility] (44 195) The following information is from the original human readable contentNo Payer Records FoundNo Payer Records FoundNo Payer Records Found Social History Type Social History Date Location Description Tobacco smoking status Current every day smoker 06-27-2020 - [facility] NHIS 06-28-2020 (74387) History of tobacco use Smoker 11-25-2014 [facility] (93219) Cigarettes smoked 06-27-2020 - [facility] current (pack per day) 06-28-2020 (95299) - Reported Tobacco use and Never used 06-27-2020 - [facility] exposure 06-28-2020 (89251) Alcohol intake Current drinker of 06-27-2020 - [facility] sharmila alcohol (finding) 06-28-2020 (52055) Alcohol Comment h/o alcoholism 09-14-2018 - [facility] 09-14-2018 (02392) Sex Assigned At Not on file [facility] (85045) Exposure to SARS-CoV-2 Not sure [facility] (event) (53699) Exposure to SARS-CoV-2 Yes [facility] (event) (85913) The following information is from the original human readable contentNo Social History Records FoundNo Social History Records FoundNo Social History Records Found Summary Purpose Family History No Family History Records FoundNo Family History Records Found Advance Directives No Advanced Directives Records FoundNo Advanced Directives Records Found Reason for Referral Status Reason Specialty Diagnoses / Referred By Referred To Procedures Contact Contact Ref Not PCP Requested Dermatology Diagnoses Pruritus Workman, Required Referral Procedures CONSULT TO DERMATOLOGY Larry Anne) [address] [place] [address] Status Reason Specialty Diagnoses / Referred By Referred To Procedures Contact Contact Authorized PCP Requested Ent - Diagnoses Acute otitis media, left Pruritus Bursley, Referral Otolaryngology Procedures CONSULT TO ENT NEW PATIENT VISIT LEVEL 5 Elsa Marin) [address] [place] [address] Instructions Patient InstructionsLarry Aponte) - 06/27/2020 2:53 PM EDT-education material provided -use medication as prescribed -f/u if no better in 3-5 days -discussed proper ear hygiene -discussed prevention documented in this encounterPatient InstructionsLesvia Willett) - 07/31/2020 1:43 PM EDT Separate yourself from other people in your home, this is known as home isolation. Stay away from others: As much as possible, you should stay in a specific ?sick room? and away from other people in your home. Use a separate bathroom, if available. Limit contact with pets & animals: You should restrict contact with pets and other animals, justlike you would around other people. Although there have not been reports of pets or other animals becoming sick with COVID-19, it is still recommended that people with the virus limit contact with animals until more information is known. When possible, have another member of your household care for your animals while you are sick with COVID-19. If you must care for your pet or be around animals while you are sick, wash your hands before and after you interact with them. documented in this encounter History of Present Illness Larry Aponte) - 06/27/2020 2:55 PM EDT Visit Date: June 27, 2020 Patient Name: Ms.Marissa Mohini Ba Date of : 1985 MRN/E #: [id number] Chief Complaint Patient presents with: Recheck: visit 06/01/20- LEFT ear fluid in ear ongoing with constant itching all over History of present illness Jose Ba is a 35 year old female. Reports that she has itching with no rash for the past 4 months. Has been previously treated with Permethrin and Prednisone with no relief of symptoms. States rash is affecting her job and she scratches all day long. Denies having any scratching when she sleeps and denies ever having any rash. Also has complaints of left ear pain and feels like it is draining during the night when she lays on her side. Ear pain has been present for 3 days. Denies having any fevers, chills, or difficulty hearing. PAIN EVALUATION No data found in the last 1 encounters. ALLERGIES No Known Allergies PAST MEDICAL HISTORY Diagnosis Date ? Chronic otitis media after insertion of tympanic ventilation tube, right Hearing loss, right ? Eating disorder 07/22/2018 bulimia x 12 years. ? History of mood disorder ? Hypertension, essential 07/22/2018 ? Substance use disorder 07/22/2018 PAST SURGICAL HISTORY Procedure Laterality Date ? PAST SURGICAL HISTORY OF 09/30/2015 ? PAST SURGICAL HISTORY OF 05/24/2009 Social History Tobacco Use ? Smoking status: Current Every Day Smoker Packs/day: 1.00 Years: 19.00 Pack years: 19.00 Last attempt to quit: 11/25/2014 Years since quittin.5 ? Smokeless tobacco: Never Used Substance Use Topics ? Alcohol use: Yes Alcohol/week: 35.0 standard drinks Types: 14 Cans of Beer (12oz) per week Comment: h/o alcoholism ? Drug use: Yes Types: Amphetamines, Crack Cocaine, Cocaine, Opiates Comment: none for 2 months. FAMILY HISTORY Adopted: Yes Review of Systems Constitutional: Negative for chills, fever and malaise/fatigue. HENT: Positive for ear discharge and ear pain. Negative for congestion and sore throat. Skin: Positive for itching. Negative for rash. Physical Exam Constitutional: She is well-developed, well-nourished, and in no distress. HENT: Right Ear: Hearing, tympanic membrane, external ear and ear canal normal. Left Ear: Hearing normal. There is tenderness. No drainage or swelling. Ears: Pulmonary/Chest: Effort normal. Skin: Skin is warm and dry. No rash noted. No erythema. Vitals reviewed. BP 124/88 Pulse 103 Temp (Src) 98.6 (Left Tympanic) Resp 16 Wt 137 lb (62.1kg) LMP 07/17/2018 A/P 1. Pruritus - CONSULT TO DERMATOLOGY 2. Acute otitis media, left - amoxicillin-clavulanic acid (AUGMENTIN) 875-125 mg per tablet; Take 1 tablet by mouth twice daily for 10 days. Dispense: 20 tablet; Refill: 0 Larry Aponte APRN.RICARDO Discussed above plan with patient. Pt agreeable with above plan. documented in this encounterElsa Smith) - 06/28/2020 10:02 AM EDT Chief Complaint Patient presents with: Ear Problem: left ear still infected and draining and painful going on for past 2 months, pt states itching terrible everywhere nothing has helped. HPI Jose Ba is a 35 year old female who presents here today for Above Complaints.. Patient with left ear infection which has been present for the last month and draining for the last 10 days. Evaluated in UC yesterday and was started on augmentin, which she has not picked up. Statingshe has been on augmentin recently, but that was for dental infection not ear infection. Treated with ofloxacin ear drops for otitis externa about a month ago without improvement in her symptoms. Also complaining of generalized itching without rash over the last 6 weeks. Has not changed detergents, creams, OTC medications. Treated with zyrtec previously without relief. Denies rash, illicit druguse. Admits to occasional night sweats without fever or weight loss. Past medical history, appointments, medications, allergies reviewed. Previous Medical History PAST MEDICAL HISTORY Diagnosis Date ? Chronic otitis media after insertion of tympanic ventilation tube, right Hearing loss, right ? Eating disorder 07/22/2018 bulimia x 12 years. ? History of mood disorder ? Hypertension, essential 07/22/2018 ? Substance use disorder 07/22/2018 Previous Surgical History PAST SURGICAL HISTORY Procedure Laterality Date ? PAST SURGICAL HISTORY OF 09/30/2015 ? PAST SURGICAL HISTORY OF 05/24/2009 Family History FAMILY HISTORY Adopted: Yes Patient Allergies ALLERGIES No Known Allergies Current Medications Current Outpatient Medications on File Prior to Visit Medication Sig ? pantoprazole DR (PROTONIX) 40 mg tablet Take 1 tablet by mouth daily before breakfast. Take on empty stomach, 1/2 hr before meal. ? LORazepam (ATIVAN) 0.5 mg Take 0.5 mg by mouth three times daily as needed. ? amoxicillin-clavulanic acid (AUGMENTIN) 875-125 mg per tablet Take 1 tablet by mouth twice daily for 10 days. (Patient not taking: Reported on 06/28/2020 ) ? cetirizine (ZYRTEC) 10 mg tablet Take 1 tablet by mouth once daily. (Patient not taking: Reported on 06/27/2020 ) ? FLUoxetine (PROZAC) 20 mg capsule Take 1 capsule by mouth once daily. ? ondansetron orally disintegrating (ZOFRAN ODT) 4 mg disintegrating tablet Take 1 tablet by mouth every 6 hours as needed for Nausea/Vomiting. ? hydrOXYzine HCl (ATARAX) 25 mg tablet Take 1 tablet by mouth every 6 hours as needed for Itching/Rash. (Patient not taking: Reported on 06/27/2020 ) No current facility-administered medications on file prior to visit. Social History Social History Tobacco Use ? Smoking status: Current Every Day Smoker Packs/day: 1.00 Years: 19.00 Pack years: 19.00 Last attempt to quit: 11/25/2014 Years since quittin.5 ? Smokeless tobacco: Never Used Substance Use Topics ? Alcohol use: Yes Alcohol/week: 35.0 standard drinks Types: 14 Cans of Beer (12oz) per week Comment: h/o alcoholism ? Drug use: Yes Types: Amphetamines, Crack Cocaine, Cocaine, Opiates Comment: none for 2 months. Review of Symptoms REVIEW OF SYSTEMS See HPI EXAM: BP 120/84 (BP Site: Left Arm, BP Position: Sitting, BP Cuff Size: Regular Adult) Pulse 62 Temp 37.3 ?C (99.1 ?F) Resp 16 Wt 64.4 kg (142 lb) LMP 07/17/2018 (Approximate) BMI 27.73 kg/m? General Appearance: Well appearing, alert, in no acute distress, well-hydrated, well nourished. Scratching repeatedly during exam. Skin: Skin color, texture, turgor normal, no suspicious rashes or lesions. Ears: Right ear canal and TM normal. Left TM not visible due to canal swelling with copious purulentdrainage. Health Maintenance List HEPATITIS C SCREENING due on 2004 HIV SCREENING due on 2004 BP CONTROLLED (<130/80) due on 2004 ONE PNEUMOVAX PRIOR TO AGE 65 due on 2005 PAP TESTING due on 2007 HPV TESTING due on 2016 INFLUENZA(1) due on 06/25/2020 DTAP,TDAP,TD(1 - Tdap) due on 06/28/2021 ANNUAL PCP TEAM CHRONIC DISEASE VISIT due on 04/23/2021 MENINGOCOCCAL CONJUGATE Completed ASSESSMENT/PLAN: 1. Acute otitis media, left - ICD9: 382.9, ICD10: H66.92 (primary diagnosis) Start augmentin as prescribed. Add ciprodex drops to be used BID as directed. Possible perforation of TM. If not improving with abx and drops will have her follow up with ENT for further evaluation andtreatment. - CONSULT TO ENT - AMOXICILLIN 875 MG-POTASSIUM CLAVULANATE 125 MG TABLET - CIPROFLOXACIN 0.3 %-DEXAMETHASONE 0.1 % EAR DROPS,SUSPENSION 2. Pruritus - ICD9: 698.9, ICD10: L29.9 Start H1 and H2 gamaliel and will refer to ENT/behavioral health counselor for evaluation and testing. Obtain labs as ordered. Call if not improving symptoms in 2-3 days. - CONSULT TO ENT - LORATADINE 10 MG TABLET - FAMOTIDINE 20 MG TABLET - CBC - COMP METABOLIC PANEL - TSH BLD 3. Screening for HIV (human immunodeficiency virus) - ICD9: V73.89, ICD10: Z11.4 - CBC - COMP METABOLIC PANEL - TSH BLD - HIV 1 2 COMBO(AG/AB),WITH REFLEX TO DIFFERENTIATION Elsa Smith MD documented in this encounterLesvia Willett (Professor Of Religious Studies) - 07/31/2020 1:06 PM EDT This Team Access Model visit is a phone encounter. It required patient-provider interaction for the medical decision making as documented below. Patient agrees to the visit: Yes Patient Location: [place] CC: Patient presents with: Covid19 Concern HPI: Jose Ba is a 35 year old female who is contacted today for a phone visit. This is an established patient of Dr. Michael Fabian MD. Respiratory symptoms present for 5 days MAJOR COVID-19 SYMPTOMS: *Coughing: Yes *Shortness of breath: Yes *Difficulty breathing: No MINOR COVID-19 SYMPTOMS: Fever: (Temp 100.4F or greater) No Chills: No Headache: Yes Acute loss of smell or taste: No Sore throat: No Muscle aches: Yes Vomiting: No Diarrhea: No Other Associated symptoms: sneezing. Treatments tried include nothing so far. Has the patient had any ill contacts? Yes Has the patient had contact with anyone confirmed or a probable case with COVID- 19 infection in the last 14 days? Yes co-worker tested positive but unsure if they were symptomatic. Last exposure would have beenMonday 07/23 Does the patient have family with confirmed COVID-19 infection: No Has the patient traveled or resided in an area with sustained or ongoing community transmission of COVID-19? Unsure History of asthma, frequent episodes of bronchitis, chronic bronchitis, bronchiectasis or COPD: No Smoker: Yes 1 pack every 3 days Seasonal/environmental allergies: Yes ROS General: Decreased appetite: No Signs of dehydration (low fluid intake or voiding, diarrhea, dry mucus membranes): No Decreased level of consciousness: No PAST MEDICAL HISTORY Diagnosis Date ? Chronic otitis media after insertion of tympanic ventilation tube, right Hearing loss, right ? Eating disorder 07/22/2018 bulimia x 12 years. ? History of mood disorder ? Hypertension, essential 07/22/2018 ? Substance use disorder 07/22/2018 PAST SURGICAL HISTORY Procedure Laterality Date ? PAST SURGICAL HISTORY OF 09/30/2015 ? PAST SURGICAL HISTORY OF 05/24/2009 ALLERGIES Patient has no known allergies. MEDICATIONS loratadine (CLARITIN) 10 mg tablet Take 1 tablet by mouth once daily. LORazepam (ATIVAN) 0.5 mg Take 0.5 mg by mouth three times daily as needed. cetirizine (ZYRTEC) 10 mg tablet Take 1 tablet by mouth once daily. FLUoxetine (PROZAC) 20 mg capsule Take 1 capsule by mouth once daily. ondansetron orally disintegrating (ZOFRAN ODT) 4 mg disintegrating tablet Take 1 tablet by mouth every 6 hours as needed for Nausea/Vomiting. hydrOXYzine HCl (ATARAX) 25 mg tablet Take 1 tablet by mouth every 6 hours as needed for Itching/Rash. pantoprazole DR (PROTONIX) 40 mg tablet Take 1 tablet by mouth daily before breakfast. Take on emptystomach, 1/2 hr before meal. FAMILY HISTORY Adopted: Yes Social History Tobacco Use ? Smoking status: Current Every Day Smoker Packs/day: 1.00 Years: 19.00 Pack years: 19.00 Last attempt to quit: 11/25/2014 Years since quittin.6 ? Smokeless tobacco: Never Used Substance Use Topics ? Alcohol use: Yes Alcohol/week: 35.0 standard drinks Types: 14 Cans of Beer (12oz) per week Comment: h/o alcoholism ? Drug use: Yes Types: Amphetamines, Crack Cocaine, Cocaine, Opiates Comment: none for 2 months. Exam Deferred physical exam as visit was completed over the phone Frontal sinus tenderness by self palpation;No Maxillary sinus tenderness by self palpation :No Tender cervical adenopathy by self palpation :No Respiratory distress :No Coughing noted :No Audible wheezing noted :No PATIENT'S HIGH RISK CATEGORY ASSESSMENT: No high risk factors This patient encounter involved the screening or treatment of novel coronavirus infection (COVID-19). ASSESSMENT/PLAN: 1. Suspected COVID-19 virus infection - ICD9: V01.79, ICD10: Z20.828 appears to have COVID-19 infection, is low risk and symptoms are mild or improving. Recommend COVID-19 testing. patient does not have transportation, needs order sent to [facility]. Advised to self quarantineuntil further notice - Discussed viral etiology and rationale for treatment. - Symptomatic treatment with prn analgesia. The patient may also use OTC cough/cold medicines as needed. Supportive care with fluids and rest. - Follow up in 5 to 7 days if symptoms persist or sooner if worsening of symptoms Prescription instructions reviewed with patient as applicable. Potential red flag symptoms discussedwith the patient. Reviewed appropriate action plan to take if red flag symptoms occur. Patient agreeable to treatment plan. During this patient visit I have spent approximately 15 minutes in counseling regarding medications and testing. Lesvia Willett APRN.CNP documented in this encounter Assessments Diagnosis Pruritus - Primary Unspecified pruritic disorder Acute otitis media, left Unspecified otitis media Diagnosis Acute otitis media, left - Primary Unspecified otitis media Pruritus Unspecified pruritic disorder Screening for HIV (human immunodeficienc y virus) Special screening examination for other specified viral diseases Diagnosis Suspected COVID-19 virus infection - Lynnette verónica Additional Source Comments FOR RECORDS PERTAINING TO PATIENTS WHO ARE OR HAVE BEEN ENROLLED IN A CHEMICAL DEPENDENCY/SUBSTANCE ABUSE PROGRAM, SOME INFORMATION MAY BE OMITTED. This clinical summary was aggregated from multiple sources. Caution should be exercised in using it in the provision of clinical care. This summary normalizes information from multiple sources, and as a consequence, information in this document may materially changethe coding, format and clinical context of patient data. In addition, data may be omittedin some cases. CLINICAL DECISIONS SHOULD BE BASED ON THE PRIMARY CLINICAL RECORDS. [facility] provides no warranty or guarantee of the accuracy or completeness of information in this document. UNRECOGNIZED CONTENT PROVIDED BELOW FOR UNRECOGNIZED SECTION INFORMATION SOURCE DATE CREATED AUTHOR AUTHOR'S ORGANIZATIO N 05/03/2019 [facility] DATE CREATED AUTHOR AUTHOR'S ORGANIZATIO N 08/06/2020 [facility] UNRECOGNIZED CONTENT PROVIDED BELOW FOR UNRECOGNIZED SECTION Source Comments In the event this information is protected by the Federal Confidentiality of Alcohol and Drug Abuse Patient Records regulations: The Federal rules restrict any use of the information to criminally investigate or prosecute any alcohol or drug abuse patient.[facility] Center[facility] the event this information is protected by the Federal Confidentiality of Alcohol and Drug Abuse Patient Records regulations: The Federal rules restrict any use of the information to criminally investigate or prosecute any alcohol or drug abuse patient.[facility] CenterIn the event this information is protected by the Federal Confidentiality of Alcohol and Drug Abuse Patient Records regulations: The Federal rules restrict any use of the information to criminally investigate or prosecute any alcohol or drug abuse patient.[facility] Center[facility] the event this information is protected by the Federal Confidentiality of Alcohol and Drug Abuse Patient Records regulations: The Federal rules restrict any use of the information to criminally investigate or prosecute any alcohol or drug abuse patient.[facility] UNRECOGNIZED CONTENT PROVIDED BELOW FOR UNRECOGNIZED SECTION Reason for Visit Reason Comments Recheck visit 06/01/20- LEFT ear fl uid in ear ongoing with constant itching all over Reason Comments Ear Problem left ear still infected and draining and painful going on for past 2 months, pt states itching te rrible everywhere nothing has helped. Reason Onset Date Comments Results 07/02/2020 Reason Comments Covid19 Concern UNRECOGNIZED CONTENT PROVIDED BELOW FOR UNRECOGNIZED SECTION Miscellaneous Notes Telephone Encounter - Modesta Nieto (Shira)SHIRA - 07/02/2020 2:02 PM EDTMessage sent via my chart. elephone Encounter - Modesta Nieto (Shira)SHIRA - 07/02/2020 2:02 PM EDT----- Message from Elsa Marin) Luis sent at 07/02/2020 12:59 PM EDT ----- HIV screening negative. Thyroid studies in normal range. Glucose level slightly low at 62. May be due to fasting prior to labs. Other labs unremarkable. Continue abx and ear drops as prescribed and f/u with ENT. documented in this encounter
--- OUTSIDE RECORDS SUMMARY | 2020-08-06 17:53 | XMS RPT_ITS | CCD ---
:1985 External Reference #:[id number] Author Organization [facility] Team Providers Name Role Phone Michael Fabian Primary Care Provider Medications Medication Name Sig Date Prescriber Location Amoxicillin / amoxicillin-cla 06-27-2020 - Elsa Marin) [facility] Clavulanate vulanic acid 07-08-2020 Luis ([id number]) (AUGMENTIN) 875-125 mg per tablet Indications: Acute otitis media, left Take 1 tablet by mouth twice daily for 10 days. 20 tablet 0 06/28/2020 07/08/2020 Active Comment: Take 1 tablet by mouth twice daily for 10 days. Cetirizine cetirizine (ZYRTEC) 10 05-14-2020 Darron VillalobosTier Lift Operator C [facility] mg tablet Indications: Global Product Manager) Richar (4419 5) Rash Take 1 tablet by mouth once daily. 30 tablet 0 05/14/2020 Active Comment: Take 1 tablet by mouth once daily. Ciprofloxacin / ciprofloxacin-dexamethasone 06-28-2020 - Francois Corbett Dexamethasone (CIPRODEX) 0.3-0.1 % otic 07-05-2020 () Luis Oliver linic suspension Indications: Acute (68875) otitis media, left Use 4 Drops in the left ear twice daily for 7 days. 7.5 mL 0 06/28/2020 07/05/2020 Active Comment: Use 4 Drops in the left ear twice daily for 7 days. Famotidine famotidine (PEPCID) 06-28-2020 - Elsa Marin) [facility] 20 mg tablet 07-28-2020 Luis (12376) Indications: Pruritus Take 1 tablet by mouth twice daily. 60 tablet 0 06/28/2020 07/28/2020 Active Comment: Take 1 tablet by mouth twice daily. FLUoxetine FLUoxetine (PROZAC) 20 04-23-2020 Simón Lopez [facility] mg capsule Indications: (441 95) SANDY (generalized anxiety disorder) , Bulimia , Anorexia nervosa with bulimia Take 1 capsule by mouth once daily. 30 capsule 2 04/23/2020 Active Comment: Take 1 capsule by mouth once daily. hydrOXYzine hydrOXYzine HCl (ATARAX) 04-23-[address] [facility] 25 mg tablet (40967) Indications: SANDY (generalized anxiety disorder) Take 1 tablet by mouth every 6 hours as needed for Itching/Rash. 30 tablet 3 04/23/2020 Active Comment: Take 1 tablet by mouth every 6 hours as needed for Itching/Rash. Loratadine loratadine (CLARITIN) 06-28-2020 Elsa Marin) [facility] 10 mg tablet Porfirioley (75129) Indications: Pruritus Take 1 tablet by mouth once daily. 30 tablet 0 06/28/2020 Active Comment: Take 1 tablet by mouth once daily. LORazepam LORazepam (ATIVAN) 0.5 mg 03-20-2020 [facility] Provider [facility] (83411) Take 0.5 mg by mouth three times daily as needed. 0 03/20/2020 Active Comment: Take 0.5 mg by mouth three t imes daily as needed. Ondansetron ondansetron orally 04-23-2020 Simón Lopez [facility] disintegrating (ZOFRAN (4419 5) ODT) 4 mg disintegrating tablet Indications: Nausea , Diarrhea, unspecified type Take 1 tablet by mouth every 6 hours as needed for Nausea/Vomiting. 30 tablet 2 04/23/2020 Active Comment: Take 1 tablet by mouth every 6 hours as needed for Nausea/Vomiting. pantoprazole pantoprazole 04-23-2020 Simón Lopez [facility] (PROTONIX) 40 mg tablet (441 95) Take 1 tablet by mouth daily before breakfast. Take on empty stomach, 1/2 hr before meal. 30 tablet 2 04/23/2020 Active Comment: Take 1 tablet by mouth daily before breakfast. Take on empty stomach, 1/2 hr before meal. Problems Active Problems Category Problem Name Status Date Location Essential hypertension Essential hypertension Active 07-22-20 18 - [facility] (00355) Immunizations and Contact with and Active Clereplaced by [facility] screening for infectious (suspected) exposure (13764) disease to other viral communicable diseases Miscellaneous mental Eating disorder Active 07-22-2018 - [facility] health disorders (37756) Other inflammatory Itching of skin Active [facility] condition of skin (37011) Substance-related Substance misuse Active 07-22-2018 - [facility] disorders behavior (95903) Unclassified Patient encounter Active [facility] status (37813) Past or Other Problems Category Problem Name Status Date Location Otitis media and Acute left otitis Com[facility]-14-2018 [facility] related conditions media (00678) Results Result Name Value Range Unit Interpretation Flag Date [facility]05 [facility] Telephone (INTMWS) Normal 08-05-2020 [facility] JOSE BA ([id number]) 1985 F [facility] Time Provider Department (44743) 08/05/20 MICHAEL FABIAN INTWS During your visit today, we recorded the following informati on about you: Allison Mariscal LPN 08/05/2020 9:24 AM Signed rec'd fax results from [facility] of pts 0 COVID 19 HOLLY test. Results are note detected Allison Mariscal LPN 08/05/2020 10:19 AM Signed Pt has reviewed this via my chart. Allergies As of Date: 08/05/2020 (No Known Allergies) Date Reviewed: 06/28/2020 Reviewed by: Modesta Mc (Head Animal Trainer) SHIRA Nieto - Fully Assessed Reason for Visit: Results [95] Order(s):2019 CORONAVIRUS [SQCOVID] Order #: [id number] Prescriptions as of 08/05/2020 Sig: LORATADINE 10 [...] 08/05/20 progress on 2020-07 PROGRESS HNO ID: [id number] [place] 07-31-2020 [facility] Author: Lesvia (Ricardo) Sebastian Corbett ([id number]) Service: ? Author Type: Nurse Practitioner Type: Progress Notes Filed: 07/31/2020 1:54 PM Note Text: This Team Access Model visit is a phone encounter. It requir ed patient-provider interaction for the medical decision making as documented below. Patient agrees to the visit: Yes Patient Location: [place] CC: Patient presents with: Covid19 Concern HPI: [...] not have transportation, needs order sent to [facility]. Advised to self cyndi rantine until [...] regarding medications and testing. Lesvia Willett APRN.RICARDO [facility]02 [facility] (F[facility]) Normal 07-02-2020 [facility] JOSE BA ([id number]) 1985 [facility] Date Time Provider Department (64555) 07/02/20 MICHAEL FABIAN During your visit today, we recorded the following informati on about you: Modesta Nieto LPN, SAIL REPAIRER 07/02/2020 2:02 PM Signed ----- Message from [...] TSH Qn 1.700 0.270-4.200 uU/mL Normal 06-28-2020 [facility] (40534) Comment: Result Comment: If the patie nt [...] et al. 2017 Guide lines of the [place] [employer] Association for the Diagnosis and Management of Thyroid Disease during and the . Thyroid, 2017:27:3:315-389. Performed By: #### TSH, CMP, CBC, HIV12C ####[facility] [address] [place], [place] [phone] progress on 2020-06 PROGRESS HNO ID: [id number] Normal 06-28-2020 [facility] Author: Elsa Marin) Luis Corbett (73773) Service: ? Author Type: Physician Type: Progress [...] and H2 gamaliel and will refer to ENT/debeaker for evaluation and testing. Obtain labs as [...] COMBO(AG/AB),WITH REFLEX TO DIFFERENTIATION Elsa Smith MD [id number] ag +[id number] ab on 2020-06-28 HIV 12 Ag/Ab Non Reactive Non Reactive Normal 06-28-2019 [facility] (92934) Comment: Performed By: #### TSH, CMP, CBC, HIV12C ####[facility] [address] [place], [place] [phone] HIV-1/2 Antibody Normal 06-28-2020 [facility] (48289) Comment: Result Comment: Test Not Ind icated Negative No evidence of HIV-1 or HIV- 2 infection. Should recent infection be suspected, repeat testing may be considered 2-3 weeks after this draw. HIV Information: [place] Rev. C ode 3701.243(E): This information has [...] Performed By: #### TSH, CMP, CBC, HIV12C ####[place] [address] [place], [place] [phone] comp metabolic panel on 2020-06-28 Albumin [Mass/Vol] 4.2 3.9-4.9 g/dL Normal 06-28-2020 [facility] (10644) Comment: Performed By: #### TSH, CMP, CBC, HIV12C ####[facility] [place], [place] [phone] ALP [Catalytic activity/Vol] 79 34-123 U/L Normal 0 06-28-2020 [facility] (65003) Comment: Performed By: #### TSH, CMP, CBC, HIV12C ####[facility] [place], [place] [phone] ALT [Catalytic activity/Vol] 16 7-38 U/L Normal 0 06-28-2020 [facility] (04048) Comment: Performed By: #### TSH, CMP, CBC, HIV12C ####[facility] [place], [place] [phone] Anion gap [Moles/Vol] 10 9-18 mmol/L Normal 06-28-20 20 [facility] (71225) Comment: Performed By: #### TSH, CMP, CBC, HIV12C ####[facility] [address] [place], [place] [phone] AST [Catalytic activity/Vol] 30 13-35 U/L Normal 0 06-28-2020 [facility] (72951) Comment: Performed By: #### TSH, CMP, CBC, HIV12C ####[facility] [address] [place], [place] [phone] Bilirubin [Mass/Vol] 0.5 0.2-1.3 mg/dL Normal 0 [facility] (34011) Comment: Performed By: #### TSH, CMP, CBC, HIV12C ####[facility] [address] [place], [place] [phone] Calcium [Mass/Vol] 9.0 8.5-10.2 mg/dL Normal 06-28-2020 [facility] (70728) Comment: Performed By: #### TSH, CMP, CBC, HIV12C ####[facility] [address] [place], [place] [phone] Chloride [Moles/Vol] 103 97-105 mmol/L Normal 0 [facility] (49388) Comment: Performed By: #### TSH, CMP, CBC, HIV12C ####[facility] [address] [place], [place] [phone] CO2 [Moles/Vol] 24 22-30 mmol/L Normal 06-28-2020 [facility] (37373) Comment: Performed By: #### TSH, CMP, CBC, HIV12C ####[facility] [address] [place], [place] [phone] Creatinine [Mass/Vol] 0.62 0.58-0.96 mg/dL Normal 06-28-20 20 [facility] (47500) Comment: Performed By: #### TSH, CMP, CBC, HIV12C ####[facility] [address] [place], [place] [phone] eGFR- Amer. >60 Normal 06-28-2020 [facility] (74893) Comment: Performed By: #### TSH, CMP, CBC, HIV12C ####[facility] [address] [place], [place] [phone] GFR/1.73 sq M predicted >60 mL/min/{1.73_m2} Normal 06-28-2020 [facility] among non-blacks [facility] [place] (44478) (S/P/Bld) [Vol rate/Area] Comment: Result Comment: eGFR [...] Performed By: #### TSH, CMP, CBC, HIV12C ####[facility] [address], [place] [phone] Glucose [Mass/Vol] 62 74-99 mg/dL Low 06-28-2020 [facility] (94959) Comment: Result Comment: The [place] Diabetes Association (ADA) provides guidance for cutoff [...] for diagnosis of diabetes. Reference: Standards of [facility] Care in Diabetes 2016, [place] Diabetes Association. Diabetes Care. 2016.39(Suppl 1). Performed By: #### TSH, CMP, CBC, HIV12C ####[facility] [address] [place], [place] [phone] Potassium [Moles/Vol] 3.7 3.7-5.1 mmol/L Normal 06-28-20 [facility] (64260) Comment: Performed By: #### TSH, CMP, CBC, HIV12C ####[facility] [place], [place] [phone] Protein [Mass/Vol] 6.7 6.3-8.0 g/dL Normal 06-28-2020 [facility] (66676) Comment: Performed By: #### TSH, CMP, CBC, HIV12C ####[facility] [address] [place], [place] [phone] Sodium [Moles/Vol] 137 136-144 mmol/L Normal 06-28-2020 [facility] (29498) Comment: Performed By: #### TSH, CMP, CBC, HIV12C ####[facility] [address] [place], [place] [phone] Urea nitrogen [Mass/Vol] 11 7-21 mg/dL Normal 06-28 [facility] (37291) Comment: Performed By: #### TSH, CMP, CBC, HIV12C ####[facility] [address] [place], [place] [phone] cnov on 2020-06-28 CNOV Office Visit (FAMPWS) Normal 06-28-[address] [place] [address] Clinic JOSE BA ([id number]) 1985 F [place] Date Time Provider Department (45480) 06/28/20 9:40 AM ELSA SMITH) FAMPWS During your visit today, we recorded the following informati on about you: Temperature Pulse Respiration Blood pressure 99.1 degrees 62/minute 16/minute 120/84 Weight 64.4 kg Elsa Smith MD 06/28/2020 10:53 AM Signed Chief Complaint [...] and H2 gamaliel and will refer to ENT/debeaker for evaluation and testing. Obtain labs as [...] Date Reviewed: 06/28/2020 Reviewed by: Modesta Mc (Head Animal Trainer) SHIRA Nieto - Fully Assessed Reason for [...] [Z11.4] Order(s):CONSULT TO ENT [9008] Order #: [id number]: 1 FUT URE loratadine (CLARITIN) 10 mg [...] mLRfl : 0 CBC [SQCBC] Order #: [id number] FUTURE COMP METABOLIC PANEL [SQCMP] Order #: [id number] FUTURE TSH BLD [SQTSH] Order #: [id number] FUTURE HIV 1 2 COMBO(AG/AB),WITH REFLEX TO DIFFERENTIATION [SQHIV12 ] Order #: [id number] FUTURE Prescriptions as of 06/28/2020 Sig: PANTOPRAZOLE [...] 2020-06-28 Absolute nRBC <0.01 <0.01 Normal 06-28-2020 [facility] (29107) Comment: Performed By: #### TSH, CMP, CBC, HIV12C ####[facility] [address] [place], [place] [phone] Erythrocyte distribution 12.9 11.5-15.0 % Normal 06-28 [facility] width (RBC) [Ratio] [place] (03914) Comment: Performed By: #### TSH, CMP, CBC, HIV12C ####[facility] [address] [place], [place] [phone] Hematocrit (Bld) [Volume 40.6 36.0-46.0 % Normal 06-28 [facility] fraction] [place] (26842) Comment: Performed By: #### TSH, CMP, CBC, HIV12C ####[facility] [address] [place], [place] [phone] Hemoglobin (Bld) 13.4 11.5-15.5 g/dL Normal 06-28-2020 [facility] [Mass/Vol] [place] (83622) Comment: Performed By: #### TSH, CMP, CBC, HIV12C ####[facility] [address] [place], [place] [phone] MCH (RBC) [Entitic mass] 33.3 26.0-34.0 pG Normal 06-28 [facility] (76815) Comment: Performed By: #### TSH, CMP, CBC, HIV12C ####[facility] [address] [place], [place] [phone] MCHC (RBC) [Mass/Vol] 33.0 30.5-36.0 g/dL Normal 06-28-20 20 [facility] (32274) Comment: Performed By: #### TSH, CMP, CBC, HIV12C ####[place] [address] [place], [place] [phone] MCV (RBC) [Entitic vol] 101.0 80.0-100.0 fL High 06-28 [facility] (59305) Comment: Performed By: #### TSH, CMP, CBC, HIV12C ####[facility] [place], [place] [phone] Platelet mean volume 11.7 9.0-12.7 fL Normal 0 [facility] (Bld) [Entitic vol] [place] (88989) Comment: Performed By: #### TSH, CMP, CBC, HIV12C ####[facility] [place], [place] [phone] Platelets (Bld) [#/Vol] 267 150-400 k/uL Normal 2019 [facility] (39119) Comment: Performed By: #### TSH, CMP, CBC, HIV12C ####[facility] [address] [place], [place] [phone] RBC (Bld) [#/Vol] 4.02 3.90-5.20 m/uL Normal 06-28-2020 [facility] (80719) Comment: Performed By: #### TSH, CMP, CBC, HIV12C ####[facility] [address] [place], [place] [phone] WBC (Bld) [#/Vol] 6.40 3.70-11.00 k/uL Normal 06-28-2020 [facility] (65626) Comment: Performed By: #### TSH, CMP, CBC, HIV12C ####[facility] [address] [place], [place] [phone] progress on 2020-06 PROGRESS HNO ID: [id number] Normal 06-27-2020 [facility] Author: Larry Anne) [facility] (52750) Service: ? Author Type: Nurse Practitioner Type: Progress Notes Filed: 06/27/2020 3:29 PM Note Text: Visit Date: June 27, 2020 Patient Name: Ms.Marissa Mohini Ba Date of : 1985 MRN/E #: [id number] Chief Complaint Patient presents with: Recheck: visit [...] fuller. yuliet on 2020-06-27 CNOV Office Visit ([facility]) Normal 06-27-20 20 [place] [facility] JOSE BA ([id number]) 1985 F [place] Date Time Provider Department (41716) 06/27/20 2:15 PM LARRY APONTE (RICARDO) [facility] During your visit today, we recorded the [...] Ba Date of : 1985 MRN/E #: [id number] Chief Complaint Patient presents with: Recheck: visit [...] [H66.92] Order(s):CONSULT TO DERMATOLOGY [9006] Order #: [id number] y: 1 FUTURE amoxicillin-clavulanic acid (AUGMENTIN) 875-125 [...] 06/27/20 progress on 2020-05 PROGRESS HNO ID: [id number] Normal 06-01-2020 [facility] Author: Darron Desai (Tier Lift Operator Global Product Manager) Richar Corbett (75950) Service: ? Author Type: Nurse Practitioner Type: [...] 2020-06-01 CNOV Office Visit ([facility]) Normal 06-01-20 [place] [facility] JOSE BA ([id number]) 1985 [facility] Date Time Provider Department (07185) 06/01/20 2:00 PM DARRON MCQUEEN (LABOR RELATIONS SPECIALIST, MANAGER CLINICAL RESEARCH)WSTR During your visit today, we recorded the following informati on about you: Temperature Pulse Respiration Blood pressure 98.3 degrees 96/minute 16/minute 122/68 Darron Mcqueen APRN.MANAGER CLINICAL RESEARCH 06/01/2020 2:32 PM Signed Subjective HPI Jose [...] and symptoms. All questions addressed. Darron Mcqueen APRN.MANAGER CLINICAL RESEARCH Referring Provider: SELF [200] Allergies As of Date: 06/01/2020 (No Known Allergies) Date Reviewed: 06/01/2020 Reviewed by: Darron Desai (Alayna Global Product Manager) Richar - Fully Assessed Reason for Visit: [...] on 2020-05-24 CNCO Letter Text Normal 05-24-2020 [facility] (06954) progress on 2020-04 PROGRESS HNO ID: [id number] Normal 05-15-2020 [facility] Author: Darron Desai (Alayna Eric) Richar Corbett (96741) Service: ? Author Type: Nurse Practitioner Type: [...] 2020-05-14 CNOV Office Visit ([facility]) Normal 05-14-20 [place] JOSE Mcfarland ([id number]) 1985 F [place] Date Time Provider Department (34043) 05/14/20 8:45 PM DARRON MCQUEEN (LABOR RELATIONS SPECIALIST, MANAGER CLINICAL RESEARCH)UCWSTR During your visit today, we recorded the [...] and symptoms. All questions addressed. Darron Mcqueen APRN.MANAGER CLINICAL RESEARCH Referring Provider: SELF [200] Allergies As of Date: 05/14/2020 (No Known Allergies) Date Reviewed: 05/14/2020 Reviewed by: Darron Desai (Tier Lift Operator Global Product Manager) Richar - Fully Assessed Reason for Visit: [...] 05/15 progress on 2020-03 PROGRESS HNO ID: [id number] Normal 04-23-2020 [facility] Author: Simón Lopez On License [facility] (88577) Service: ? Author Type: Physician Type: Progress [...] something. She was seen in the ER. [facility] ER prescribed her Omeprazole 20 mg [...] Histories in dependently gathered by the clinical systems support officer and the remaining scr ibed note accurately describes my personal service to the patient. Simón Dubois MD The documentation for this note was completed by Kelly piper MA acting as scribe for Simón Dubois MD. April 23, 2020 8:16 AM. Kelly Garay MA cnov on 2020-04-23 CNOV Office Visit ([facility]) Normal 04-23-[address] [place] [address] [facility] AJJOSE Rajan ([id number]) 1985 [facility] Date Time Provider Department (78876) 04/23/20 8:00 AM SIMÓN DUBOIS FAMPWS During [...] something. She was seen in the ER. [facility] E R prescribed her Omeprazole 20 [...] Histories in dependently gathered by the clinical systems support officer and the remaining scr ibed note accurately [...] 04/23/20 progress on 2020-03 PROGRESS HNO ID: [id number] Normal 04-20-2020 [facility] Author: Dennis Corbett ([id number]) Service: ? Author Type: Physician Type: Progress [...] negatives: Denies fever. History is significant for [facility] evaluation for a tear in her [...] for refills. [facility] she also appears to have [...] 2020-04-20 [facility]OV Office Visit ([facility]) Normal 04-20-20 [place] [facility] AJJOSE Rajan ([id number]) 1985 [facility] Date Time Provider Department (72381) 04/20/20 2:30 PM DENNIS PRO [facility] During your visit today, we recorded the [...] negatives: Denies fever. History is significant for [facility] evaluatio n for a tear in [...] for refills. [facility] she also appears to have [...] ANAEROBE CULTURE ANAEROBE --> Status: F No [facility]2019 [facility] No growth of anaerobes at 5 days. (02814) Comment: Order Comment: Specimen sarah ected in O.R.; received on swab. Performed By: #### CS/BA, C/ REECE ####[facility] [address] [place] [address] CULTURE ANAEROBE CULTURE ANAEROBE --> Status: F No [facility] 04-19-2019 [facility] No growth of anaerobes at 5 days. (74172) Comment: Order Comment: Specimen sarah ected in O.R.; received on swab. Performed By: #### HEMDF, PT , BMP3, CRP2, LFT3 #### [address] [place], [place] vancomycin trough o n 2019-04-17 Vancomycin Trough 6.8 15.0-20.0 ug/mL Low 04-17-2019 [facility] (59382) Comment: Result Comment: . Performed By: #### HEMDF, PT , BMP3, CRP2, LFT3 #### [address] magnesium on 04-17 Magnesium [Mass/Vol] 1.9 1.6-2.3 mg/dL Normal 9 [facility] (26576) Comment: Performed By: #### HEMDF, PT , BMP3, CRP2, LFT3 #### [address] hemogram w/ autodiff on 2019-04-17 Abs Baso Cnt 0.1 0.0-0.2 10*3/uL Normal 04-17-2019 [facility] (99787) Comment: Performed By: #### HEMDF, PT , BMP3, CRP2, LFT3 #### [address] Abs Neutrophile Cnt 4.6 1.8-7.0 10*3/uL Normal 04-17-2019 [facility] (90086) Comment: Performed By: #### HEMDF, PT , BMP3, CRP2, LFT3 #### [address] Basophils/100 WBC (Bld) 0.7 0.0-2.0 % Normal 2018 [facility] (69908) Comment: Performed By: #### HEMDF, PT , BMP3, CRP2, LFT3 #### [address] Eosinophils (Bld) [#/Vol] 0.1 0.0-0.5 10*3/uL Normal 03-26 [facility] (01322) Comment: Performed By: #### HEMDF, PT , BMP3, CRP2, LFT3 #### [address] [place] [address] Eosinophils/100 WBC (Bld) 1.6 1.0-6.0 % Normal 03-26 [facility] (09372) Comment: Performed By: #### HEMDF, PT , BMP3, CRP2, LFT3 #### [place] [address] [place] [address] Erythrocyte distribution 13.6 11.5-14.5 % Normal 04-17 [facility] width (RBC) [Ratio] (36444) Comment: Performed By: #### HEMDF, PT , BMP3, CRP2, LFT3 #### [place] [address] [place], [place] Granulocytes/100 WBC (Bld) 65.2 40.0-80.0 % Normal [facility] (12147) Comment: Performed By: #### HEMDF, PT , BMP3, CRP2, LFT3 #### [place] [address] [place], [place] Hematocrit (Bld) [Volume 36.2 35.0-47.0 % Normal 04-17 [facility] fraction] (55833) Comment: Performed By: #### HEMDF, PT , BMP3, CRP2, LFT3 #### [place] [address] [place], [place] Hemoglobin (Bld) 12.3 11.7-16.0 g/dL Normal 04-17-2019 [facility] [Mass/Vol] ([id number]) Comment: Performed By: #### HEMDF, PT , BMP3, CRP2, LFT3 #### [address] [place], [place] Lymphocytes (Bld) [#/Vol] 1.7 1.0-4.3 10*3/uL Normal 03-26 [facility] (29662) Comment: Performed By: #### HEMDF, PT , BMP3, CRP2, LFT3 #### [address] [place], [place] Lymphocytes/100 WBC (Bld) 24.2 20.0-40.0 % Normal 03-26 [facility] (20074) Comment: Performed By: #### HEMDF, PT , BMP3, CRP2, LFT3 #### [address] [place], [place] MCH (RBC) [Entitic mass] 32.8 26.0-34.0 pg Normal 04-17 [facility] (85357) Comment: Performed By: #### HEMDF, PT , BMP3, CRP2, LFT3 #### [address] [place], [place] MCHC (RBC) [Mass/Vol] 33.9 32.0-36.0 % Normal 04-17-20 [facility] (35263) Comment: Performed By: #### HEMDF, PT , BMP3, CRP2, LFT3 #### [address] MCV (RBC) [Entitic vol] 96.8 79.0-98.0 fL Normal 2018 [facility] (61486) Comment: Performed By: #### HEMDF, PT , BMP3, CRP2, LFT3 #### [address] [place], [place] Monocytes (Bld) [#/Vol] 0.6 0.0-0.8 10*3/uL Normal 2018 [facility] (60148) Comment: Performed By: #### HEMDF, PT , BMP3, CRP2, LFT3 #### [address] [place], [place] Monocytes/100 WBC (Bld) 8.3 2.0-10.0 % Normal 2018 [facility] (30091) Comment: Performed By: #### HEMDF, PT , BMP3, CRP2, LFT3 #### [address] Platelet mean volume (Bld) 9.2 7.4-10.4 fL Normal [facility] [Entitic vol] (95709 ) Comment: Performed By: #### HEMDF, PT , BMP3, CRP2, LFT3 #### [address] [place], [place] Platelets (Bld) [#/Vol] 212 140-440 10*3/uL Normal 2018 [facility] (78563) Comment: Performed By: #### HEMDF, PT , BMP3, CRP2, LFT3 #### [address] [place], [place] RBC (Bld) [#/Vol] 3.74 3.80-5.20 10*6/uL Low 04-17-2019 [facility] (62016) Comment: Performed By: #### HEMDF, PT , BMP3, CRP2, LFT3 #### [address] [place], [place] WBC (Bld) [#/Vol] 7.0 3.6-10.7 10*3/uL Normal 04-17-2019 [facility] (25648) Comment: Performed By: #### HEMDF, PT , BMP3, CRP2, LFT3 #### [address] [place], [place] c-reactive protein on 2019-04-17 CRP [Mass/Vol] 19.2 0.0-6.0 mg/L High 04-17-2019 [facility] (92831) Comment: Result Comment: . Performed By: #### HEMDF, PT , BMP3, CRP2, LFT3 #### [address] [place], [place] basic metabolic panel on 2019-04-17 Calcium [Mass/Vol] 8.5 8.4-10.4 mg/dL Normal 04-17-2019 [facility] (46824) Comment: Performed By: #### HEMDF, PT , BMP3, CRP2, LFT3 #### [address] [place], [place] Glucose [Mass/Vol] 108 70-100 mg/dL High 04-17-2019 [facility] (20113) Comment: Performed By: #### HEMDF, PT , BMP3, CRP2, LFT3 #### [address] [place], [place] Anion gap [Moles/Vol] 4 Normal 04-17-20 [facility] (08338) Comment: Performed By: #### HEMDF, PT , BMP3, CRP2, LFT3 #### [address] [address] [place], [place] CO2 [Moles/Vol] 28 22-30 mmol/L Normal 04-17-2019 [facility] (48994) Comment: Performed By: #### HEMDF, PT , BMP3, CRP2, LFT3 #### [address] [address] [place], [place] Creatinine [Mass/Vol] 0.40 0.52-1.25 mg/dL Low 04-17-20 [facility] (73402) Comment: Performed By: #### HEMDF, PT , BMP3, CRP2, LFT3 #### [address] [address] [place], [place] GFR/1.73 sq M > 60.0 >60 mL/min/{1.73_m2} Normal 9 [facility] predicted among Syst em (93677) blacks MDRD (S/P/Bld) [Vol rate/Area] Comment: Performed By: #### HEMDF, PT , BMP3, CRP2, LFT3 #### [address] [place], [place] GFR/1.73 sq M > 60.0 >60 mL/min/{1.73_m2} Normal 9 [facility] predicted among Syst em (95830) non-blacks MDRD (S/P/Bld) [Vol rate/Area] Comment: Result Comment: Source- MDRD equation with creatinine calibration to IDMS(NKDEP) eGFR not recommended for mireya g dose adjustment Performed By: #### HEMDF, PT , BMP3, CRP2, LFT3 #### [address] [place], [place] Urea nitrogen [Mass/Vol] 6 7-20 mg/dL Low 04-17 [facility] (06317) Comment: Performed By: #### HEMDF, PT , BMP3, CRP2, LFT3 #### [address] [place] [address] Chloride [Moles/Vol] 109 98-107 mmol/L High 9 [facility] (19449) Comment: Performed By: #### HEMDF, PT , BMP3, CRP2, LFT3 #### [address] [place] [address] Potassium [Moles/Vol] 3.9 3.5-5.1 mmol/L Normal 04-17-20 19 [facility] (71439) Comment: Performed By: #### HEMDF, PT , BMP3, CRP2, LFT3 #### [address] [place] [address] Sodium [Moles/Vol] 141 135-145 mmol/L Normal 04-17-2019 [facility] (85111) Comment: Performed By: #### HEMDF, PT , BMP3, CRP2, LFT3 #### [address] [place] [address] magnesium on 04-16 Magnesium [Mass/Vol] 2.0 1.6-2.3 mg/dL Normal 9 [facility] (71302) Comment: Performed By: #### HEMDF, CR P2, BMP3, MG3, LFT3 ####[address] [place], [place] hepatic function on 2019-04-16 ALP [Catalytic activity/Vol] 94 38-126 U/L Normal 0 04-16-2019 [facility] (73502) Comment: Performed By: #### HEMDF, CR P2, BMP3, MG3, LFT3 ####[address] [place], [place] [address] ALT [Catalytic activity/Vol] 37 13-69 U/L Normal 0 04-16-2019 [facility] (91033) Comment: Performed By: #### HEMDF, CR P2, BMP3, MG3, LFT3 ####[address] [address] AST [Catalytic activity/Vol] 45 15-46 U/L Normal 0 04-16-2019 [facility] (68178) Comment: Performed By: #### HEMDF, CR P2, BMP3, MG3, LFT3 ####[address] [address] Bilirubin [Mass/Vol] 0.2 0.2-1.3 mg/dL Normal 9 [facility] (69126) Comment: Performed By: #### HEMDF, CR P2, BMP3, MG3, LFT3 ####[address] [address] Bilirubin.direct [Mass/Vol] 0.0 0.0-0.3 mg/dL Normal [facility] (25994) Comment: Performed By: #### HEMDF, CR P2, BMP3, MG3, LFT3 ####[address] [address] Protein [Mass/Vol] 6.4 6.3-8.2 g/dL Normal 04-16-2019 [facility] (33590) Comment: Performed By: #### HEMDF, CR P2, BMP3, MG3, LFT3 ####[address] [address]0 Albumin [Mass/Vol] 3.2 3.5-5.0 g/dL Low 04-16-2019 [facility] (80455) Comment: Performed By: #### HEMDF, CR P2, BMP3, MG3, LFT3 ####[address] [address] hemogram w/ autodiff on 2019-04-16 Abs Baso Cnt 0.0 0.0-0.2 10*3/uL Normal 04-16-2019 [facility] (75715) Comment: Performed By: #### HEMDF, CR P2, BMP3, MG3, LFT3 ####[address] [address] Abs Neutrophile Cnt 7.8 1.8-7.0 10*3/uL High 04-16-2019 [facility] (36410) Comment: Performed By: #### HEMDF, CR P2, BMP3, MG3, LFT3 ####[address] [address] Basophils/100 WBC (Bld) 0.4 0.0-2.0 % Normal 2018 [facility] (31556) Comment: Performed By: #### HEMDF, CR P2, BMP3, MG3, LFT3 ####[address] [address] Eosinophils (Bld) [#/Vol] 0.1 0.0-0.5 10*3/uL Normal 03-26 [facility] (03373) Comment: Performed By: #### HEMDF, CR P2, BMP3, MG3, LFT3 ####[address] [address] Eosinophils/100 WBC (Bld) 0.6 1.0-6.0 % Low 03-26 [facility] (00829) Comment: Performed By: #### HEMDF, CR P2, BMP3, MG3, LFT3 ####[address] [address] Erythrocyte distribution 13.4 11.5-14.5 % Normal 04-16 [facility] width (RBC) [Ratio] (76573) Comment: Performed By: #### HEMDF, CR P2, BMP3, MG3, LFT3 ####[address] [address] Granulocytes/100 WBC (Bld) 71.5 40.0-80.0 % Normal [facility] (73144) Comment: Performed By: #### HEMDF, CR P2, BMP3, MG3, LFT3 ####[address] [address] Hematocrit (Bld) [Volume 37.8 35.0-47.0 % Normal 04-16 [facility] fraction] (65006) Comment: Performed By: #### HEMDF, CR P2, BMP3, MG3, LFT3 ####[address] [address] Hemoglobin (Bld) 12.7 11.7-16.0 g/dL Normal 04-16-2019 [facility] [Mass/Vol] (07469) Comment: Performed By: #### HEMDF, CR P2, BMP3, MG3, LFT3 ####[address] [address] Lymphocytes (Bld) [#/Vol] 2.1 1.0-4.3 10*3/uL Normal 03-26 [facility] (77387) Comment: Performed By: #### HEMDF, CR P2, BMP3, MG3, LFT3 ####[address] [address] Lymphocytes/100 WBC (Bld) 19.7 20.0-40.0 % Low 03-26 [facility] (23078) Comment: Performed By: #### HEMDF, CR P2, BMP3, MG3, LFT3 ####[place] [address] MCH (RBC) [Entitic mass] 32.7 26.0-34.0 pg Normal 04-16 [facility] (40291) Comment: Performed By: #### HEMDF, CR P2, BMP3, MG3, LFT3 ####[address] [address] MCHC (RBC) [Mass/Vol] 33.6 32.0-36.0 % Normal 04-16-20 19 [facility] (84514) Comment: Performed By: #### HEMDF, CR P2, BMP3, MG3, LFT3 ####[place] [address] MCV (RBC) [Entitic vol] 97.3 79.0-98.0 fL Normal 2018 [facility] (91924) Comment: Performed By: #### HEMDF, CR P2, BMP3, MG3, LFT3 ####[address] [address] Monocytes (Bld) [#/Vol] 0.8 0.0-0.8 10*3/uL Normal 2018 [facility] (17967) Comment: Performed By: #### HEMDF, CR P2, BMP3, MG3, LFT3 ####[address] [address] Monocytes/100 WBC (Bld) 7.8 2.0-10.0 % Normal 2018 [facility] (29752) Comment: Performed By: #### HEMDF, CR P2, BMP3, MG3, LFT3 ####[address] [address] Platelet mean volume (Bld) 9.0 7.4-10.4 fL Normal [facility] [Entitic vol] (26926 ) Comment: Performed By: #### HEMDF, CR P2, BMP3, MG3, LFT3 ####[address] [address] Platelets (Bld) [#/Vol] 202 140-440 10*3/uL Normal 2018 [facility] (87340) Comment: Performed By: #### HEMDF, CR P2, BMP3, MG3, LFT3 ####[address] [address] RBC (Bld) [#/Vol] 3.88 3.80-5.20 10*6/uL Normal 04-16-2019 [facility] (70475) Comment: Performed By: #### HEMDF, CR P2, BMP3, MG3, LFT3 ####[address] [address] WBC (Bld) [#/Vol] 10.9 3.6-10.7 10*3/uL High 04-16-2019 [facility] (46170) Comment: Performed By: #### HEMDF, CR P2, BMP3, MG3, LFT3 ####[facility] [id number] [facility] [place] [phone] c-reactive protein on 2019-04-16 CRP [Mass/Vol] 33.6 0.0-6.0 mg/L High 04-16-2019 [facility] (44412) Comment: Result Comment: . Performed By: #### HEMDF, CR P2, BMP3, MG3, LFT3 ####[facility] [id number] [facility] [place] [address] basic metabolic panel on 2019-04-16 Anion gap [Moles/Vol] 6 Normal 04-16-20 19 [facility] (22899) Comment: Performed By: #### HEMDF, CR P2, BMP3, MG3, LFT3 ####[facility] [address] [facility] [place] [address] Calcium [Mass/Vol] 8.3 8.4-10.4 mg/dL Low 04-16-2019 [facility] (65383) Comment: Performed By: #### HEMDF, CR P2, BMP3, MG3, LFT3 ####[facility] Best [id number] [facility] [place] [address] CO2 [Moles/Vol] 27 22-30 mmol/L Normal 04-16-2019 [facility] (69100) Comment: Performed By: #### HEMDF, CR P2, BMP3, MG3, LFT3 ####[facility] Best [id number] [facility] [place] [address] Glucose [Mass/Vol] 109 70-100 mg/dL High 04-16-2019 [facility] (48895) Comment: Performed By: #### HEMDF, CR P2, BMP3, MG3, LFT3 ####[facility] [id number] [place], [place] [address] Urea nitrogen [Mass/Vol] 7 7-20 mg/dL Normal 04-16 [facility] (89075) Comment: Performed By: #### HEMDF, CR P2, BMP3, MG3, LFT3 ####[id number] [place], [place] [address] Creatinine [Mass/Vol] 0.45 0.52-1.25 mg/dL Low 04-16-20 19 [facility] (82089) Comment: Performed By: #### HEMDF, CR P2, BMP3, MG3, LFT3 ####[address] [place], [place] [address] GFR/1.73 sq M > 60.0 >60 mL/min/{1.73_m2} Normal 9 [facility] predicted among Syst em (59176) blacks MDRD (S/P/Bld) [Vol rate/Area] Comment: Performed By: #### HEMDF, CR P2, BMP3, MG3, LFT3 ####[address] [place], [place] [address] GFR/1.73 sq M > 60.0 >60 mL/min/{1.73_m2} Normal 9 [facility] predicted among Syst em (79904) non-blacks MDRD (S/P/Bld) [Vol rate/Area] Comment: Result Comment: Source- MDRD equation with creatinine calibration to IDMS(NKDEP) eGFR not recommended for mireya g dose adjustment Performed By: #### HEMDF, CR P2, BMP3, MG3, LFT3 ####[address] [place], [place] [address] Chloride [Moles/Vol] 110 98-107 mmol/L High 9 [facility] (91053) Comment: Performed By: #### HEMDF, CR P2, BMP3, MG3, LFT3 ####[address] [place], [place] [address] Potassium [Moles/Vol] 3.3 3.5-5.1 mmol/L Low 04-16-20 19 [facility] (24772) Comment: Performed By: #### HEMDF, CR P2, BMP3, MG3, LFT3 ####[address] [place], [place] [address] Sodium [Moles/Vol] 142 135-145 mmol/L Normal 04-16-2019 [facility] (09307) Comment: Performed By: #### HEMDF, CR P2, BMP3, MG3, LFT3 ####[address] [place], [place] [address] add on test from his on 2019-04-16 Add on test from HIS Accepted Normal 9 [facility] (35560) Comment: Result Comment: Specimen venice ilable & acceptable for analysis. Performed By: #### HEMDF, PT , BMP3, CRP2, LFT3 #### [facility] [address] [place] [address] rpr, qual on 04-15 RPR, Qual NONREACTIVE Non-Reactive Normal 04-15-2019 [facility] (54855) Comment: Performed By: #### HIV4, HEP AN, RPR ####[address] [place], [place] magnesium on 04-15 Magnesium [Mass/Vol] 1.8 1.6-2.3 mg/dL Normal 9 [facility] (33154) Comment: Performed By: #### CRP2, BMP 3, MG3, ETOH4 ####[address] [place], [place] hiv 1,2 ab; p24 ag on 2019-04-15 HIV 1,2 Ab; p24 Ag NONREACTIVE Nonreactive Normal 019 [facility] (52477) Comment: Result Comment: Results obta ined using [...] Performed By: #### HIV4, HEP AN, RPR ####[facility] Best [id number] [place] hemogram w/ autodiff on 2019-04-15 Abs Baso Cnt 0.0 0.0-0.2 10*3/uL Normal 04-15-2019 [facility] (24131) Comment: Performed By: #### HEMDF ### [address] Abs Neutrophile Cnt 11.9 1.8-7.0 10*3/uL High 04-15-2019 [facility] (38579) Comment: Performed By: #### HEMDF ### [address] Basophils/100 WBC (Bld) 0.1 0.0-2.0 % Normal 2018 [facility] (32293) Comment: Performed By: #### HEMDF ### [address] Eosinophils (Bld) [#/Vol] 0.0 0.0-0.5 10*3/uL Normal 03-26 [facility] (90006) Comment: Performed By: #### HEMDF ### [address] Eosinophils/100 WBC (Bld) 0.0 1.0-6.0 % Low 03-26 [facility] (22262) Comment: Performed By: #### HEMDF ### [address] Erythrocyte distribution 13.5 11.5-14.5 % Normal 04-15 [facility] width (RBC) [Ratio] (42067) Comment: Performed By: #### HEMDF ### [address] Granulocytes/100 WBC (Bld) 88.1 40.0-80.0 % High [facility] (07528) Comment: Performed By: #### HEMDF ### [address] Hematocrit (Bld) [Volume 38.9 35.0-47.0 % Normal 04-15 [facility] fraction] (26294) Comment: Performed By: #### HEMDF ### [address] Hemoglobin (Bld) 13.1 11.7-16.0 g/dL Normal 04-15-2019 [facility] [Mass/Vol] (33618) Comment: Performed By: #### HEMDF ### [address] Lymphocytes (Bld) [#/Vol] 0.9 1.0-4.3 10*3/uL Low 03-26 [facility] (53017) Comment: Performed By: #### HEMDF ### [address] Lymphocytes/100 WBC (Bld) 6.6 20.0-40.0 % Low 03-26 [facility] (78732) Comment: Performed By: #### HEMDF ### [address] MCH (RBC) [Entitic mass] 32.6 26.0-34.0 pg Normal 04-15 [facility] (19445) Comment: Performed By: #### HEMDF ### [address] MCHC (RBC) [Mass/Vol] 33.7 32.0-36.0 % Normal 04-15-20 19 [facility] (99234) Comment: Performed By: #### HEMDF ### [address] MCV (RBC) [Entitic vol] 96.9 79.0-98.0 fL Normal 2018 [facility] (72349) Comment: Performed By: #### HEMDF ### [address] Monocytes (Bld) [#/Vol] 0.7 0.0-0.8 10*3/uL Normal 2018 [facility] (26396) Comment: Performed By: #### HEMDF ### [address] [place] [address] Monocytes/100 WBC (Bld) 5.2 2.0-10.0 % Normal 2018 [facility] (95148) Comment: Performed By: #### HEMDF ### #[address] [place] [address] Platelet mean volume (Bld) 9.3 7.4-10.4 fL Normal [facility] [Entitic vol] (63172 ) Comment: Performed By: #### HEMDF ### [address] [place] [address] Platelets (Bld) [#/Vol] 204 140-440 10*3/uL Normal 2018 [facility] (55598) Comment: Performed By: #### HEMDF ### [address] [place] [address] RBC (Bld) [#/Vol] 4.02 3.80-5.20 10*6/uL Normal 04-15-2019 [facility] (65988) Comment: Performed By: #### HEMDF ### [address] [place] [address] WBC (Bld) [#/Vol] 13.5 3.6-10.7 10*3/uL High 04-15-2019 [facility] (89066) Comment: Performed By: #### HEMDF ### [address] [place] [address] hcg,urine qual on Beta HCG ( test) Negative Negative Normal 03-26 [facility] Ql (U) (42232) Comment: Result Comment: is the most common reason for HCG in urine, although choriocarcinoma, hydatidifor m mole, and certain nontropho- blastic malignancies also re sult in detectable urinary HCG levels. Sensitivity = 20mIU/ mL. Performed By: #### DANIELLE DOMINGUEZR, DRGA4 #### [facility] [address] [facility] [place], [place] ethanol serum/plasma on 2019-04-15 Ethanol-Serum/Plasma < 0.010 0.000-0.010 Normal 04-15- 019 [facility] (01721) Comment: Result Comment: NOTE: This r esult is for medical treatment only. Analysis performed using non -forensic procedures. Performed By: #### CRP2, BMP 3, MG3, ETOH4 ####[facility] [facility] [place] drugs of abuse on Amphetamines, Ur Positive Normal 04-15-2019 [facility] (78286) Comment: Performed By: #### DANIELLE DOMINGUEZ, DRGA4 ####[facility] [facility], [place] Phencyclidine (PCP), Ur Negative Normal 2018 [facility] (65252) Comment: Result Comment: The expected value for [...] order. Performed By: #### DANIELLE DOMINGUEZR, DRGA4 ####[facility] [id number] [facility] [place] Opiates, Ur Negative Normal 04-15-2019 [facility] (89568) Comment: Performed By: #### DANIELLE DOMINGUEZR, DRGA4 ####[facility] [id number] [facility] [place] Cocaine, Ur Negative Normal 04-15-2019 [facility] (08125) Comment: Performed By: #### DANIELLE DOMINGUEZ, DRGA4 ####[address] [place] [address] Methadone, Ur Negative Normal 04-15-2019 [facility] (93527) Comment: Performed By: #### DANIELLE DOMINGUEZ, DRGA4 ####[address] [place] [address] Barbiturates, Ur Negative Normal 04-15-2019 [facility] (18281) Comment: Performed By: #### DANIELLE DOMINGUEZ, DRGA4 ####[address] [address] Benzodiazepines, Ur Positive Normal 04-15-2019 [facility] (03339) Comment: Performed By: #### DANIELLE DOMINGUEZR, DRGA4 ####[address] [address] Oxycodone/Oxymorphine,Ur Negative Normal 04-15 [facility] (88056) Comment: Performed By: #### DANIELLE DOMINGUEZ, DRGA4 ####[address] [address] cult./st. bacteria on 2019-04-15 CULT./ST. BACTERIA CULT./ST. BACTERIA --> Status: F Normal 04-15-2019 [facility] No growth at 3 days. System ([id number]) STAIN GRAM --> Status: F Moderate polymorphonuclear cells/lpf. Few mononuclear cells/lpf No organisms seen. Few mononuclear cells/lpf No organisms seen. Comment: Order Comment: Specimen sarah ected in O.R.; received on swab. Performed By: #### CS/Melody ACOSTA/ REECE ####[address] [address] CULT./ST. BACTERIA CULT./ST. BACTERIA --> Status: F Normal 04-15-2019 [facility] No growth at 3 days. System ([id number]) STAIN GRAM --> Status: F Many polymorphonuclear cells/lpf. Few mononuclear cells/lpf No organisms seen. Few mononuclear cells/lpf No organisms seen. Comment: Order Comment: Specimen sarah ected in O.R.; received on swab. Performed By: #### CS/DAVE, Melody/ REECE ####[facility] [id number] [place] [address] chlamydia and gc pcr panel on 2019-04-15 Chlamydia and GC PCR Chlamydia trachomatis PCR --> Status: F Abnormal 04-15-2019 [facility] Panel NOT Detected System ([id number]) Chlamydia trachomatis Nucleic Acid NOT Detected by DNA Amplification using the [employer] System. Culture is the only recommended test [...] Comment:Urine voided Performed By: #### CTNGP ### [address] [employer] [place] c-reactive protein on 2019-04-15 CRP [Mass/Vol] 44.5 0.0-6.0 mg/L High 04-15-2019 [facility] (33791) Comment: Result Comment: . Performed By: #### CRP2, BMP 3, MG3, ETOH4 ####[place] [address] [address] [address] [facility] basic metabolic panel on 2019-04-15 Calcium [Mass/Vol] 8.8 8.4-10.4 mg/dL Normal 04-15-2019 [facility] (70842) Comment: Performed By: #### CRP2, BMP 3, MG3, ETOH4 ####[address] [address] [address] [employer] [place] Glucose [Mass/Vol] 155 70-100 mg/dL High 04-15-2019 [facility] (27603) Comment: Performed By: #### CRP2, BMP 3, MG3, ETOH4 ####[facility] [place] [address] [facility] Urea nitrogen [Mass/Vol] 6 7-20 mg/dL Low 04-15 [facility] (15904) Comment: Performed By: #### CRP2, BMP 3, MG3, ETOH4 ####[place] [id number] [facility] [place] Anion gap [Moles/Vol] 8 Normal 04-15-20 19 [facility] ([id number]) Comment: Performed By: #### CRP2, BMP 3, MG3, ETOH4 ####[facility] [id number] [facility], [place] CO2 [Moles/Vol] 25 22-30 mmol/L Normal 04-15-2019 [facility] ([id number]) Comment: Performed By: #### CRP2, BMP 3, MG3, ETOH4 ####[facility] [id number] [facility] [place] Creatinine [Mass/Vol] 0.48 0.52-1.25 mg/dL Low 04-15-20 [facility] ([id number]) Comment: Performed By: #### CRP2, BMP 3, MG3, ETOH4 ####[id number] [place] [address] GFR/1.73 sq M > 60.0 >60 mL/min/{1.73_m2} Normal 9 [facility] ([id number]) blacks MDRD (S/P/Bld) [Vol rate/Area] Comment: Performed By: #### CRP2, BMP 3, MG3, ETOH4 ####[id number] [place] GFR/1.73 sq M > 60.0 >60 mL/min/{1.73_m2} Normal 9 [facility] ([id number]) non-blacks MDRD (S/P/Bld) [Vol rate/Area] Comment: Result Comment: Source- MDRD equation with creatinine calibration to IDMS(NKDEP) eGFR not recommended for imreya g dose adjustment Performed By: #### CRP2, BMP 3, MG3, ETOH4 ####[id number] [place], [place] Chloride [Moles/Vol] 104 98-107 mmol/L Normal 9 [facility] [employer] ([id number]) Comment: Performed By: #### CRP2, BMP 3, MG3, ETOH4 ####[id number] [place] [address] Potassium [Moles/Vol] 4.1 3.5-5.1 mmol/L Normal 04-15-20 19 [facility] ([id number]) Comment: Performed By: #### CRP2, BMP 3, MG3, ETOH4 ####[id number] [place] [address] Sodium [Moles/Vol] 137 135-145 mmol/L Normal 04-15-2019 [facility] (86042) Comment: Performed By: #### CRP2, BMP 3, MG3, ETOH4 ####[employer] [place], [place] acute hepatitis panel on 2019-04-15 Hep C Antibody NOT DETECTED Not-Detected Normal 9 [facility] (70320) Comment: Result Comment: Patients wit h DETECTED Hepatitis C Ab results should have a new specimen submitted for supplemental t esting with a Hepatitis C Quantitative RNA assay (viral load), if clinically indicated. Performed By: #### HIV4, HEP AN, RPR ####[facility] [id number] [place], [place] Hep B Core IgM NOT DETECTED Not-Detected Normal 9 [facility] ([id number]) Comment: Performed By: #### HIV4, HEP AN, RPR ####[facility] [id number] [place], [place] Hep B Surface Ag NOT DETECTED Not-Detected Normal 019 [facility] (16759) Comment: Performed By: #### HIV4, HEP AN, RPR ####[facility] [id number] [place], [place] Hep A Virus Ab,IgM NOT DETECTED Not-Detected Normal 04-15 [facility] (54971) Comment: Performed By: #### HIV4, HEP AN, RPR ####[facility] [id number] [place], [place] ts gel on 2019-03-26 1 TS GEL ABO Group: Normal 04-14-2019 [facility] (46197) O Rh, Gel: POS Antibody Screen Gel: NEG Comment: Performed By: #### TSGL #### [facility] [id number] [place] [address] sed rate on 2019-03 Sed Rate 8 0-20 mm/h Normal 04-14-2019 [facility] ([id number]) Comment: Performed By: #### ESR #### [facility] [address] [place], [place] prothrombin time on 2019-04-14 INR Coag (PPP) [Relative 0.9 0.9-1.1 Normal 04-14 [facility] time] ([id number]) Comment: Result Comment: Recommended Anticoagulant Therapy: SEE [...] HEMDF, PT , BMP3, CRP2, LFT3 #### [place] [address] [place], [place] PT Coag (PPP) [Time] 9.8 9.0-12.0 s Normal 9 [facility] (25381) Comment: Result Comment: . Performed By: #### HEMDF, PT , BMP3, CRP2, LFT3 #### [address] hepatic function on 2019-04-14 ALP [Catalytic activity/Vol] 75 38-126 U/L Normal 0 04-14-2019 [facility] (72941) Comment: Performed By: #### HEMDF, PT , BMP3, CRP2, LFT3 #### [address] ALT [Catalytic activity/Vol] 41 13-69 U/L Normal 0 04-14-2019 [facility] (41148) Comment: Performed By: #### HEMDF, PT , BMP3, CRP2, LFT3 #### [address] AST [Catalytic activity/Vol] 45 15-46 U/L Normal 0 04-14-2019 [facility] (03905) Comment: Performed By: #### HEMDF, PT , BMP3, CRP2, LFT3 #### [address] Bilirubin [Mass/Vol] 0.4 0.2-1.3 mg/dL Normal 9 [facility] (92747) Comment: Performed By: #### HEMDF, PT , BMP3, CRP2, LFT3 #### [address] [address] [place], [place] Bilirubin.direct [Mass/Vol] 0.0 0.0-0.3 mg/dL Normal [facility] (13408) Comment: Performed By: #### HEMDF, PT , BMP3, CRP2, LFT3 #### [address] Protein [Mass/Vol] 5.7 6.3-8.2 g/dL Low 04-14-2019 [facility] (11682) Comment: Performed By: #### HEMDF, PT , BMP3, CRP2, LFT3 #### [address] Albumin [Mass/Vol] 3.0 3.5-5.0 g/dL Low 04-14-2019 [facility] (13264) Comment: Performed By: #### HEMDF, PT , BMP3, CRP2, LFT3 #### [address] [place], [place] hemogram w/ autodiff on 2019-04-14 Abs Baso Cnt 0.0 0.0-0.2 10*3/uL Normal 04-14-2019 [facility] (66684) Comment: Performed By: #### HEMDF, PT , BMP3, CRP2, LFT3 #### [address] Abs Neutrophile Cnt 9.3 1.8-7.0 10*3/uL High 04-14-2019 [facility] (66041) Comment: Performed By: #### HEMDF, PT , BMP3, CRP2, LFT3 #### [address] Basophils/100 WBC (Bld) 0.3 0.0-2.0 % Normal 2018 [facility] (86190) Comment: Performed By: #### HEMDF, PT , BMP3, CRP2, LFT3 #### [address] [address] [address] [place], [place] Eosinophils (Bld) [#/Vol] 0.0 0.0-0.5 10*3/uL Normal 03-26 [facility] (54513) Comment: Performed By: #### HEMDF, PT , BMP3, CRP2, LFT3 #### [address] Eosinophils/100 WBC (Bld) 0.3 1.0-6.0 % Low 03-26 [facility] (35038) Comment: Performed By: #### HEMDF, PT , BMP3, CRP2, LFT3 #### [address] Erythrocyte distribution 13.6 11.5-14.5 % Normal 04-14 [facility] width (RBC) [Ratio] (99364) Comment: Performed By: #### HEMDF, PT , BMP3, CRP2, LFT3 #### [address] [place], [place] Granulocytes/100 WBC (Bld) 82.0 40.0-80.0 % High [facility] (54187) Comment: Performed By: #### HEMDF, PT , BMP3, CRP2, LFT3 #### [address] Hematocrit (Bld) [Volume 36.1 35.0-47.0 % Normal 04-14 [facility] fraction] (26703) Comment: Performed By: #### HEMDF, PT , BMP3, CRP2, LFT3 #### [address] Hemoglobin (Bld) 12.1 11.7-16.0 g/dL Normal 04-14-2019 [facility] [Mass/Vol] (80565) Comment: Performed By: #### HEMDF, PT , BMP3, CRP2, LFT3 #### [address] Lymphocytes (Bld) [#/Vol] 1.1 1.0-4.3 10*3/uL Normal 03-26 [facility] (02522) Comment: Performed By: #### HEMDF, PT , BMP3, CRP2, LFT3 #### [address] [place] [address] Lymphocytes/100 WBC (Bld) 9.6 20.0-40.0 % Low 03-26 [facility] (37698) Comment: Performed By: #### HEMDF, PT , BMP3, CRP2, LFT3 #### [address] [address] [address] [place], [place] MCH (RBC) [Entitic mass] 32.6 26.0-34.0 pg Normal 04-14 [facility] (17074) Comment: Performed By: #### HEMDF, PT , BMP3, CRP2, LFT3 #### [address] [address] [place], [place] MCHC (RBC) [Mass/Vol] 33.6 32.0-36.0 % Normal 04-14-20 [facility] (76920) Comment: Performed By: #### HEMDF, PT , BMP3, CRP2, LFT3 #### [address] [address] [address] [place], [place] MCV (RBC) [Entitic vol] 96.9 79.0-98.0 fL Normal 2018 [facility] (89147) Comment: Performed By: #### HEMDF, PT , BMP3, CRP2, LFT3 #### [place] [address] [address] [place], [place] Monocytes (Bld) [#/Vol] 0.9 0.0-0.8 10*3/uL High 2018 [facility] (98873) Comment: Performed By: #### HEMDF, PT , BMP3, CRP2, LFT3 #### [address] [place] [address] [place], [place] Monocytes/100 WBC (Bld) 7.8 2.0-10.0 % Normal 2018 [facility] (33127) Comment: Performed By: #### HEMDF, PT , BMP3, CRP2, LFT3 #### [address] [address] [address] [place], [place] Platelet mean volume (Bld) 9.0 7.4-10.4 fL Normal [facility] [Entitic vol] (64876 ) Comment: Performed By: #### HEMDF, PT , BMP3, CRP2, LFT3 #### [address] [address] [address] [place], [place] Platelets (Bld) [#/Vol] 172 140-440 10*3/uL Normal 2018 [facility] (46839) Comment: Performed By: #### HEMDF, PT , BMP3, CRP2, LFT3 #### [address] [address] [address] [place], [place] RBC (Bld) [#/Vol] 3.72 3.80-5.20 10*6/uL Low 04-14-2019 [facility] (47425) Comment: Performed By: #### HEMDF, PT , BMP3, CRP2, LFT3 #### [address] [address] [address] [place], [place] WBC (Bld) [#/Vol] 11.4 3.6-10.7 10*3/uL High 04-14-2019 [facility] (81218) Comment: Performed By: #### HEMDF, PT , BMP3, CRP2, LFT3 #### [address] [address] [address] [place], [place] cr hand complete 3+ views left on 2019-04-14 CR Hand Complete 3+ Patient Name: JOSE BA rmal 04-14-2019 [facility] Views Left Bebe mc ([id number]) Diagnostic Radiology Exam Date/Time 04/14/2019 12:56:29 EDT Exam CR Hand Complete 3+ Views Left Ordering Physician MD AUSTYN, SIMÓN Hoffman Accession Number [id number] CPT4 Codes 05076 () Reason For Exam Pain and swelling [...] 1 View Patient Name: JOSE BA 04-14-2019 [facility] (56533) Diagnostic Radiology Exam Date/Time 04/14/2019 13:44:29 EDT Exam CR Chest 1 View Frontal Ordering Physician [id number] CASTANO Accession Number [id number] CPT4 Codes 06792 () Reason For Exam preop Report CHEST [...] CRP [Mass/Vol] 17.3 0.0-6.0 mg/L High 04-14-2019 [facility] (52062) Comment: Result Comment: . Performed By: #### HEMDF, PT , BMP3, CRP2, LFT3 #### [facility] [address] basic metabolic panel on 2019-04-14 Calcium [Mass/Vol] 7.2 8.4-10.4 mg/dL Low 04-14-2019 [facility] (41176) Comment: Performed By: #### HEMDF, PT , BMP3, CRP2, LFT3 #### [address] [address] [place], [place] Glucose [Mass/Vol] 85 70-100 mg/dL Normal 04-14-2019 [facility] (98249) Comment: Performed By: #### HEMDF, PT , BMP3, CRP2, LFT3 #### [address] [place] [address] [place], [place] Urea nitrogen [Mass/Vol] 5 7-20 mg/dL Low 04-14 [facility] (85742) Comment: Performed By: #### HEMDF, PT , BMP3, CRP2, LFT3 #### [address] [place] [address] [place], [place] Anion gap [Moles/Vol] 4 Normal 04-14-20 [facility] (68512) Comment: Performed By: #### HEMDF, PT , BMP3, CRP2, LFT3 #### [address] [address] [place], [place] CO2 [Moles/Vol] 26 22-30 mmol/L Normal 04-14-2019 [facility] (07873) Comment: Performed By: #### HEMDF, PT , BMP3, CRP2, LFT3 #### [address] [address] [place], [place] Creatinine [Mass/Vol] 0.42 0.52-1.25 mg/dL Low 04-14-20 19 [facility] (43494) Comment: Performed By: #### HEMDF, PT , BMP3, CRP2, LFT3 #### [address] [place] [address] [place], [place] GFR/1.73 sq M > 60.0 >60 mL/min/{1.73_m2} Normal 9 [facility] predicted among Syst em (25751) blacks MDRD (S/P/Bld) [Vol rate/Area] Comment: Performed By: #### HEMDF, PT , BMP3, CRP2, LFT3 #### [facility] [address] [place], [place] GFR/1.73 sq M > 60.0 >60 mL/min/{1.73_m2} Normal 9 [facility] predicted among Syst em (07550) non-blacks MDRD (S/P/Bld) [Vol rate/Area] Comment: Result Comment: Source- MDRD equation with creatinine calibration to IDMS(NKDEP) eGFR not recommended for mireya g dose adjustment Performed By: #### HEMDF, PT , BMP3, CRP2, LFT3 #### [facility] [address] [place], [place] Potassium [Moles/Vol] 3.4 3.5-5.1 mmol/L Low 04-14-20 19 [facility] (55240) Comment: Performed By: #### HEMDF, PT , BMP3, CRP2, LFT3 #### [facility] [address] [place], [place] Chloride [Moles/Vol] 107 98-107 mmol/L Normal 9 [facility] (90729) Comment: Performed By: #### HEMDF, PT , BMP3, CRP2, LFT3 #### [facility] [place] [address] [address] [place], [place] Sodium [Moles/Vol] 137 135-145 mmol/L Normal 04-14-2019 [facility] (47998) Comment: Performed By: #### HEMDF, PT , BMP3, CRP2, LFT3 #### [facility] [address] [place], [place] add on test from his on 2019-04-14 Add on test from HIS Accepted Normal 9 [facility] (35439) Comment: Result Comment: Specimen venice ilable & acceptable for analysis. Performed By: #### ADDON ### #[facility] [address] [place] [address] Add on test from HIS Accepted Normal 9 [facility] (60158) Comment: Result Comment: Specimen venice ilable & acceptable for analysis. Performed By: #### DANIELLE DOMINGUEZ GUR, DRGA4 #### [facility] [address] [place] [address] Vital Signs Vital Sign Description Value / Unit Date Location The following section is limited to 5 en tries per type and includes entries from the following time range: 20200627 - 4. Body Temperature 99.1 [degF] 06-28-2020 [facility] (23222) Body Temperature 98.6 [degF] 06-27-2020 [facility] (27125) Body weight 64.41 kg 06-28-2020 [facility] (29970) Body weight 62.14 kg 06-27-2020 [facility] (15340) BP Diastolic 84 mm[Hg] 06-28-2020 [facility] (43081) BP Diastolic 88 mm[Hg] 06-27-2020 [facility] (15875) BP Systolic 120 mm[Hg] 06-28-2020 [facility] (31704) BP Systolic 124 mm[Hg] 06-27-2020 [facility] (36194) Pulse (Heart Rate) 62 /min 06-28-2020 [facility] (52428) Pulse (Heart Rate) 103 /min 06-27-2020 [facility] (49111) Respiratory Rate 16 /min 06-28-2020 [facility] (76039) Respiratory Rate 16 /min 06-27-2020 [facility] (19568) Encounters Date Type Reason Provider Location 07-31-2020 - Patient encounter Contact with and Lesvia (Ricardo) [facility] 07-31-2020 procedure (suspected) exposure Alex to other viral communicable diseases Comment: Suspected COVID-19 virus inf ection (Primary Dx) 06-28-2020 - Patient encounter Acute left Elsa Marin) [facility] 06-28-2020 procedure otitis media [place] Alex Comment: Acute otitis media, left (Pr imary Dx); Pruritus; Screening for HIV (human imm unodeficiency virus) 06-27-2020 - Patient encounter Itching of skin Larry Anne) [facility] 06-27-2020 procedure [facility] Comment: Pruritus (Primary Dx); Acute otitis media, left 07-31-2020 - Telemedicine Lesvia (Global Product Manager) [facility] 07-31-2020 consultation with patient 07-02-2020 - Telephone encounter Michael Schmid [facility] 07-02-2020 Alex Comment: Results Procedures Procedure Name Date Provider Location Microscopic examination of 04-20-2019 - [facility] blood, culture 04-20-2019 (76874) Comment: Order Comment: Specimen Sour ce Comment:Blood Performed By: #### HEMDF, PT , BMP3, CRP2, LFT3 #### [address] [address] Plan of Treatment Plan Description Date Location ANNUAL PCP TEAM ANNUAL PCP TEAM CHRONIC 07-31-2021 [facility] CHRONIC DISEASE VISIT DISEASE VISIT (18775) ANNUAL PCP TEAM ANNUAL PCP TEAM CHRONIC 06-28-2021 - [facility] CHRONIC DISEASE VISIT DISEASE VISIT 06-28-2021 (65912) DTAP,TDAP,TD (1 - DTAP,TDAP,TD (1 - Tdap) 06-28-2021 - [facility] Tdap) 06-28-2021 (64971) Comment: Postponed from 2005 (D eclined at this time) ANNUAL PCP TEAM CHRONIC ANNUAL PCP TEAM CHRONIC 04-23-2021 [facility] DISEASE VISIT DISEASE VISIT (32254) INFLUENZA (#1) INFLUENZA (#1) 2020 - [facility] 06-25-2020 (29004) HPV TESTING HPV TESTING 2016 - [facility] 2016 (02899) PAP TESTING PAP TESTING 2007 - [facility] 2007 (90483) ONE PNEUMOVAX PRIOR TO ONE PNEUMOVAX PRIOR TO 2005 - [facility] AGE 66 AGE 66 2005 (43590) DTAP,TDAP,TD (1 - Tdap) DTAP,TDAP,TD (1 - Tdap) 2005 [facility] (60799) BP CONTROLLED (<130/80) BP CONTROLLED (<130/80) 2004 - [facility] 2004 (73946) HEPATITIS C SCREENING HEPATITIS C SCREENING 2004 - [facility] 2004 (05570) HIV SCREENING HIV SCREENING 2004 - [facility] 2004 (61292) CBC CBC Lab Routine [facility] Screening for HIV (human (59740) immunodeficiency virus) 06/28/2020 10:53 AM EDT COMP METABOLIC PANEL COMP METABOLIC PANEL Lab [facility] Routine [facility] (94119) Screening for HIV (human immunodeficiency virus) 06/28/2020 10:53 AM EDT HIV 1 2 HIV 1 2 COMBO(AG/AB),WITH [facility] COMBO(AG/AB),WITH REFLEX REFLEX TO DIFFERENTIATION (49762) TO DIFFERENTIATION Lab Routine Screening for HIV (human immunodeficiency virus) 06/28/2020 10:53 AM EDT TSH BLD TSH BLD Lab Routine [facility] inic [facility] Screening for (02564) HIV (human immunodeficiency virus) 06/28/2020 10:53 AM EDT no information [facility] (18567) Payers Payer Name Policy Number Location [facility] (44 195) [place] [employer] [id number] [facility] (44 195) The following information is from the original human readable contentNo Payer Records FoundNo Payer Records FoundNo Payer Records Found Social History Type Social History Date Location Description Tobacco smoking status Current every day smoker 06-27-2020 - [facility] NHIS 06-28-2020 (10844) History of tobacco use Smoker 11-25-2014 [facility] (85982) Cigarettes smoked 06-27-2020 - [facility] current (pack per day) 06-28-2020 (31458) - Reported Tobacco use and Never used 06-27-2020 - [facility] exposure 06-28-2020 (45412) Alcohol intake Current drinker of 06-27-2020 - [facility] sharmila alcohol (finding) 06-28-2020 (73040) Alcohol Comment h/o alcoholism 09-14-2018 - [facility] 09-14-2018 (82542) Sex Assigned At Not on file [facility] (76166) Exposure to SARS-CoV-2 Not sure [facility] (event) (22402) Exposure to SARS-CoV-2 Yes [facility] (event) (32377) The following information is from the original [...] Procedures CONSULT TO DERMATOLOGY Larry Anne) [address] [place] [address] Status Reason Specialty Diagnoses / Referred By Referred To Procedures Contact Contact Authorized PCP Requested Ent - Diagnoses Acute otitis media, left Pruritus [place], Referral Otolaryngology Procedures CONSULT TO ENT NEW PATIENT VISIT LEVEL 5 Elsa Marin) [address] [place] [address] Instructions Patient InstructionsLarry Aponte) - 06/27/2020 2:53 [...] Ba Date of : 1985 MRN/E #: [id number] Chief Complaint Patient presents with: Recheck: visit [...] and H2 gamaliel and will refer to ENT/debeaker for evaluation and testing. Obtain labs as [...] Smith MD documented in this encounterLesvia Willett (Global Product Manager) - 07/31/2020 1:06 PM EDT This Team Access Model visit is a phone encounter. It required patient-provider interaction for the medical decision making as documented below. Patient agrees to the visit: Yes Patient Location: [place] CC: Patient presents with: Covid19 Concern HPI: [...] not have transportation, needs order sent to [facility]. Advised to self quarantineuntil further notice [...] BE BASED ON THE PRIMARY CLINICAL RECORDS. [facility] provides no warranty or guarantee of the accuracy or completeness of information in this document. UNRECOGNIZED CONTENT PROVIDED BELOW FOR UNRECOGNIZED SECTION INFORMATION SOURCE DATE CREATED AUTHOR AUTHOR'S ORGANIZATIO N 05/03/2019 [facility] DATE CREATED AUTHOR AUTHOR'S ORGANIZATIO N 08/06/2020 [facility] UNRECOGNIZED CONTENT PROVIDED BELOW FOR UNRECOGNIZED SECTION Source Comments In the event this information is protected by the Federal Confidentiality of Alcohol and Drug Abuse Patient Records regulations: The Federal rules restrict any use of the information to criminally investigate or prosecute any alcohol or drug abuse patient.[facility] the event this information is protected by the Federal Confidentiality of Alcohol and Drug Abuse Patient Records regulations: The Federal rules restrict any use of the information to criminally investigate or prosecute any alcohol or drug abuse patient.[facility] Hospital[facility] the event this information is protected by the Federal Confidentiality of Alcohol and Drug Abuse Patient Records regulations: The Federal rules restrict any use of the information to criminally investigate or prosecute any alcohol or drug abuse patient.[facility] Hospital[facility] the event this information is protected by the Federal Confidentiality of Alcohol and Drug Abuse Patient Records regulations: The Federal rules restrict any use of the information to criminally investigate or prosecute any alcohol or drug abuse patient.[facility] UNRECOGNIZED CONTENT PROVIDED BELOW FOR UNRECOGNIZED [...]
== END 2020-03-20 15:11 | disposition home or self-care (01) ==
PROVIDERS: Emergency Provider Emergency Medicine
DX: S11.21XA Laceration without foreign body of pharynx and cervical esophagus, initial encounter (principal); F50.2 Bulimia nervosa
CPT/HCPCS: 71250; 74220; 80048; 85025; 85610; 85730; 96365; 96375; 99283; J7030; A4216; J2405

== ENCOUNTER → 2020-07-10 10:54 | Outpatient (CLI) | payer MEDICAID, SELFPAY ==
[2020-07-13 03:07] LABS: Alternaria tenuis <0.10 kU/L (Class 0); Ash, White 0.14 kU/L (Class 0/I); Aspergillus fumigatus <0.10 kU/L (Class 0); Bermuda Grass 0.12 kU/L (Class 0/I); Birch 0.15 kU/L (Class 0/I); Black Walnut 0.21 kU/L (Class 0/I); Cat Hair / Dander,Stand 1.08 kU/L (Class II); Cedar, Mountain 0.17 kU/L (Class 0/I); Cladosporium herbarum <0.10 kU/L (Class 0); Cockroach, American 0.11 kU/L (Class 0/I); Cottonwood 0.28 kU/L (Class 0/I); Dog Epithelia 0.39 kU/L (Class I); Elm, American White 0.24 kU/L (Class 0/I); Immunoglobulin E 574 IU/mL (6-495); Maple/Box Elder 0.24 kU/L (Class 0/I); Mulberry, White <0.10 kU/L (Class 0); Oak, White 0.21 kU/L (Class 0/I); Pecan 0.86 kU/L (Class II); Penicillium Notatum <0.10 kU/L (Class 0); Pigweed, Rough <0.10 kU/L (Class 0); Ragweed, Short/Common 3.26 kU/L (Class III); Russian Thistle 0.34 kU/L (Class I); Sheep Sorrel 0.12 kU/L (Class 0/I); Timothy Grass 0.53 kU/L (Class I)
[2020-07-13 16:19] LABS: Mouse Urine <0.10 kU/L (Class 0)
== END ==
PROVIDERS: PCP Internal Medicine; Visit Provider Otolaryngology
DX: T78.40XA Allergy, unspecified, initial encounter (principal)
CPT/HCPCS: 36415; 82785; 86003

== ENCOUNTER → 2020-08-02 09:35 | Outpatient (CLI) | payer MEDICAID, SELFPAY | PROVIDERS: PCP Internal Medicine; Referring Provider Internal Medicine; Visit Provider Internal Medicine | DX: Z20.828 Contact with and (suspected) exposure to other viral communicable diseases (principal) | CPT/HCPCS: 87635; C9803; U0003 ==

== ENCOUNTER 2021-06-17 23:15 | Emergency (ER) | payer MEDICAID, SELFPAY ==
[2021-06-17 23:16] VITALS: BP 146/93; PULSE 128; RESP 16; TEMP 36.9; O2SAT 98; BMI 24.2
--- NOTE | 2021-06-18 01:20 | EX.ED.DYSGE1 ---
HPI History of Present Illness Chief Complaint: General Illness Informant: patient Onset/Context/Timing Onset: Days Context: Sudden Onset Timing: Continuous Quality: Upper respiratory symptoms with myalgias and arthralgias Current Severity: Mild Maximum Severity: Moderate Worsened by: Nothing Relieved by: Nothing Associated Symptoms Associated Symptoms: Upper respiratory symptoms and exposure to Covid Narrative Prior similar symptoms: No Recent Illness/Hospitalization: No PFSH PFSH Medical History HTN (hypertension) Home Medications lorazepam 0.5 mg PO TID PRN #10 tab 03/20/20 [Rx Last Taken Unknown] omeprazole 20 mg PO DAILY #30 cap 03/20/20 [Rx Last Taken Unknown] ondansetron 4 mg PO Q8H PRN PRN #10 tab 03/20/20 [Rx Last Taken Unknown] hydrochlorothiazide 12.5 mg PO DAILY #30 tab 06/18/21 [Rx Last Taken Unknown] Allergy/AdvReac Type Severity Reaction Status Date / Time No Known Allergies Allergy Verified 06/17/21 23:18 Social History (Updated 06/18/21 @ 01:[address] Robert Max MD) household members: other Smoking Status: Current every day smoker tobacco type: cigarettes alcohol intake: current alcohol intake frequency: other substance use type: does not use ROS ROS ED Constitutional Constitutional ED: Reports chills, fever(s) and sweats Eyes Eyes: Denies blurry vision, change in vision or diplopia ENT ENT ED: Reports ear pain right (Right ear pain with purulent drainage), rhinorrhea and sore throat Cardiovascular Cardiovascular: Reports palpitations; Denies chest pain, orthopnea or paroxysmal nocturnal dyspnea Respiratory/Chest Respiratory/Chest: Reports cough, dyspnea and dyspnea on exertion; Denies orthopnea or paroxysmal nocturnal dyspnea Gastrointestinal Gastrointestinal: Reports abdominal pain and nausea; Denies diarrhea or vomiting Genitourinary Genitourinary ED: Denies dysuria, hematuria or urinary frequency Musculoskeletal Musculoskeletal: Denies arthralgias, myalgias or neck pain Integumentary Denies rash Neurologic Neurologic: Reports headache(s); Denies weakness Endocrine Endocrinology: Denies polydipsia, polyphagia or polyuria EXAM Physical Exam Const Vital Signs: 06/17/21 23:16 06/18/21 00:07 Temperature 98.4 F Temperature Source Temporal Pulse Rate 128 H Respiratory Rate 16 Respiratory Effort Normal Non-Labored Respiratory Pattern Normal Blood Pressure 146/93 H Blood Pressure Mean 110 Pulse Ox 98 Oxygen Delivery Method Room Air Positive well nourished and well developed General Appearance ED: well developed HEENT Reports moist mucous membranes HEENT Narrative: Perforated right eardrum March 26 acute otitis media, Eyes PERRL and EOMs intact bilaterally General Eye ED: Negative for pale conjunctiva Neck no lymphadenopathy, supple and no JVD Resp normal respiratory effort and clear to auscultation bilaterally Cardio regular rhythm, S1 normal heart sound, S2 normal heart sound and no murmurs Rate: tachycardic GI normal to inspection, nondistended, normoactive bowel sounds and non-tender Palpation: soft Back/Spine no CVA tenderness Neuro oriented x3 and CN's II-XII intact bilaterally Sensorium / Orientation: alert Motor Exam: strength 5/5 throughout Psych mental status grossly normal Skin no rashes or lesions noted, no wounds and skin turgor normal General Skin Exam: elasticity normal MDM MDM MDM Narrative Medical decision making narrative: Patient with viral-like symptoms. With exposure to Covid will obtain Covid test. Sensory is not tachypneic or hypoxic chest x-ray is not obtained. She is tachycardic. Blood pressure is elevated. She admits she has not been compliant with the medication. She was prescribed hydrochlorothiazide. Lab Data Lab results narrative: Covid test was positive. Since onset of symptoms 4 days ago she has hypertension will refer to monoclonal antibody therapy Discharge Plan Triage Chief Complaint: General Illness ED Provider: Robert Max Dx/Rx/DC Orders Clinical Impression: COVID-19, Essential hypertension Instructions: Coronavirus Disease 2019 (COVID-19): Caring for Yourself or Others, ED Hypertension New Begin Treatment Prescriptions: New hydrochlorothiazide 12.5 mg tablet 12.5 mg PO DAILY Qty: 30 RF: 2 No Action lorazepam 0.5 MG tablet 0.5 mg PO TID PRN (Reason: Anxiety) Qty: 10 RF: 0 omeprazole 20 MG capsule 20 mg PO DAILY Qty: 30 RF: 0 ondansetron 4 MG tablet 4 mg PO Q8H PRN PRN (Reason: Nausea) Qty: 10 RF: 0 Other Ambulatory Orders: COVID Outpatient Monoclonal Antibody Referral (Routine) Timeframe: 2 Days Location: None Selected Ordered By: Dr. Robert Max Primary Care Provider: Michael Richter Referrals: Michael Richter MD [Primary Care Provider] - 1-2 Weeks Disposition Disposition: Home, Self Care
[2021-06-18 01:34] VITALS: BP 120/85; PULSE 99; RESP 16; O2SAT 100
== END 2021-06-18 01:35 | disposition home or self-care (01) ==
PROVIDERS: Emergency Provider Emergency Medicine; PCP Internal Medicine
DX: U07.1 COVID-19 (principal); I10 Essential (primary) hypertension; H92.01 Otalgia, right ear; Z91.14 Patient's other noncompliance with medication regimen; F17.210 Nicotine dependence, cigarettes, uncomplicated; Z79.899 Other long term (current) drug therapy
CPT/HCPCS: 87426; 99282